=== PATIENT | male | born 1960 | race Caucasian/White ===

== ENCOUNTER 2016-07-04 09:58 | Inpatient (IN) | payer OTHER ==
[2016-07-04] VITALS (7 sets, daily range): BP systolic 97–103; BP diastolic 63–68; PULSE 58–96; TEMP 36.6–36.9; O2SAT 93–97; Ht 162.6 cm; Wt 46.3 kg
[~2016-07-04] VITALS: Ht 162.6 cm; Wt 46.3 kg
[~2016-07-04 09:58] MED LIST: CALC500C70 PO; DFL100 PO; LORA-741 PO; METO5TAB2 PO; MPRUDL PO; NUTR-1276 PEG; OXYC1TAB3 PO; PRED-301 PO; PRED10TA PO; PROC1TAB18 PO; TACR0.5C5 PO; TRAM-10 PO; VALA500T60 PO; WARF3TAB PO; WARF3TAB6 PO
[2016-07-04] MEDS ORDERED: SODIUM CHLORIDE 0.9% 500ML 500 ML IV STA (10:17)
[2016-07-04] MEDS ORDERED: ALBUT/IPRATROP 3MG/0.5MG NEB 3 ML VIAL INH STA (10:17)
[2016-07-04] MEDS ORDERED: METO25TA56 PO (10:21)
[2016-07-04] MEDS ORDERED: ESCI1TAB6 PO (10:21)
[2016-07-04] MEDS ORDERED: ONDA8TAB6 PO (10:21)
[2016-07-04] MEDS ORDERED: PROC1TAB5 PO (10:21)
--- NOTE | 2016-07-04 10:21 | EMERGENCY ROOM VISIT NOTE ---
History First contact with patient: 10:08 Chief Complaint: RESPIRATORY PROBLEMS Stated Complaint: CAN'T BREATHE, CHEST HURTS, FEVER, COUGHING Nursing Triage Summary: pt c/o cold sx stratedtuesday and reports getting harder to breath. had fever yesterday and this am did not take anything. pt has hx of pneumonia History of Present Illness The patient is a 56 year old male who presents to the Emergency Room with complaints of flulike symptoms. The patient states his symptoms started 2 days ago. He reports arthralgias, myalgias, cough and fever. He states his temperature was 100.7F yesterday. The patient states he is having increasing difficulty breathing. The patient has a history of bone marrow transplant in 2013 and does take Prograf. The patient has a history of pulmonary embolus but states that his Coumadin was stopped 2 days ago which was one year after his pulmonary embolus. The patient states his entire family have similar symptoms. He reports pain with deep inspiration. He reports sinus congestion and cough. He denies any abdominal pain, nausea or vomiting. He denies any extremity swelling. Review of Systems A 10 system review of systems was completed with positives and pertinent negatives listed in the HPI. Past Medical/Surgical History Medical Problems: (1) Compression fracture (2) Emphysema (3) H/O cardiac arrest (4) H/O steroid-induced myopathy (5) History of DVT (deep vein thrombosis) (6) History of pulmonary embolus (PE) (7) History of seizure (8) HISTORY OF TOBACCO USE (9) Myelodysplastic syndrome (10) Nonischemic cardiomyopathy (11) Osteoporosis (12) PERNICIOUS ANEMIA (13) Pneumonia (14) Scleroderma Surgical Problems: (1) H/O esophagogastroduodenoscopy (2) H/O tracheostomy (3) History of bone marrow transplant (4) S/p facial reconstruction surgery (5) S/P IVC filter (6) S/P tonsillectomy Family History Diabetes mellitus FATHER FH: cancer MOTHER (lung) FH: heart disease FATHER FH: lung disease Hypertension Social History Smoking Status: Never Smoker Alcohol Use: none Drug Use: none Marital Status: Housing Status: lives with family Occupation Status: employed Current/Historical Medications Scheduled Atovaquone (Mepron), 10 ML PO DAILY Calcium/Vitamin D (Os-Herb 500 Plus D), 1,000 MG PO DAILY Fluconazole (Fluconazole), 400 MG PO DAILY Metoprolol Succinate (Toprol Xl), 6.25 MG PO BID Prednisone (Prednisone), 5 MG PO UD Prednisone Tab (Prednisone), 10 MG PO UD Tacrolimus (Prograf), 0.5 MG PO Q2D Valacyclovir (Valtrex), 1 TAB PO DAILY AT LUNCH Scheduled PRN Lorazepam (Ativan), 0.5 MG PO DAILY PRN for Anxiety Ondansetron Hcl (Zofran), 8 MG PO BID PRN for Nausea Oxycodone Ir (Roxicodone Ir), 5 MG PO Q4H PRN for Pain Tramadol (Ultram), 1 TAB PO TID PRN for Pain Allergies Coded Allergies: Sulfamethoxazole w/Trimethoprim (Verified Allergy, Severe, ANAPHYLAXIS; VERY SICK; HOSPITALIZED, 07/04/16) Celecoxib (Verified Allergy, Unknown, hives/rash, 07/04/16) Physical Exam Vital Signs Date Time Temp Pulse Resp B/P Pulse Ox O2 Delivery O2 Flow Rate FiO2 07/04/16 11:02 106 22 114/73 98 Nasal Cannula 2.0 07/04/16 11:00 Nasal Cannula 2.0 07/04/16 10:29 98 07/04/16 10:16 95 Nasal Cannula 2.0 07/04/16 10:05 Nasal Cannula 2.0 07/04/16 10:00 36.9 101 20 92/63 82 Room Air Physical Exam VITALS: Vitals are noted on the nurse's note and reviewed by myself. Vital signs stable. The patient was initially hypotensive, tachycardic and hypoxic in triage. The patient's pulse oximetry was 94% on room air when the probe was applied to his ear. GENERAL: This is a 56-year-old male, in no acute distress, nondiaphoretic, 4 out in 7. SKIN: The skin was without rashes, erythema, edema, or bruising. There is no tenting of the skin. Capillary reflex less than 2 seconds. HEAD: Normocephalic atraumatic. EARS: External auditory canals clear, tympanic membranes pearly pierce without erythema or effusion bilaterally. EYES: Pupils equal round and reactive to light and accommodation. Conjunctivae without injection, sclerae without icterus. Extraocular movements intact. NOSE: Patent, turbinates without inflammation or discharge. MOUTH: Mucous membranes moist. Tonsils are not enlarged. Pharynx without erythema or exudate. Uvula midline. Airway patent. Tongue does not deviate. NECK: Supple without nuchal rigidity. No lymphadenopathy. No thyromegaly. Cervical spine is nontender. No JVD. HEART: Regular rate and rhythm without murmurs gallops or rubs. LUNGS: Rhonchi throughout. No retractions or accessory muscle use. ABDOMEN: Positive bowel sounds x 4. Soft, nontender, without masses or organomegaly. MUSCULOSKELETAL: No muscle atrophy, erythema, or edema noted. Full range of motion in all extremities Normal gait. Strength 5/5 throughout. NEURO: Patient was alert and oriented to person place and time. No focal neurological deficits. Medical Decision & Procedures ER Provider Diagnostic Interpretation: CHEST ONE VIEW PORTABLE CLINICAL HISTORY: Cough. Fever. COMPARISON STUDY: Chest radiograph July 15, 2014. FINDINGS: An IVC filter and vertebral augmentation are noted. There are multiple compression fractures within visualized portions of the spine. There is no pneumothorax or pleural effusion. There are mild right lower lung opacities. Mild interstitial thickening is noted. Cardiac size is normal. The patient is rotated. There is suspected calcific tendinitis of the right rotator cuff. Apical bulla or blebs are noted. IMPRESSION: Mild bibasilar opacities and interstitial thickening. The findings may reflect an infectious process or less likely pulmonary edema. Laboratory Results 07/04/16 10:24 Red Blood Count 4.25, Mean Corpuscular Volume 105.4, Mean Corpuscular Hemoglobin 36.2, Mean Corpuscular Hemoglobin Concent 34.4, Mean Platelet Volume 10.5, Neutrophils (%) (Auto) 82.4, Lymphocytes (%) (Auto) 7.5, Monocytes (%) ( Auto) 9.6, Eosinophils (%) (Auto) 0.1, Basophils (%) (Auto) 0.1, Neutrophils # ( Auto) 14.85, Lymphocytes # (Auto) 1.36, Monocytes # (Auto) 1.73, Eosinophils # ( Auto) 0.02, Basophils # (Auto) 0.02 07/04/16 10:24 Test 07/04/16 10:24 07/04/16 10:31 07/04/16 10:33 White Blood Count 18.04 K/uL (4.8-10.8) Red Blood Count 4.25 M/uL (4.7-6.1) Hemoglobin 15.4 g/dL (14.0-18.0) Hematocrit 44.8 % (42-52) Mean Corpuscular Volume 105.4 fL (80-100) Mean Corpuscular Hemoglobin 36.2 pg (25-34) Mean Corpuscular Hemoglobin Concent 34.4 g/dl (32-36) Platelet Count 150 K/uL (130-400) Mean Platelet Volume 10.5 fL (7.4-10.4) Neutrophils (%) (Auto) 82.4 % Lymphocytes (%) (Auto) 7.5 % Monocytes (%) (Auto) 9.6 % Eosinophils (%) (Auto) 0.1 % Basophils (%) (Auto) 0.1 % Neutrophils # (Auto) 14.85 K/uL (1.4-6.5) Lymphocytes # (Auto) 1.36 K/uL (1.2-3.4) Monocytes # (Auto) 1.73 K/uL (0.11-0.59) Eosinophils # (Auto) 0.02 K/uL (0-0.5) Basophils # (Auto) 0.02 K/uL (0-0.2) RDW Standard Deviation 57.1 fL (36.4-46.3) RDW Coefficient of Variation 14.8 % (11.5-14.5) Immature Granulocyte % (Auto) 0.3 % Immature Granulocyte # (Auto) 0.06 K/uL (0.00-0.02) Prothrombin Time 13.4 SECONDS (9.0-12.0) Prothromb Time International Ratio 1.2 (0.9-1.1) Activated Partial Thromboplast Time 40.6 SECONDS (21.0-31.0) Partial Thromboplastin Ratio 1.6 Anion Gap 10.0 mmol/L (3-11) Est Creatinine Clear Calc Drug Dose 36.7 ml/min Estimated GFR () 59.0 Estimated GFR (Non- 50.9 BUN/Creatinine Ratio 19.6 (10-20) Calcium Level 8.4 mg/dl (8.5-10.1) Total Bilirubin 0.6 mg/dl (0.2-1) Aspartate Amino Transf (AST/SGOT) 26 U/L (15-37) Alanine Aminotransferase (ALT/SGPT) 25 U/L (12-78) Alkaline Phosphatase 48 U/L (45-117) Troponin I < 0.015 ng/ml (0-0.045) Total Protein 7.6 gm/dl (6.4-8.2) Albumin 3.6 gm/dl (3.4-5.0) Globulin 4.0 gm/dl (2.5-4.0) Albumin/Globulin Ratio 0.9 (0.9-2) Immunoglobulin G 661.0 mg/dL (700-1600) Immunoglobulin A 117.0 mg/dL (70-400) Immunoglobulin M 124.0 mg/dL (40-230) Hepatitis C Antibody Screen NEG (NEG) Bedside Lactic Acid Venous 1.43 mmol/L (0.90-1.70) Influenza Type A Antigen Neg for Influ A (NEG) Influenza Type B Antigen Neg for Influ B (NEG) Medications Administered Medications (Trade) Dose Ordered Sig/Monalisa Route Start Time Stop Time Status Last Admin Dose Admin Albuterol/ Ipratropium 3 ml 3 ml NOW STAT INH 07/04/16 10:17 07/04/16 10:19 DC 07/04/16 10:33 3 ML Sodium Chloride (Nss 500ml) 500 ml @ 999 mls/hr Q31M STAT IV 07/04/16 10:17 07/04/16 10:47 DC 07/04/16 10:33 999 MLS/HR Piperacillin Sod/ Tazobactam Sod (Zosyn Iv) 4.5 gm NOW STAT IV 07/04/16 10:43 07/04/16 10:47 DC 07/04/16 10:58 4.5 GM Levofloxacin (Levaquin / D5W) 750 mg NOW ONCE IV 07/04/16 10:45 07/04/16 10:47 DC 07/04/16 11:36 750 MG Procedure The patient was monitored on a manager monitoring. He maintained a normal sinus rhythm without ectopy. The patient's initial triage pulse oximetry was 82% on room air. There was some difficulty obtaining the pulse ox. When he was applied to his ear it was approximately 94% on room air. He was placed on 2 L of oxygen. ECG Indication: SOB/dyspnea Rate (beats per minute): 90 Rhythm: normal sinus Findings: no acute ischemic change Change: no significant change ED Course The patient was seen and examined. Previous visits were reviewed. The patient was afebrile but does report a fever yesterday. He has a leukocytosis of 18.04 with left shift. His BUN/creatinine creatinine are slightly elevated. Rapid influenza was negative. Lactic acid was not elevated. Blood cultures are pending. Chest x-ray reveals by basilar opacities The patient was given a DuoNeb He was hydrated with 500 mL's normal saline He was given IV Zosyn and IV Levaquin The patient presents with upper respiratory symptoms, likely infectious in etiology. The chest x-ray reveals bibasilar opacities and this likely represents a pneumonia. He has been hypoxic. He is immunocompromised and has had a fever, leukocytosis with left shift. The patient will require further evaluation and management in the hospital. I discussed the case with the [facility] service and they will evaluate the patient. The patient was also seen and examined by who agrees with the assessment and treatment plan. Medical Decision DIFFERENTIAL DIAGNOSIS: Aortic dissection, myocarditis, pericarditis, cervical disc disease, costochondritis, herpes zoster, rib fracture, pleuritis, pneumonia , pulmonary embolus, tension pneumothorax, anxiety disorder, somatoform disorder , choledocholithiasis, status, esophagitis, esophageal spasm, esophageal reflux , esophageal rupture, pancreatitis, peptic ulcer disease, cardiac ischemia, ST elevation ID, acute coronary syndrome, arrhythmia, coronary artery vasospasm. vavular heart disease, coronary artery disease, among others. Impression Primary Impression: Pneumonia Additional Impression: Hypoxia Departure Information Referrals Lew Morelos M.D. (PCP) Patient Instructions [facility] Problem Qualifiers Primary Impression: Pneumonia
--- NOTE | 2016-07-04 10:37 | DIAGNOSTIC IMAGING REPORT ---
CHEST ONE VIEW PORTABLE CLINICAL HISTORY: Cough. Fever. COMPARISON STUDY: Chest radiograph July 15, 2014. FINDINGS: An IVC filter and vertebral augmentation are noted. There are multiple compression fractures within visualized portions of the spine. There is no pneumothorax or pleural effusion. There are mild right lower lung opacities. Mild interstitial thickening is noted. Cardiac size is normal. The patient is rotated. There is suspected calcific tendinitis of the right rotator cuff. Apical bulla or blebs are noted. IMPRESSION: Mild bibasilar opacities and interstitial thickening. The findings may reflect an infectious process or less likely pulmonary edema. Electronically signed by: Aric Hicks M.D. 07/04/2016 10:35 AM Dictated Date/Time: 07/04/2016 10:31 AM
[2016-07-04 10:39] LABS: HEMATOCRIT 44.8 % (42-52); MEAN CELL VOLUME 105.4 fL (80-100); MEAN CORPUSCULAR HEMOGLOBIN 36.2 pg (25-34); MEAN CORPUSCULAR HGB CONC 34.4 g/dl (32-36); MEAN PLATELET VOLUME 10.5 fL (7.4-10.4); PLATELET COUNT 150 K/uL (130-400); RED BLOOD COUNT 4.25 M/uL (4.7-6.1); WHITE BLOOD COUNT 18.04 K/uL (4.8-10.8)
[2016-07-04] MEDS ORDERED: PIPERACILLIN/TAZOBACTAM 4.5 GM/100ML D5W IV STA (10:43)
[2016-07-04] MEDS ORDERED: LEVAQUIN 750MG / 150ML D5W IV ONE (10:45)
[2016-07-04 10:46] LABS: INR 1.2 (0.9-1.1); PARTIAL THROMBOPLASTIN RATIO 1.6; PROTHROMBIN TIME (PATIENT) 13.4 SECONDS (9.0-12.0)
--- NOTE | 2016-07-04 10:49 | EMERGENCY ROOM VISIT NOTE ---
ED Visit Note First contact with patient: 10:08 56-year-old male with respiratory distress was fully evaluated by Charmaine Coyne. Please see her note. I also independently evaluated the patient. The patient appears to have a pneumonia. He does also have a prior history of congestive heart failure. Multiple labs and imaging were obtained. Please see the PAs note. The patient will require admission. The hospitalist was consulted.
[2016-07-04 10:58] LABS: BASO % 0.1 %; BASO ABS # 0.02 K/uL (0-0.2); COMPLETE YES; EOS % 0.1 %; IG% 0.3 %; LYMPH % 7.5 %; LYMPH ABS # 1.36 K/uL (1.2-3.4); MONO % 9.6 %; NEUT % 82.4 %
[2016-07-04 11:04] LABS: ALT/SGPT 25 U/L (12-78); AST/SGOT 26 U/L (15-37); BLOOD UREA NITROGEN 29 mg/dl (7-18); BUN/CREATININE RATIO 19.6 (10-20); CALCIUM 8.4 mg/dl (8.5-10.1); CARBON DIOXIDE 24 mmol/L (21-32); CHLORIDE 101 mmol/L (98-107); GLUCOSE 102 mg/dl (70-99); POTASSIUM 4.1 mmol/L (3.5-5.1); SODIUM 135 mmol/L (136-145)
[2016-07-04 11:09] LABS: ALB/GLOB RATIO 0.9 (0.9-2); ALKALINE PHOSPHATASE 48 U/L (45-117)
[2016-07-04] MEDS ORDERED: METO1TAB31 PO (12:06)
[2016-07-04] MEDS ORDERED: POLYETHYLENE (MIRALAX) 17 GM PACK PO PRN (12:15)
[2016-07-04] MEDS ORDERED: ACETAMINOPHEN 325 MG TAB PO PRN (12:15)
[2016-07-04] MEDS ORDERED: TRAMADOL HCL 50 MG TAB PO PRN (12:45)
[2016-07-04] MEDS ORDERED: LORAZEPAM 0.5 MG TAB PO PRN (12:45)
[2016-07-04] MEDS ORDERED: ONDANSETRON 8 MG TAB PO PRN (12:45)
[2016-07-04] MEDS ORDERED: OXYCODONE HCL IR 5 MG TAB (IMMEDIATE RELEASE) PO PRN (12:45)
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
[2016-07-04] MEDS ORDERED: COUGH DROP (SUGAR FREE) LOZ 24 LOZ/1 BOX ONE (13:29)
[2016-07-04] MEDS ORDERED: LEVOFLOXACIN CONSULT ACTIVE PRN (14:15)
[2016-07-04] MEDS ORDERED: VANCOMYCIN CONSULT ACTIVE PRN (14:30)
[2016-07-04] MEDS ORDERED: PIPERACILL/TAZOBAC CONSULT ACTIVE PRN (14:30)
[2016-07-04] MEDS ORDERED: VANCOMYCIN INJ 1,100 MG in SODIUM CHLORIDE 0.9% 250ML 250 ML IV ONE (14:45)
--- NOTE | 2016-07-04 14:55 | Oncology Consultation ---
Oncology/Heme Consultation Date of Consultation: Jul 04, 2016. Attending Physician: Pooja. Guajardo S Reason for Consultation: History of myelodysplasia History of Present Illness is a long-term patient of Dr. Vigil. He has a history of myelodysplasia the dates back to at least 2013 and is status post bone marrow transplant. This is been complicated by chronic [id number] disease. The patient describes GI problems with this. He also states that post transplant he did have a pulmonary embolism. That particular year was complicated and he did have a feeding tube that has since been removed. Prior to the bone marrow transplant he states that he has a history of scleroderma in addition. He is now minute with what sounds like and what clinically appears to be a pneumonia. He denies significant weight loss nausea or vomiting. He denies really any significant shaking chills. He denies worsening shortness of breath. The chart reflects that he had a few days prior to admission fever and productive cough Past Medical/Surgical History Medical Problems: (1) Rib pain on right side Status: Acute Family History Diabetes mellitus FATHER FH: cancer MOTHER (lung) FH: heart disease FATHER FH: lung disease Hypertension Social History Smoking Status: Current Every Day Smoker Alcohol Use: occasionally Housing Status: lives with family Allergies Coded Allergies: Sulfamethoxazole w/Trimethoprim (Verified Allergy, Severe, ANAPHYLAXIS; VERY SICK; HOSPITALIZED, 07/04/16) Celecoxib (Verified Allergy, Unknown, hives/rash, 07/04/16) Home Medications Scheduled Atovaquone (Mepron), 10 ML PO DAILY Calcium/Vitamin D (Os-Herb 500 Plus D), 1,000 MG PO DAILY Fluconazole (Fluconazole), 400 MG PO DAILY Metoprolol Succinate (Toprol Xl), 6.25 MG PO BID Prednisone (Prednisone), 5 MG PO UD Prednisone Tab (Prednisone), 10 MG PO UD Tacrolimus (Prograf), 0.5 MG PO Q2D Valacyclovir (Valtrex), 1 TAB PO DAILY AT LUNCH Scheduled PRN Lorazepam (Ativan), 0.5 MG PO DAILY PRN for Anxiety Ondansetron Hcl (Zofran), 8 MG PO BID PRN for Nausea Oxycodone Ir (Roxicodone Ir), 5 MG PO Q4H PRN for Pain Tramadol (Ultram), 1 TAB PO TID PRN for Pain Current Inpatient Medications Current Inpatient Medications Medications (Trade) Dose Ordered Sig/Monalisa Route Start Time Stop Time Status Last Admin Dose Admin Heparin Sodium (Porcine) 5000 unit 5,000 unit Q8 SQ 07/04/16 22:00 08/03/16 21:59 Sodium Chloride (Nss 1000ml) 1,000 ml @ 100 mls/hr Q10H IV 07/04/16 13:00 07/05/16 08:59 Acetaminophen (Tylenol Tab) 650 mg Q4H PRN PO 07/04/16 12:15 08/03/16 12:14 Polyethylene 17 gm 17 gm DAILY PRN PO 07/04/16 12:15 08/03/16 12:14 Levofloxacin/Prmx (Levaquin / D5W/ Premixed D5W) 150 ml @ 100 mls/hr Q2D@1100 IV 07/06/16 11:00 07/11/16 10:59 Calcium/Vitamin D (Caltrate Plus Tab) 1 tab BID PO 07/04/16 21:00 08/03/16 20:59 Fluconazole (Diflucan Tab) 400 mg DAILY PO 07/05/16 09:00 08/04/16 08:59 Lorazepam (Ativan Tab) 0.5 mg DAILY PRN PO 07/04/16 12:45 08/03/16 12:44 Ondansetron HCl (Zofran Tab) 8 mg BID PRN PO 07/04/16 12:45 08/03/16 12:44 Oxycodone HCl (Roxicodone Immediate Rel Tab) 5 mg Q4H PRN PO 07/04/16 12:45 07/18/16 12:44 Prednisone (PredniSONE TAB) 5 mg MoWeFr@0900 PO 07/05/16 09:00 08/04/16 08:59 Prednisone (PredniSONE TAB) 10 mg SuTuThSa@0900 PO 07/06/16 09:00 08/05/16 08:59 Tacrolimus (Prograf Cap) 0.5 mg Q2D PO 07/05/16 09:00 08/04/16 08:59 Tramadol HCl (Ultram Tab) 50 mg TID PRN PO 07/04/16 12:45 08/03/16 12:44 Valacyclovir HCl (Valtrex Tab) 500 mg DAILY PO 07/05/16 09:00 08/04/16 08:59 Atovaquone (Mepron Susp) 1,500 mg DAILY PO 07/05/16 09:00 08/04/16 08:59 Levofloxacin (Consult) 1 ea UD PRN N/A 07/04/16 14:15 08/03/16 14:14 Vancomycin HCl (Consult) 1 ea UD PRN N/A 07/04/16 14:30 08/03/16 14:29 Piperacillin Sod/ Tazobactam Sod (Consult) 1 ea UD PRN N/A 07/04/16 14:30 08/03/16 14:29 Metoprolol Succinate 6.25 mg 6.25 mg BID PO 07/04/16 21:00 08/03/16 20:59 Vancomycin HCl 1100 mg/Sodium Chloride 272 ml @ 125 mls/hr TODAY@1445 ONCE IV 07/04/16 14:45 07/04/16 16:55 Piperacillin Sod/ Tazobactam Sod/ Dextrose (Zosyn Iv/D5 100ml) 115 ml @ 28.75 mls/ hr Q8H IV 07/04/16 16:00 07/11/16 15:59 Review of Systems Constitutional: Negative for weight loss, night sweats, or fever Eyes: Negative for event change of vision ENT: Negative for epistaxis, nasal discharge, sore throat, or deafness Cardiovascular: Negative for chest pain, palpitations, dizziness, diaphoresis Respiratory: Negative for new shortness of breath,hemoptysis, or purulent cough Gastrointestinal: Negative for diarrhea, hematemesis, melena, nausea, vomiting , or dyspepsia Integumentary (skin): Negative for rash or jaundice discoloration Genitourinary: Negative for urinary frequency, hematuria, or dysuria Neurological: Negative for weakness, seizure activity, headache, or dizziness Lymphatic/Hematologic: Negative for petechiae, bleeding or new adenopathy Musculoskeletal: Negative for new joint or back pain Allergic/Immunologic: Negative for unusual rash or pruritis. Physical Exam Date Time Temp Pulse Resp B/P Pulse Ox O2 Delivery O2 Flow Rate FiO2 07/04/16 13:35 36.9 96 18 100/64 96 Nasal Cannula 2.0 07/04/16 12:31 92 16 93/64 96 Nasal Cannula 2.0 07/04/16 11:02 106 22 114/73 98 Nasal Cannula 2.0 07/04/16 11:00 Nasal Cannula 2.0 07/04/16 10:29 98 07/04/16 10:16 95 Nasal Cannula 2.0 07/04/16 10:05 Nasal Cannula 2.0 07/04/16 10:00 36.9 101 20 92/63 82 Room Air Constitutional: vitals are stable. Eyes: Eyes are ZAMZAM EOMI without conjuctival erythema or icterus. ENT: External examination was negative for masses. Neck: Negative for masses or palpable thyromegaly Respiratory: Lung sounds were generally clear bilaterally Cardiovascular: Heart was RRR without significant murmur, gallops aoe rubs Gastrointestinal: No palpable hepatic or splenomegaly. The abdomen was soft with normal bowel sounds. Lymphatic system: there was no palpable peripheral lymphadenopathy Musculoskeletal System: The musculoskeletal system seemed concordant with age. Skin: The skin was negative for jaundice. Neurologic exam: The exam was negative for any focal findings. Deep tendon reflexes were equal and symmetrical. Psychiatric exam: Was essentially negative with normal mood and effect. Extremities: Negative for edema erythema Laboratory Results Last 24 Hours Test 07/04/16 10:24 07/04/16 10:31 07/04/16 10:33 07/04/16 14:30 White Blood Count 18.04 K/uL Red Blood Count 4.25 M/uL Hemoglobin 15.4 g/dL Hematocrit 44.8 % Mean Corpuscular Volume 105.4 fL Mean Corpuscular Hemoglobin 36.2 pg Mean Corpuscular Hemoglobin Concent 34.4 g/dl Platelet Count 150 K/uL Mean Platelet Volume 10.5 fL Neutrophils (%) (Auto) 82.4 % Lymphocytes (%) (Auto) 7.5 % Monocytes (%) (Auto) 9.6 % Eosinophils (%) (Auto) 0.1 % Basophils (%) (Auto) 0.1 % Neutrophils # (Auto) 14.85 K/uL Lymphocytes # (Auto) 1.36 K/uL Monocytes # (Auto) 1.73 K/uL Eosinophils # (Auto) 0.02 K/uL Basophils # (Auto) 0.02 K/uL RDW Standard Deviation 57.1 fL RDW Coefficient of Variation 14.8 % Immature Granulocyte % (Auto) 0.3 % Immature Granulocyte # (Auto) 0.06 K/uL Prothrombin Time 13.4 SECONDS Prothromb Time International Ratio 1.2 Activated Partial Thromboplast Time 40.6 SECONDS Partial Thromboplastin Ratio 1.6 Sodium Level 135 mmol/L Potassium Level 4.1 mmol/L Chloride Level 101 mmol/L Carbon Dioxide Level 24 mmol/L Anion Gap 10.0 mmol/L Blood Urea Nitrogen 29 mg/dl Creatinine 1.50 mg/dl Est Creatinine Clear Calc Drug Dose 36.7 ml/min Estimated GFR () 59.0 Estimated GFR (Non- 50.9 BUN/Creatinine Ratio 19.6 Random Glucose 102 mg/dl Calcium Level 8.4 mg/dl Total Bilirubin 0.6 mg/dl Aspartate Amino Transf (AST/SGOT) 26 U/L Alanine Aminotransferase (ALT/SGPT) 25 U/L Alkaline Phosphatase 48 U/L Troponin I < 0.015 ng/ml Total Protein 7.6 gm/dl Albumin 3.6 gm/dl Globulin 4.0 gm/dl Albumin/Globulin Ratio 0.9 Hepatitis C Antibody Screen NEG Bedside Lactic Acid Venous 1.43 mmol/L Influenza Type A Antigen Neg for Influ A Influenza Type B Antigen Neg for Influ B Assessment & Plan History of myelodysplasia status post bone marrow transplant. Currently is being treated for pneumonia. 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 His CBC is quite stable. We will follow along with you.
--- NOTE | 2016-07-04 15:20 | Pharmacy Progress Note ---
Pharmacy Antibiotic Consult Date of Service: Jul 04, 2016. Pharmacy Dosing Scope Pharmacy is consulted to initiate vancomycin, zosyn, and levaquin IV dosing therapy, order appropriate labs and adjust drug dose/frequency. Subjective The patient is a 56 year old male admitted on Jul 04, 2016 at 12:23. Objective Height (Feet): 5 Height (Inches): 4.00 Weight (Kilograms): 47.700 Lab Results (24hrs): Laboratory Tests Test 07/04/16 10:24 BUN/Creatinine Ratio 19.6 Blood Urea Nitrogen 29 mg/dl Creatinine 1.50 mg/dl White Blood Count 18.04 K/uL Red Blood Count 4.25 M/uL Hemoglobin 15.4 g/dL Hematocrit 44.8 % Mean Corpuscular Volume 105.4 fL Mean Corpuscular Hemoglobin 36.2 pg Mean Corpuscular Hemoglobin Concent 34.4 g/dl Platelet Count 150 K/uL Mean Platelet Volume 10.5 fL Neutrophils (%) (Auto) 82.4 % Lymphocytes (%) (Auto) 7.5 % Monocytes (%) (Auto) 9.6 % Eosinophils (%) (Auto) 0.1 % Basophils (%) (Auto) 0.1 % Neutrophils # (Auto) 14.85 K/uL Lymphocytes # (Auto) 1.36 K/uL Monocytes # (Auto) 1.73 K/uL Eosinophils # (Auto) 0.02 K/uL Basophils # (Auto) 0.02 K/uL Assessment & Plan Patient started on vancomycin, levaquin and zosyn for possible pneumonia infection. BC x 2, nasal swab are ordered. Presenting with persistent cough and shortness of breath, fever past few days. Of note, patient immunocompromised due to myelodysplastic syndrome. Vancomycin: * LD: 1100 mg (~24 mg/kg) iv x 1 given * Will order MD of 750 mg (~16 mg/kg) iv q 20 hrs to achieve an estimated trough ~19 mcg/ml (goal 15-20 mcg/ml for PNA) * Estimated kinetics: t1/2~20 hrs, ke~0.035 hr-1, CrCl ~37 ml/min; unsure of baseline Scr * Will reassess renal function in am before ordering a trough, since renal function may improve Zosyn: * 4.5 gm iv x 1 ; will order 3.375 gm iv q 8 hrs - which is appropriate for CrCl >20 ml/min (actual ~37 ml/min) Levaquin: * 750 mg iv x 1 ; will order 750 mg iv q 48 hrs - which is appropriate for CrCl 20-49 ml/min to adjust to q48 interval Pharmacy will continue to follow and will adjust dose/frequency as necessary. Thank you
[2016-07-04] MEDS: SODIUM CHLORIDE 0.9% 1000ML 1,000 ML IV SCH (15:51)
[2016-07-04] MEDS: PIPERACILL/TAZOBAC IV 3.375 GM in DEXTROSE 5% 100ML IV SCH (16:00)
[2016-07-04] MEDS ORDERED: PIPERACILL/TAZOBAC IV 2.25 GM in DEXTROSE 5% 100ML 100 ML IV SCH (16:00)
[2016-07-04 16:22] LABS: INFLUENZA A PCR Neg for Influ A (NEG); INFLUENZA B PCR Neg for Influ B (NEG)
[2016-07-04] MEDS ORDERED: VANCOMYCIN INJ 1,000 MG in SODIUM CHLORIDE 0.9% 250ML 250 ML IV SCH (21:00)
[2016-07-04] MEDS ORDERED: METOPROLOL SUCC 25MG EXT REL TAB PO SCH (21:00)
[2016-07-04] MEDS: METOPROLOL SUCC 25MG EXT REL TAB PO SCH (21:37)
[2016-07-04] MEDS: CALCIUM 600MG + VIT D 400 IU TAB PO SCH (21:37)
[2016-07-04] MEDS: HEPARIN SOD 5000 UNIT/0.5 ML CARP SQ SCH (21:41)
[2016-07-05] VITALS (10 sets, daily range): BP systolic 99–152; BP diastolic 58–84; PULSE 57–78; TEMP 36.4–36.7; O2SAT 91–98
[2016-07-05] MEDS: SODIUM CHLORIDE 0.9% 1000ML 1,000 ML IV SCH (00:31)
[2016-07-05] MEDS: PIPERACILL/TAZOBAC IV 3.375 GM in DEXTROSE 5% 100ML IV SCH ×3 (00:32→16:21)
[2016-07-05 01:00] LABS: URINE APPEARANCE CLEAR (CLEAR); URINE BILIRUBIN NEG (NEG); URINE COLOR YELLOW; URINE EPITHELIAL CELL AUTO 0-5 /lpf (0-5); URINE NITRITE NEG (NEG); URINE SPECIFIC GRAVITY 1.017 (1.000-1.030); UROBILINOGEN NEG (NEG); ZZUR CULT IF INDIC CLEAN CATCH NO
[2016-07-05 01:05] LABS: MANUAL MICROSCOPIC REQUIRED? NO; REVIEW REQ? NO
[2016-07-05 05:46] LABS: BASO % 0.1 %; BASO ABS # 0.01 K/uL (0-0.2); COMPLETE YES; EOS % 0.6 %; HEMATOCRIT 36.7 % (42-52); IG% 0.2 %; LYMPH % 9.9 %; LYMPH ABS # 0.87 K/uL (1.2-3.4); MEAN CELL VOLUME 104.6 fL (80-100); MEAN CORPUSCULAR HEMOGLOBIN 35.3 pg (25-34); MEAN CORPUSCULAR HGB CONC 33.8 g/dl (32-36); MEAN PLATELET VOLUME 10.1 fL (7.4-10.4); MONO % 10.7 %; NEUT % 78.5 %; PLATELET COUNT 119 K/uL (130-400); RED BLOOD COUNT 3.51 M/uL (4.7-6.1); WHITE BLOOD COUNT 8.81 K/uL (4.8-10.8)
[2016-07-05] MEDS: HEPARIN SOD 5000 UNIT/0.5 ML CARP SQ SCH ×3 (06:07→21:25)
[2016-07-05 06:22] LABS: CALCIUM 7.2 mg/dl (8.5-10.1); CREATININE 1.1 mg/dl (0.60-1.40); POTASSIUM 3.7 mmol/L (3.5-5.1)
[2016-07-05] MEDS: CALCIUM 600MG + VIT D 400 IU TAB PO SCH ×2 (08:17→21:22)
[2016-07-05] MEDS: FLUCONAZOLE 100 MG TAB PO SCH (08:17)
[2016-07-05] MEDS: ATOVAQUONE 750 MG/5 ML UDC PO SCH (08:17)
[2016-07-05] MEDS: TACROLIMUS 0.5 MG CAP PO SCH (08:18)
[2016-07-05] MEDS ORDERED: VANCOMYCIN INJ 750 MG in SODIUM CHLORIDE 0.9% 250ML 250 ML IV SCH ×2 (09:00→11:00)
[2016-07-05] MEDS: METOPROLOL SUCC 25MG EXT REL TAB PO SCH ×2 (09:00→21:22)
--- NOTE | 2016-07-05 11:21 | Progress Note ---
Internal Med Progress Note Date of Service: Jul 05, 2016. Provider Documentation: SUBJECTIVE: Patient is feeling much better today. Clinically significant improvement. SOB has resolved, cough with sputum- improved, no chest pain Afebrile since admission, no chills, no leg edema. Off oxygen, on RA Tolerating PO well OBJECTIVE: Vital Signs-as noted below Exam: General-AAOX3, no distress Neck - No JVD, Supple Lungs-AEBE decreased, coarse BS, no wheezing, rhonchi, rales Heart-S1, S2 normal, no murmurs Abdomen-Left side - small incision from prior PEG tube +, no discharge noted. No signs of infection noted. Soft, non tender, non distended, BS present Extremities-No edema Lab data as noted below. ASSESSMENT & PLAN: Assessment and Plan : SEPSIS DUE TO PNEUMONIA, IMMUNOCOMPROMISED : Sepsis resolved. Afebrile, Leucocytosis resolved, Clinically improved. - Immunocompromised due to myelodysplastic syndrome currently on Tacrolimus, Prednisone, and atovaquone -Off oxygen , hypoxia resolved as well -IV Levofloxacin, IV Zosyn, IV Vancomycin (Day 2)- okay to discontinue IV Vancomycin as MRSA is negative -Work up- CXR- Basilar opacities - infectious process vs pulmonary edema, Cultures- pending, Urine, Blood cx, Sputum cx- pending, Lactic acid normal CHEMA - Resolved - pre renal due to poor PO intake and vomiting - IVF- okay to discontinue as tolerating PO well - monitor renal functions, avoid nephrotoxic agents when able HX MYELODYSPLASTIC SYNDROME S/P BONE MARROW TRANSPLANT - currently on tacrolimus, Prednisone, and atovaquone - continue - BP stable, no role for stress dose steroids - follows with Dr. Vigil - oncology consult placed- No further recommendations. Appreciate inputs. HX OF PROVOKED DVT/PE S/P IVC FILTER -On coumadin x 2 years, off it since 07/02/16. -DVT prophylaxis DVT PROPHYLAXIS - SQ Heparin CODE STATUS - Patient is a full code as per my discussion with him. DISPO -Likely discharge home when stable Vital Signs: Date Time Temp Pulse Resp B/P Pulse Ox O2 Delivery O2 Flow Rate FiO2 07/05/16 08:12 36.6 63 20 99/58 92 Room Air 07/05/16 08:00 Room Air 07/05/16 04:00 98 Room Air 07/05/16 03:51 36.6 58 18 113/71 98 Room Air 07/05/16 00:00 93 Room Air 07/04/16 23:48 36.8 58 18 102/67 93 Room Air 07/04/16 21:35 68 103/68 07/04/16 20:00 96 Nasal Cannula 2.0 07/04/16 19:49 36.9 63 16 99/65 96 Room Air 07/04/16 16:00 97 Nasal Cannula 2.0 07/04/16 15:43 36.6 68 16 97/63 97 Nasal Cannula 2.0 07/04/16 13:35 36.9 96 18 100/64 96 Nasal Cannula 2.0 07/04/16 12:31 92 16 93/64 96 Nasal Cannula 2.0 Lab Results: Results Past 24 Hours Test 07/04/16 14:30 07/05/16 00:30 07/05/16 05:28 Range/Units Influenza Type A (RT-PCR) Neg for Influ A NEG Influenza Type B (RT-PCR) Neg for Influ B NEG Urine Color YELLOW Urine Appearance CLEAR CLEAR Urine pH 7.0 4.5-7.5 Urine Specific [employer] 1.017 1.000-1.030 Urine Protein TRACE NEG Urine Glucose (UA) NEG NEG Urine Ketones NEG NEG Urine Occult Blood NEG NEG Urine Nitrite NEG NEG Urine Bilirubin NEG NEG Urine Urobilinogen NEG NEG Urine Leukocyte Esterase NEG NEG Urine WBC (Auto) 0 0-5 /hpf Urine RBC (Auto) 0-4 0-4 /hpf Urine Hyaline Casts (Auto) 0 0-5 /lpf Urine Epithelial Cells (Auto) 0-5 0-5 /lpf Urine Bacteria (Auto) NEG NEG White Blood Count 8.81 4.8-10.8 K/uL Red Blood Count 3.51 4.7-6.1 M/uL Hemoglobin 12.4 14.0-18.0 g/dL Hematocrit 36.7 42-52 % Mean Corpuscular Volume 104.6 80-100 fL Mean Corpuscular Hemoglobin 35.3 25-34 pg Mean Corpuscular Hemoglobin Concent 33.8 32-36 g/dl Platelet Count 119 130-400 K/uL Mean Platelet Volume 10.1 7.4-10.4 fL Neutrophils (%) (Auto) 78.5 % Lymphocytes (%) (Auto) 9.9 % Monocytes (%) (Auto) 10.7 % Eosinophils (%) (Auto) 0.6 % Basophils (%) (Auto) 0.1 % Neutrophils # (Auto) 6.92 1.4-6.5 K/uL Lymphocytes # (Auto) 0.87 1.2-3.4 K/uL Monocytes # (Auto) 0.94 0.11-0.59 K/uL Eosinophils # (Auto) 0.05 0-0.5 K/uL Basophils # (Auto) 0.01 0-0.2 K/uL RDW Standard Deviation 56.4 36.4-46.3 fL RDW Coefficient of Variation 14.6 11.5-14.5 % Immature Granulocyte % (Auto) 0.2 % Immature Granulocyte # (Auto) 0.02 0.00-0.02 K/uL Sodium Level 141 136-145 mmol/L Potassium Level 3.7 3.5-5.1 mmol/L Chloride Level 108 98-107 mmol/L Carbon Dioxide Level 23 21-32 mmol/L Anion Gap 10.0 3-11 mmol/L Blood Urea Nitrogen 18 7-18 mg/dl Creatinine 1.10 0.60-1.40 mg/dl Est Creatinine Clear Calc Drug Dose 50.0 ml/min Estimated GFR () 85.9 Estimated GFR (Non- 74.1 BUN/Creatinine Ratio 16.0 10-20 Random Glucose 68 70-99 mg/dl Calcium Level 7.2 8.5-10.1 mg/dl Microbiology Results 07/04/16 MRSA DNA Surveillance Screen - Final, Complete Specimen Negative for MRSA by DNA Probe 07/04/16 Gram Stain - Final, Resulted 07/04/16 Sputum Culture, Resulted Pending 07/05/16 Urine Culture, Received Pending
[2016-07-05] MEDS ORDERED: CALCIUM GLUCONATE 10% 1,000 MG in SODIUM CHLORIDE 0.9% 50ML 50 ML IV ONE (12:00)
[2016-07-05] MEDS: LEVOFLOXACIN / D5W 750 MG in PREMIXED IN D5W 150 ML IV SCH (13:23)
--- NOTE | 2016-07-05 14:34 | Hematology/Oncology Prog Note ---
Hematology/Onc Progress Note Date of Service Jul 05, 2016. Diagnoses History of myelodysplasia Medications Medications Administered Medications (Trade) Dose Ordered Sig/Monalisa Route Start Time Stop Time Status Last Admin Dose Admin Albuterol/ Ipratropium 3 ml 3 ml NOW STAT INH 07/04/16 10:17 07/04/16 10:19 DC 07/04/16 10:33 3 ML Sodium Chloride (Nss 500ml) 500 ml @ 999 mls/hr Q31M STAT IV 07/04/16 10:17 07/04/16 10:47 DC 07/04/16 10:33 999 MLS/HR Piperacillin Sod/ Tazobactam Sod (Zosyn Iv) 4.5 gm NOW STAT IV 07/04/16 10:43 07/04/16 10:47 DC 07/04/16 10:58 4.5 GM Levofloxacin (Levaquin / D5W) 750 mg NOW ONCE IV 07/04/16 10:45 07/04/16 10:47 DC 07/04/16 11:36 750 MG Heparin Sodium (Porcine) 5000 unit 5,000 unit Q8 SQ 07/04/16 22:00 08/03/16 21:59 07/05/16 13:59 5,000 UNIT Sodium Chloride (Nss 1000ml) 1,000 ml @ 100 mls/hr Q10H IV 07/04/16 13:00 07/05/16 08:59 DC 07/05/16 00:31 100 MLS/HR Calcium/Vitamin D (Caltrate Plus Tab) 1 tab BID PO 07/04/16 21:00 08/03/16 20:59 07/05/16 08:17 1 TAB Fluconazole (Diflucan Tab) 400 mg DAILY PO 07/05/16 09:00 08/04/16 08:59 07/05/16 08:17 400 MG Prednisone (PredniSONE TAB) 5 mg MoWeFr@0900 PO 07/05/16 09:00 08/04/16 08:59 07/05/16 08:18 5 MG Tacrolimus (Prograf Cap) 0.5 mg Q2D PO 07/05/16 09:00 08/04/16 08:59 07/05/16 08:18 0.5 MG Tramadol HCl (Ultram Tab) 50 mg TID PRN PO 07/04/16 12:45 08/03/16 12:44 2/9/17 19:50 50 MG Valacyclovir HCl (Valtrex Tab) 500 mg DAILY PO 07/05/16 09:00 08/04/16 08:59 07/05/16 08:17 500 MG Atovaquone (Mepron Susp) 1,500 mg DAILY PO 07/05/16 09:00 08/04/16 08:59 07/05/16 08:17 1,500 MG Menthol (Nice Dayami) 24 dayami STK-MED ONCE .ROUTE 07/04/16 13:29 07/04/16 13:31 DC 07/04/16 15:52 24 DAYAMI Metoprolol Succinate 6.25 mg 6.25 mg BID PO 07/04/16 21:00 08/03/16 20:59 07/04/16 21:37 6.25 MG Vancomycin HCl 1100 mg/Sodium Chloride 272 ml @ 125 mls/hr TODAY@1445 ONCE IV 07/04/16 14:45 07/04/16 16:55 DC 07/04/16 15:51 125 MLS/HR Piperacillin Sod/ Tazobactam Sod 3.375 gm/Dextrose 115 ml @ 28.75 mls/ hr Q8H IV 07/04/16 16:00 07/11/16 15:59 07/05/16 08:16 28.75 MLS/HR Vancomycin HCl 750 mg/Sodium Chloride 265 ml @ 125 mls/hr Q16H IV 07/05/16 09:00 07/05/16 11:13 DC 07/05/16 09:45 125 MLS/HR Levofloxacin 750 mg/Prmx 150 ml @ 100 mls/hr QD@1100 IV 07/05/16 11:00 07/11/16 10:59 07/05/16 13:23 100 MLS/HR Calcium Gluconate/ Sodium Chloride (Calcium Gluconate 10%/Nss 50ml) 60 ml @ 240 mls/hr TODAY@1200 ONCE IV 07/05/16 12:00 07/05/16 12:14 DC 07/05/16 13:24 240 MLS/HR Subjective Sees be doing well. He really offers no new complaints. Denies any fever or chills or shortness of breath Review of Systems: Constitutional: Negative for night sweats, or fever Eyes: Negative for event change of vision ENT: Negative for epistaxis, nasal discharge, sore throat, or deafness Cardiovascular: Negative for chest pain, palpitations, dizziness, diaphoresis Respiratory: Negative for new shortness of breath,hemoptysis, or purulent cough Gastrointestinal: Negative for diarrhea, hematemesis, melena, nausea, vomiting , or dyspepsia Integumentary (skin): Negative for rash or jaundice discoloration Genitourinary: Negative for urinary frequency, hematuria, or dysuria Neurological: Negative for weakness, seizure activity, headache, or dizziness Lymphatic/Hematologic: Negative for petechiae, bleeding or new adenopathy Musculoskeletal: Negative for new joint or back pain Allergic/Immunologic: Negative for unusual rash or pruritis. Vital Signs Vital Signs Past 12 Hours Date Time Temp Pulse Resp B/P Pulse Ox O2 Delivery O2 Flow Rate FiO2 07/05/16 12:00 Room Air 07/05/16 11:14 36.4 68 20 101/65 93 07/05/16 08:12 36.6 63 20 99/58 92 Room Air 07/05/16 08:00 Room Air 07/05/16 04:00 98 Room Air 07/05/16 03:51 36.6 58 18 113/71 98 Room Air Physical Exam Constitutional: vitals are stable. Eyes: Eyes are ZAMZAM EOMI without conjuctival erythema or icterus. ENT: External examination was negative for masses. Neck: Negative for masses or palpable thyromegaly Respiratory: Lung sounds had general rhonchi throughout both lungs Cardiovascular: Heart was RRR without significant murmur, gallops aoe rubs Gastrointestinal: No palpable hepatic or splenomegaly. The abdomen was soft with normal bowel sounds. Lymphatic system: there was no palpable peripheral lymphadenopathy Musculoskeletal System: The musculoskeletal system seemed concordant with age. Skin: The skin was negative for jaundice. History of scleroderma Neurologic exam: The exam was negative for any focal findings. Deep tendon reflexes were equal and symmetrical. Psychiatric exam: Was essentially negative with normal mood and effect. Extremities: Negative for edema erythema Laboratory Last 24 Hours Test 07/05/16 00:30 07/05/16 05:28 Urine Color YELLOW Urine Appearance CLEAR Urine pH 7.0 Urine Specific [place] 1.017 Urine Protein TRACE Urine Glucose (UA) NEG Urine Ketones NEG Urine Occult Blood NEG Urine Nitrite NEG Urine Bilirubin NEG Urine Urobilinogen NEG Urine Leukocyte Esterase NEG Urine WBC (Auto) 0 /hpf Urine RBC (Auto) 0-4 /hpf Urine Hyaline Casts (Auto) 0 /lpf Urine Epithelial Cells (Auto) 0-5 /lpf Urine Bacteria (Auto) NEG White Blood Count 8.81 K/uL Red Blood Count 3.51 M/uL Hemoglobin 12.4 g/dL Hematocrit 36.7 % Mean Corpuscular Volume 104.6 fL Mean Corpuscular Hemoglobin 35.3 pg Mean Corpuscular Hemoglobin Concent 33.8 g/dl Platelet Count 119 K/uL Mean Platelet Volume 10.1 fL Neutrophils (%) (Auto) 78.5 % Lymphocytes (%) (Auto) 9.9 % Monocytes (%) (Auto) 10.7 % Eosinophils (%) (Auto) 0.6 % Basophils (%) (Auto) 0.1 % Neutrophils # (Auto) 6.92 K/uL Lymphocytes # (Auto) 0.87 K/uL Monocytes # (Auto) 0.94 K/uL Eosinophils # (Auto) 0.05 K/uL Basophils # (Auto) 0.01 K/uL RDW Standard Deviation 56.4 fL RDW Coefficient of Variation 14.6 % Immature Granulocyte % (Auto) 0.2 % Immature Granulocyte # (Auto) 0.02 K/uL Sodium Level 141 mmol/L Potassium Level 3.7 mmol/L Chloride Level 108 mmol/L Carbon Dioxide Level 23 mmol/L Anion Gap 10.0 mmol/L Blood Urea Nitrogen 18 mg/dl Creatinine 1.10 mg/dl Est Creatinine Clear Calc Drug Dose 50.0 ml/min Estimated GFR () 85.9 Estimated GFR (Non- 74.1 BUN/Creatinine Ratio 16.0 Random Glucose 68 mg/dl Calcium Level 7.2 mg/dl Assessment & Plan Sees be doing quite well. Blood counts are acceptable. From a hematology standpoint - little to offer in his care. I suspect discharge is fairly imminent. He will follow-up in our clinic with Dr.. Vigil.
[2016-07-06] VITALS (9 sets, daily range): BP systolic 115–159; BP diastolic 60–110; PULSE 55–90; TEMP 36.6–37.2; O2SAT 92–97
[2016-07-06] MEDS: PIPERACILL/TAZOBAC IV 3.375 GM in DEXTROSE 5% 100ML IV SCH ×2 (00:05→09:16)
[2016-07-06 05:52] LABS: HEMATOCRIT 37.1 % (42-52); MEAN CELL VOLUME 104.2 fL (80-100); MEAN CORPUSCULAR HEMOGLOBIN 35.4 pg (25-34); PLATELET COUNT 126 K/uL (130-400); RED BLOOD COUNT 3.56 M/uL (4.7-6.1)
[2016-07-06] MEDS: HEPARIN SOD 5000 UNIT/0.5 ML CARP SQ SCH ×3 (06:12→22:23)
[2016-07-06 06:42] LABS: BUN/CREATININE RATIO 12.7 (10-20); CALCIUM 8.4 mg/dl (8.5-10.1); CREATININE 1.1 mg/dl (0.60-1.40); POTASSIUM 3.6 mmol/L (3.5-5.1)
[2016-07-06] MEDS: METOPROLOL SUCC 25MG EXT REL TAB PO SCH ×2 (08:00→19:44)
[2016-07-06] MEDS: CALCIUM 600MG + VIT D 400 IU TAB PO SCH ×2 (08:15→19:42)
[2016-07-06] MEDS: ATOVAQUONE 750 MG/5 ML UDC PO SCH (08:16)
[2016-07-06] MEDS: FLUCONAZOLE 100 MG TAB PO SCH (08:17)
[2016-07-06] MEDS ORDERED: LEVOFLOXACIN / D5W 750 MG in PREMIXED IN D5W 150 ML IV SCH (11:00)
[2016-07-06] MEDS: LEVOFLOXACIN / D5W 750 MG in PREMIXED IN D5W 150 ML IV SCH (11:45)
--- NOTE | 2016-07-06 12:43 | Progress Note ---
Internal Med Progress Note Date of Service: Jul 06, 2016. Provider Documentation: SUBJECTIVE: Patient is feeling better but c/o cough which interfered with his sleep yesterday night. Clinically significant improvement. SOB has resolved, no chest pain Afebrile since admission, no chills, no leg edema. Off oxygen, on RA Tolerating PO well OBJECTIVE: Vital Signs-as noted below Exam: General-AAOX3, no distress Neck - No JVD, Supple Lungs-AEBE decreased, coarse BS, no wheezing, rhonchi, rales Heart-S1, S2 normal, no murmurs Abdomen-Left side - small incision from prior PEG tube +, no discharge noted. No signs of infection noted. Soft, non tender, non distended, BS present Extremities-No edema Lab data as noted below. ASSESSMENT & PLAN: Assessment and Plan : SEPSIS DUE TO PNEUMONIA, IMMUNOCOMPROMISED : Sepsis resolved. Afebrile, Leucocytosis resolved, Clinically improved. - Immunocompromised due to myelodysplastic syndrome currently on Tacrolimus, Prednisone, and atovaquone -Off oxygen. Hypoxia resolved. -IV Levofloxacin, IV Zosyn, IV Vancomycin (Day 2). S/P IV Vancomycin x 2 days as MRSA negative ----> Discontinue IV Zosyn today as has diarrhea and clinically improving. -Add Mucinex BID, Tessalon TID prn for cough -Work up- CXR- Basilar opacities - infectious process vs pulmonary edema, Cultures- negative, Urine / Blood cx- negative, Sputum cx- scant normal senthil, Lactic acid normal CHEMA - Resolved - pre renal due to poor PO intake and vomiting - S/P IVF - Monitor renal functions, avoid nephrotoxic agents when able HX MYELODYSPLASTIC SYNDROME S/P BONE MARROW TRANSPLANT - Currently on tacrolimus, Prednisone, and atovaquone - continue - BP stable, no role for stress dose steroids - Follows with Dr. Vigil - oncology consult placed- No further recommendations. Appreciate inputs. HX OF PROVOKED DVT/PE S/P IVC FILTER -On Coumadin x 2 years, off it since 07/02/16. -DVT prophylaxis DVT PROPHYLAXIS - SQ Heparin CODE STATUS - Patient is a full code as per my discussion with him. DISPO -Likely discharge home when stable- probable dc in AM Vital Signs: Date Time Temp Pulse Resp B/P Pulse Ox O2 Delivery O2 Flow Rate FiO2 07/06/16 12:23 36.7 63 18 118/74 96 Room Air 07/06/16 08:30 92 Room Air 07/06/16 07:56 36.7 68 18 118/75 92 07/06/16 04:56 36.6 90 22 115/86 96 Room Air 07/05/16 23:59 Room Air 07/05/16 22:57 36.7 61 18 152/84 92 Room Air 07/05/16 20:00 Room Air 07/05/16 19:49 36.7 69 18 112/70 91 Room Air 07/05/16 16:32 36.6 57 16 124/77 96 Room Air 07/05/16 16:00 Room Air 07/05/16 15:29 36.6 78 18 94 2.0 07/05/16 14:35 36.6 78 18 113/76 94 Room Air Lab Results: Results Past 24 Hours Test 07/06/16 05:40 Range/Units White Blood Count 9.30 4.8-10.8 K/uL Red Blood Count 3.56 4.7-6.1 M/uL Hemoglobin 12.6 14.0-18.0 g/dL Hematocrit 37.1 42-52 % Mean Corpuscular Volume 104.2 80-100 fL Mean Corpuscular Hemoglobin 35.4 25-34 pg Mean Corpuscular Hemoglobin Concent 34.0 32-36 g/dl RDW Standard Deviation 55.1 36.4-46.3 fL RDW Coefficient of Variation 14.3 11.5-14.5 % Platelet Count 126 130-400 K/uL Mean Platelet Volume 10.0 7.4-10.4 fL Sodium Level 143 136-145 mmol/L Potassium Level 3.6 3.5-5.1 mmol/L Chloride Level 110 98-107 mmol/L Carbon Dioxide Level 21 21-32 mmol/L Anion Gap 12.0 3-11 mmol/L Blood Urea Nitrogen 14 7-18 mg/dl Creatinine 1.10 0.60-1.40 mg/dl Est Creatinine Clear Calc Drug Dose 51.4 ml/min Estimated GFR () 85.9 Estimated GFR (Non- 74.1 BUN/Creatinine Ratio 12.7 10-20 Random Glucose 69 70-99 mg/dl Calcium Level 8.4 8.5-10.1 mg/dl
[2016-07-06] MEDS: BENZONATATE 100MG CAP PO PRN (19:42)
[2016-07-06] MEDS: GUAIFENESIN 600 MG TABCR PO SCH (19:42)
[2016-07-07 04:48] VITALS: BP 105/70; PULSE 69; TEMP 36.8; O2SAT 98
[2016-07-07] MEDS: HEPARIN SOD 5000 UNIT/0.5 ML CARP SQ SCH (05:53)
[2016-07-07 07:19] VITALS: BP 107/71; PULSE 62; TEMP 36.7; O2SAT 96
[2016-07-07] MEDS: METOPROLOL SUCC 25MG EXT REL TAB PO SCH (08:00)
[2016-07-07] MEDS: TACROLIMUS 0.5 MG CAP PO SCH (08:20)
[2016-07-07] MEDS: GUAIFENESIN 600 MG TABCR PO SCH (08:20)
[2016-07-07] MEDS: ATOVAQUONE 750 MG/5 ML UDC PO SCH (08:20)
[2016-07-07] MEDS: FLUCONAZOLE 100 MG TAB PO SCH (08:21)
[2016-07-07] MEDS: CALCIUM 600MG + VIT D 400 IU TAB PO SCH (08:22)
[2016-07-07 08:30] VITALS: O2SAT 96
[2016-07-07] MEDS: BENZONATATE 100MG CAP PO PRN (09:19)
[2016-07-07 11:11] VITALS: BP 114/81; PULSE 74; TEMP 36.6; O2SAT 94
[2016-07-07] MEDS: LEVOFLOXACIN / D5W 750 MG in PREMIXED IN D5W 150 ML IV SCH (11:38)
--- NOTE | 2016-07-07 14:17 | Progress Note ---
Internal Med Progress Note Date of Service: Jul 07, 2016. Provider Documentation: SUBJECTIVE: Patient is feeling better but c/o cough which has improved as well. Clinically significant improvement. SOB has resolved, no chest pain Afebrile since admission, no chills, no leg edema. Off oxygen, on RA Tolerating PO well OBJECTIVE: Vital Signs-as noted below Exam: General-AAOX3, no distress Neck - No JVD, Supple Lungs-AEBE decreased, coarse BS, no wheezing, rhonchi, rales Heart-S1, S2 normal, no murmurs Abdomen-Left side - small incision from prior PEG tube +, no discharge noted. No signs of infection noted. Soft, non tender, non distended, BS present Extremities-No edema Lab data as noted below. ASSESSMENT & PLAN: Assessment and Plan : SEPSIS DUE TO PNEUMONIA, IMMUNOCOMPROMISED : Sepsis resolved. Afebrile, Leucocytosis resolved, Clinically improved. - Immunocompromised due to myelodysplastic syndrome currently on Tacrolimus, Prednisone, and atovaquone -Off oxygen. Hypoxia resolved. -IV Levofloxacin, IV Zosyn, IV Vancomycin (Day 2). S/P IV Vancomycin x 2 days as MRSA negative ----> Discontinued IV Zosyn on day 3 as had diarrhea and clinically improving. Levofloxacin (Day 10) -On Mucinex BID, Tessalon TID prn for cough -Work up- CXR- Basilar opacities - infectious process vs pulmonary edema, Cultures- negative, Urine / Blood cx- negative, Sputum cx- scant normal senthil, Lactic acid normal CHEMA - Resolved - pre renal due to poor PO intake and vomiting - S/P IVF - Monitor renal functions, avoid nephrotoxic agents when able HX MYELODYSPLASTIC SYNDROME S/P BONE MARROW TRANSPLANT - Currently on tacrolimus, Prednisone, and atovaquone - continue - BP stable, no role for stress dose steroids - Follows with Dr. Vigil - oncology consult placed- No further recommendations. Appreciate inputs. HX OF PROVOKED DVT/PE S/P IVC FILTER -On Coumadin x 2 years, off it since 07/02/16. -DVT prophylaxis DVT PROPHYLAXIS - SQ Heparin CODE STATUS - Patient is a full code as per my discussion with him. DISPO -OK to discharge home today Vital Signs: Date Time Temp Pulse Resp B/P Pulse Ox O2 Delivery O2 Flow Rate FiO2 07/07/16 11:11 36.6 74 18 114/81 94 Room Air 07/07/16 08:30 96 Room Air 07/07/16 08:30 96 Room Air 07/07/16 07:19 36.7 62 18 107/71 96 Room Air 07/07/16 04:48 36.8 69 18 105/70 98 Room Air 07/07/16 00:35 Room Air 07/06/16 23:30 36.8 56 20 153/88 93 Room Air 07/06/16 19:43 61 16 145/90 96 Room Air 07/06/16 19:30 37.2 56 18 159/110 97 Room Air 07/06/16 16:00 95 Room Air 07/06/16 15:58 36.9 55 18 154/88 95 Room Air
[2016-07-07] MEDS ORDERED: GFNSR600 PO (14:19)
[2016-07-07] MEDS ORDERED: BENZ100C7 PO (14:19)
[2016-07-07] MEDS ORDERED: LEVO-18 PO (14:19)
--- NOTE | 2016-07-07 14:21 | Discharge Instructions ---
Discharge Instructions Admission Reason for Admission: Pneumonia Discharge Discharge Diagnosis / Problem: 1. Pneumonia 2. Sepsis secondary to pneumonia Discharge Goals Goal(s): Diagnostic testing, Therapeutic intervention Activity Recommendations Activity Limitations: resume your previous activity . Instructions / Follow-Up Instructions / Follow-Up MEDICATION CHANGES: 1, New medication: Levofloxacin 750 mg daily x 6 more days to complete course of 10 days 2. New medication: Mucinex 600 mg q 12 hours x 5 days FOLLOW UP With PCP in 7 days. We will call you for appt date/time Follow up with Hem/Onc as scheduled Current Hospital Diet Patient's current hospital diet: Regular Diet Discharge Diet Recommended Diet: Regular Diet Pending Studies Studies pending at discharge: no Medical Emergencies . Who to Call and When: Medical Emergencies: If at any time you feel your situation is an emergency, please call 911 immediately. . Non-Emergent Contact Non-Emergency issues call your: Primary Care Provider . . "Provider Documentation" section prepared by Anna Guajardo. VTE Core Measure Inpt VTE Proph given/why not?: Unfractionated heparin SQ
--- NOTE | 2016-07-07 14:24 | Discharge Summary ---
Discharge Summary Admission Date: Jul 04, 2016 at 12:23 Discharge Date: Jul 07, 2016 Discharge Disposition: Home Principal Diagnosis: 1. Pneumonia 2. Sepsis secondary to pneumonia 3. 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 Hx of DVT/PE Procedures: Tele monitoring IV antibiotics IV fluids Cultures CXR Consultations: Hem/Onc, Dr Ricardo Pending Studies/Follow-Up: . Instructions / Follow-Up MEDICATION CHANGES: 1, New medication: Levofloxacin 750 mg daily x 6 more days to complete course of 10 days 2. New medication: Mucinex 600 mg q 12 hours x 5 days FOLLOW UP With PCP in 7 days. We will call you for appt date/time Follow up with Hem/Onc as scheduled Medication Reconciliation New Medications: Levofloxacin (Levaquin) 750 Mg Tab 750 MG PO DAILY for 6 Days, #6 TAB Benzonatate (Benzonatate) 100 Mg Cap 100 MG PO TID PRN for Cough for 10 Days, #20 CAP 0 Refills Guaifenesin Ext Rel (Mucinex Ext Rel) 600 Mg Tabcr 600 MG PO Q12 for 5 Days, #10 TAB 0 Refills Continued Medications: Atovaquone (Mepron) 750 Mg/5 Ml Susp 10 ML PO DAILY Calcium/Vitamin D (Os-Herb 500 Plus D) Tab 1000 MG PO DAILY, TAB Fluconazole (Fluconazole) 100 Mg Tab 400 MG PO DAILY at noon Lorazepam (Ativan) 0.5 Mg Tab 0.5 MG PO DAILY PRN for Anxiety Metoprolol Succinate (Toprol Xl) 25 Mg Tab 6.25 MG PO BID, 5 Refills Ondansetron Hcl (Zofran) 8 Mg Tab 8 MG PO BID PRN for Nausea, TAB Oxycodone Ir (Roxicodone Ir) 5 Mg Tab 5 MG PO Q4H PRN for Pain, TAB Prednisone (Prednisone) 5 Mg Tab 5 MG PO UD TAKE 5MG FRIDAY,FRIDAY,FRIDAY Prednisone Tab (Prednisone) 10 Mg Tab 10 MG PO UD TAKE 10MG FRIDAY,FRIDAY,FRIDAY,FRIDAY Tacrolimus (Prograf) 0.5 Mg Cap 0.5 MG PO Q2D Tramadol (Ultram) 50 Mg Tab 1 TAB PO TID PRN for Pain Valacyclovir (Valtrex) 500 Mg Tab 1 TAB PO DAILY AT LUNCH for 30 Days, TAB 11 Refills Admission Information HPI (per Admitting provider): Patient seen with Dr. Oliver. 56 year old male who presents to the ER with shortness of breath, fever, and cough. Patient reports he started getting sick 3 days ago. He reports a harsh productive cough and fevers. He also has developed shortness of breath. He reports aching around his eyes. He has had a poor appetite and has had a couple episodes of vomiting. He denies hematemesis or coffee ground emesis. He denies diarrhea. Patient had a prior PEG tube and there is a small wound on his abdomen that continues to drain a small amount. He reports drainage is unchanged. He denies abdominal pain. No chest pain. He denies lightheadedness and dizziness. No syncopal events. He denies any urinary symptoms. In the ER, patient was found to be mildly tachycardic. He was placed on 2L NC and is saturating well. WBC 18K. CXR is showing bibasilar opacities. Patient was given IVF, Levaquin, and Zosyn. Physical Exam (per Admitting): please refer to Dr. Oliver's addendum for physical exam Hospital Course Assessment and Plan : SEPSIS DUE TO PNEUMONIA, IMMUNOCOMPROMISED : Sepsis resolved. Afebrile, Leucocytosis resolved, Clinically improved. - Immunocompromised due to myelodysplastic syndrome currently on Tacrolimus, Prednisone, and atovaquone -Off oxygen. Hypoxia resolved. -IV Levofloxacin, IV Zosyn, IV Vancomycin (Day 2). S/P IV Vancomycin x 2 days as MRSA negative ----> Discontinued IV Zosyn on day 3 as had diarrhea and clinically improving. Levofloxacin (Day 09/02) -On Mucinex BID, Tessalon TID prn for cough -Work up- CXR- Basilar opacities - infectious process vs pulmonary edema, Cultures- negative, Urine / Blood cx- negative, Sputum cx- scant normal senthil, Lactic acid normal CHEMA - Resolved - pre renal due to poor PO intake and vomiting - S/P IVF - Monitor renal functions, avoid nephrotoxic agents when able HX MYELODYSPLASTIC SYNDROME S/P BONE MARROW TRANSPLANT - Currently on tacrolimus, Prednisone, and atovaquone - continue - BP stable, no role for stress dose steroids - Follows with Dr. Vigil - oncology consult placed- No further recommendations. Appreciate inputs. HX OF PROVOKED DVT/PE S/P IVC FILTER -On Coumadin x 2 years, off it since 07/02/16. -DVT prophylaxis DVT PROPHYLAXIS - SQ Heparin CODE STATUS - Patient is a full code as per my discussion with him. DISPO -OK to discharge home today Total time spent on discharge = 35 minutes This includes examination of the patient, discharge planning, medication reconciliation, and communication with other providers. Discharge Instructions Discharge Goals Goal(s): Diagnostic testing, Therapeutic intervention Activity Recommendations Activity Limitations: resume your previous activity . Instructions / Follow-Up Instructions / Follow-Up MEDICATION CHANGES: 1, New medication: Levofloxacin 750 mg daily x 6 more days to complete course of 10 days 2. New medication: Mucinex 600 mg q 12 hours x 5 days FOLLOW UP With PCP in 7 days. We will call you for appt date/time Follow up with Hem/Onc as scheduled Current Hospital Diet Patient's current hospital diet: Regular Diet Discharge Diet Recommended Diet: Regular Diet Pending Studies Studies pending at discharge: no Medical Emergencies . Who to Call and When: Medical Emergencies: If at any time you feel your situation is an emergency, please call 911 immediately. . Non-Emergent Contact Non-Emergency issues call your: Primary Care Provider . . "Provider Documentation" section prepared by Anna Guajardo. VTE Core Measure Inpt VTE Proph given/why not?: Unfractionated heparin SQ
[2016-07-07 14:36] VITALS: BP 114/81; PULSE 74; TEMP 36.6; O2SAT 94
[2016-07-08 11:35] LABS: LEGIONELLA ANTIGEN NOT DETECTED
== END 2016-07-07 16:43 | disposition home or self-care (01) | DRG 871 ==
LOC: ENRESERVTM → ENRESERVDT → C.EDB 09:59 → C.2T 12:23 → C.4E 07-05 14:28
PROVIDERS: ADMIT Hospitalist; ATTEND Internal Medicine
DX: A41.9 Sepsis, unspecified organism (principal); J18.9 Pneumonia, unspecified organism; I42.9 Cardiomyopathy, unspecified; J81.1 Chronic pulmonary edema; N17.9 Acute kidney failure, unspecified; D46.9 Myelodysplastic syndrome, unspecified; F17.210 Nicotine dependence, cigarettes, uncomplicated; M81.0 Age-related osteoporosis without current pathological fracture; R09.02 Hypoxemia; R13.10 Dysphagia, unspecified; R19.7 Diarrhea, unspecified; Z79.01 Long term (current) use of anticoagulants; Z86.711 Personal history of pulmonary embolism; Z86.718 Personal history of other venous thrombosis and embolism; Z93.1 Gastrostomy status

== ENCOUNTER → 2016-10-29 | Outpatient (CLI) | payer OTHER ==
[~2016-10-29] MED LIST changes: +BENZ100C7 PO; +GFNSR600 PO; +METO-478 PO; -METO5TAB2 PO; -NUTR-1276 PEG; +ONDA8TAB6 PO; -PROC1TAB18 PO; -WARF3TAB PO; -WARF3TAB6 PO
--- NOTE | 2016-10-29 10:55 | DIAGNOSTIC IMAGING REPORT ---
GI SERIES W/O KUB CLINICAL HISTORY: LEAKAGE FROM STOMACH COMPARISON STUDY: None FLUOROSCOPY TIME: 3.3 minutes. FINDINGS: Patient initiated the swallow function well. There is considerable esophageal spasm. The gastro-esophageal junction shows irritability. Size configuration stomach are normal. There is no evidence for contrast extravasation. There is mild intermittent spasm of the duodenal sweep. There is no evidence for obstructive change. IMPRESSION: 1. No evidence for leak or extravasation. 2. Moderate esophageal irritability as well as irritability of the duodenal sweep. 3. No evidence for obstructive change Electronically signed by: Martín Whitney M.D. 10/29/2016 10:54 AM Dictated Date/Time: 10/29/2016 10:51 AM
== END | disposition home or self-care (01) ==
LOC: C.RAD 10:08
PROVIDERS: ATTEND Nurse Practitioner
DX: K94.23 Gastrostomy malfunction (principal)

== ENCOUNTER → 2016-12-24 | Outpatient (CLI) | payer OTHER ==
[~2016-12-24] MED LIST changes: -METO-478 PO; +METO1TAB31 PO
--- NOTE | 2016-12-24 17:47 | DIAGNOSTIC IMAGING REPORT ---
MRI OF THE LUMBAR SPINE WITHOUT IV CONTRAST CLINICAL HISTORY: Acute on chronic low back pain. COMPARISON STUDY: Abdominal CT dated 03/17/2013. TECHNIQUE: MRI of the lumbar spine is performed utilizing various T1 and T2-weighted sequences in the axial and sagittal planes. IV contrast was not administered for this examination. FINDINGS: Lumbar spine: Marrow signal intensity is heterogeneous. There are chronic compression deformities seen at T11, T12, L1, L2, L3, and L4. There is evidence of previous vertebroplasty at L2 and L3. No marrow signal edema is identified to suggest acuity. L5 is normal in height. There is minimal retrolisthesis at L5-S1. Alignment is otherwise maintained. No large retropulsed fragments are identified. There is straightening of the lumbar lordosis with reversal centered at L2. Small anterior osteophytes are seen throughout. The transverse and spinous processes appear intact. There is no evidence of spondylolysis. No lytic or blastic bony lesions are suggested. A Schmorl's node is seen in the superior endplate of L1. Intervertebral discs: Degenerative disc desiccation is seen throughout the lumbar spine. Advanced loss of height is seen at L5-S1. Mild loss of height is seen at the remaining lumbar levels. Spinal cord: The visualized spinal cord is normal in morphology and signal intensity. The conus medullaris terminates at the level of L1. The nerve roots of the cauda equina are normal in morphology. L1-L2: A tiny posterior disc osteophyte complex is of no consequence. The central canal and neural foramina are patent. Facet arthropathy is incidentally noted. L2-L3: There is a posterior disc osteophyte complex. This causes [id number] central canal stenosis with a minimum AP diameter of 9.5 mm. There is bilateral subarticular stenosis, right greater than left. There is probable impingement on the exiting right L2 nerve root. Facet arthropathy is of no consequence. The neural foramina are patent. L3-L4: There is a small posterior disc bulge. This causes minimal bilateral subarticular stenosis. The central canal is patent. Facet arthropathy is of no consequence. The neural foramina are clear. L4-L5: There is a small posterior disc bulge. The central canal is patent. This causes mild bilateral subarticular stenosis. Facet arthropathy is of no consequence. The neural foramina are clear. L5-S1: Facet arthropathy causes mild left greater than right neural foraminal stenosis. Minimal disc bulge is noted. The central canal is clear. Sacrum: The visualized sacrum is normal in morphology and signal intensity. Soft tissues: The paraspinous soft tissues are within normal limits. The partially-imaged retroperitoneal structures are grossly unremarkable. IMPRESSION: 1. Compression deformities are identified at all levels between T11 and L4. There is no marrow edema to suggest acuity, and there is evidence of previous vertebroplasty at L2 and L3. 2. A posterior disc osteophyte complex at L2-L3 causes [id number] acquired compromise of the central canal. Milder spondylotic change is at the remaining lumbar levels. See discussion for detailed [id number] analysis. 3. No destructive bony lesion is suggested. Dictated: 12/24/2016 5:01 PM Transcribed: 12/24/2016 5:46 PM Christi Electronically signed by: Chaparro Cuenca M.D. 12/24/2016 5:59 PM Dictated Date/Time: 12/24/2016 5:01 PM
== END | disposition home or self-care (01) ==
PROVIDERS: ATTEND Orthopaedic Surgery Orthopaedic Surgery of the Spine
DX: S32.000G Wedge compression fracture of unspecified lumbar vertebra, subsequent encounter for fracture with delayed healing (principal); X58.XXXA Exposure to other specified factors, initial encounter

== ENCOUNTER 2017-07-06 12:33 | Emergency (ER) | payer OTHER ==
[~2017-07-06] VITALS: Ht 160 cm; Wt 51.3 kg
[~2017-07-06 12:33] MED LIST changes: +METO-478 PO; -METO1TAB31 PO
[2017-07-06 12:41] VITALS: TEMP 36.8; Ht 160 cm; Wt 51.3 kg
[2017-07-06] MEDS ORDERED: SODIUM CHLORIDE 0.9% 1000ML 1,000 ML IV STA (12:56)
[2017-07-06] MEDS ORDERED: ALBUTEROL 0.083% NEBU SOLN 3 ML VIAL INH STA (12:56)
[2017-07-06 13:50] LABS: BASO % 0.2 %; BASO ABS # 0.02 K/uL (0-0.2); EOS % 0.7 %; EOS ABS # 0.08 K/uL (0-0.5); HEMATOCRIT 38.6 % (42-52); HEMOGLOBIN 12.9 g/dL (14.0-18.0); IG# 0.23 K/uL (0.00-0.02); LYMPH % 11.6 %; LYMPH ABS # 1.34 K/uL (1.2-3.4); MEAN CELL VOLUME 102.4 fL (80-100); MEAN CORPUSCULAR HEMOGLOBIN 34.2 pg (25-34); MEAN CORPUSCULAR HGB CONC 33.4 g/dl (32-36); MEAN PLATELET VOLUME 9.9 fL (7.4-10.4); MONO % 12.7 %; MONO ABS # 1.46 K/uL (0.11-0.59); NEUT % 72.8 %; NEUT ABS # 8.38 K/uL (1.4-6.5); PLATELET COUNT 210 K/uL (130-400); RED CELL DISTRIBUTION WIDTH CV 13.9 % (11.5-14.5); RED CELL DISTRIBUTION WIDTH SD 51.9 fL (36.4-46.3); WHITE BLOOD COUNT 11.51 K/uL (4.8-10.8)
--- NOTE | 2017-07-06 13:55 | DIAGNOSTIC IMAGING REPORT ---
CHEST 2 VIEWS ROUTINE CLINICAL HISTORY: EVALUATE RESPIRATORY DISTRESS.DYSPNEA dyspnea COMPARISON STUDY: 07/04/2016 FINDINGS: Patchy parenchymal infiltrative change right base. Generalized prominence of the interstitium bilaterally. No evidence for cardiac enlargement. Diaphragms smooth. IMPRESSION: Parenchymal infiltrate right midlung. The above report was generated using voice recognition software. It may contain grammatical, syntax or spelling errors. Electronically signed by: Martín Whitney M.D. 07/06/2017 1:54 PM Dictated Date/Time: 07/06/2017 1:54 PM
[2017-07-06 14:01] LABS: PTT PATIENT 27.3 SECONDS (21.0-31.0)
[2017-07-06 14:15] LABS: ALBUMIN 2.9 gm/dl (3.4-5.0); ALT/SGPT 26 U/L (12-78); AST/SGOT 24 U/L (15-37); BLOOD UREA NITROGEN 18 mg/dl (7-18); CALCIUM 7.9 mg/dl (8.5-10.1); CARBON DIOXIDE 24 mmol/L (21-32); CREATININE 1.17 mg/dl (0.60-1.40); GLUCOSE 74 mg/dl (70-99); POTASSIUM 3.7 mmol/L (3.5-5.1); SODIUM 140 mmol/L (136-145)
[2017-07-06] MEDS ORDERED: OPTIRAY 320 IV PRN (14:15)
[2017-07-06 14:17] LABS: ALKALINE PHOSPHATASE 44 U/L (45-117)
[2017-07-06] MEDS ORDERED: MELA1TAB5 PO (14:29)
[2017-07-06] MEDS ORDERED: SILD1TAB25 PO (14:29)
[2017-07-06] MEDS ORDERED: VNTHFA/IN INH (14:29)
[2017-07-06] MEDS ORDERED: BUPR-79 PO (14:29)
--- NOTE | 2017-07-06 14:50 | DIAGNOSTIC IMAGING REPORT ---
(CHEST FOR PE) ANGIO WITH CT DOSE: 205.53 mGy.cm HISTORY: Chest pain dyspnea TECHNIQUE: Multiaxial CT images of the chest were performed following the intravenous administration of contrast to evaluate the pulmonary arteries. Maximal intensity projection images were also obtained. A dose lowering technique was utilized adhering to the principles of ALARA. COMPARISON STUDY: 06/25/2014 FINDINGS: Moderate atherosclerotic change thoracic aorta with no evidence for aneurysm or dissection. The pulmonary vasculature enhances appropriately. No major filling defect is identified. lung parenchyma shows presence of a right middle lobe infiltrate. Mild peribronchial thickening is noted throughout both hemithoraces. There are minimal peripheral infiltrative changes of the lingula. Mild dependent bibasilar atelectasis. IMPRESSION: 1. Study is negative for pulmonary embolus. 2. Parenchymal infiltrates of the right middle lobe and to lesser extent lingula. 3. Mild dependent bibasilar atelectasis. The above report was generated using voice recognition software. It may contain grammatical, syntax or spelling errors. Electronically signed by: Martín Whitney M.D. 07/06/2017 2:48 PM Dictated Date/Time: 07/06/2017 2:46 PM
[2017-07-06] MEDS ORDERED: LEVO1TAB35 PO (15:11)
[2017-07-06] MEDS ORDERED: ALBINS/ INH (15:12)
[2017-07-06] MEDS ORDERED: LEVOFLOXACIN 250 MG TAB PO ONE (15:15)
[2017-07-06 15:33] VITALS: BP 115/75; PULSE 78; O2SAT 95
--- NOTE | 2017-07-06 18:34 | EMERGENCY ROOM VISIT NOTE ---
History Report prepared by Mary: José Miguel Garcia Under the Supervision of: Dr. Vadim Bradshaw D.O. First contact with patient: 12:45 Chief Complaint: COUGH Stated Complaint: CHEST CONGESTION W/DISCOMFORT, PAIN WHEN COUGHING History of Present Illness The patient is a 57 year old male who presents to the Emergency Room with complaints of a persistent cough that began about 1 week ago. He has a past medical history of COPD, PE, DVT, seizures, and myelodysplastic disorder. His blood clots occurred when he was sedentary secondary to a back fracture. He denies any history of previous IN's. He is not currently on any blood thinners. Last week, the patient began to experience flu-like symptoms including a fever, cough, and body aches and was diagnosed with influenza at [facility]. He received a course of Tamiflu which he finished. However, his symptoms persisted over this time so his PCP referred him to the ER for further work up and evaluation. He has been recently experiencing a dry cough, body aches, and chest pressure when he lies flat resulting in more coughing. He receives some relief with his inhaler. He denies any rhinorrhea, sore throat, fevers, ear pain , abdominal pain, nausea, vomiting, diarrhea, or abnormal urinary symptoms. 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 Source of History: patient Onset: 1 week ago Position: other (Respiratory System) Symptom Intensity: moderate Quality: other (Cough) Timing: other (Persistent) Associated Symptoms: + chest pain (pressure with lying flat), No fevers, No sorethroat, No nausea, No vomiting, No abdominal pain, No diarrhea, No urinary symptoms Note: He is also experiencing body aches. Review of Systems See HPI for pertinent positives & negatives. A total of 10 systems reviewed and were otherwise negative. Past Medical & Surgical Medical Problems: (1) Compression fracture (2) Emphysema (3) H/O cardiac arrest (4) H/O steroid-induced myopathy (5) History of DVT (deep vein thrombosis) (6) History of pulmonary embolus (PE) (7) History of seizure (8) HISTORY OF TOBACCO USE (9) Myelodysplastic syndrome (10) Nonischemic cardiomyopathy (11) Osteoporosis (12) PERNICIOUS ANEMIA (13) Pneumonia (14) Scleroderma Surgical Problems: (1) H/O esophagogastroduodenoscopy (2) H/O tracheostomy (3) History of bone marrow transplant (4) S/p facial reconstruction surgery (5) S/P IVC filter (6) S/P tonsillectomy Family History Diabetes mellitus FATHER FH: cancer MOTHER (lung) FH: heart disease FATHER FH: lung disease Hypertension Social History Smoking Status: Former Smoker Alcohol Use: none Housing Status: lives with family Current/Historical Medications Scheduled Albuterol Sulf (Proventil 0.083% 2.5MG/3ML), 2.5 MG INH QID Bupropion (Wellbutrin Sr), 150 MG PO DAILY Calcium/Vitamin D (Os-Herb 500 Plus D), 1,000 MG PO DAILY Levofloxacin (Levaquin), 750 MG PO QD@08 Metoprolol Succinate (Toprol Xl), 6.25 MG PO DAILY Prednisone (Prednisone), 5 MG PO UD Prednisone Tab (Prednisone), 10 MG PO UD Scheduled PRN Albuterol Hfa (Ventolin Hfa), 2-4 PUFFS INH Q6H PRN for Shortness of Breath Lorazepam (Ativan), 0.5 MG PO DAILY PRN for Anxiety Melatonin (Kp Melatonin), 3 MG PO HS PRN for Sleep Ondansetron Hcl (Zofran), 8 MG PO BID PRN for Nausea Oxycodone Ir (Roxicodone Ir), 5 MG PO Q4H PRN for Pain Sildenafil Citrate (Revatio), 20 MG PO HS PRN for . Tramadol (Ultram), 1 TAB PO TID PRN for Pain Allergies Coded Allergies: Sulfamethoxazole w/Trimethoprim (Verified Allergy, Severe, ANAPHYLAXIS; VERY SICK; HOSPITALIZED, 07/06/17) Celecoxib (Verified Allergy, Unknown, hives/rash, 07/06/17) Physical Exam Vital Signs Date Time Temp Pulse Resp B/P (MAP) Pulse Ox O2 Delivery O2 Flow Rate FiO2 07/06/17 15:33 78 18 115/75 95 Room Air 07/06/17 14:36 61 20 123/81 95 Room Air 07/06/17 13:19 59 07/06/17 12:41 36.8 68 20 137/89 97 Room Air Physical Exam GENERAL: Sitting up in bed with a dry non-productive cough, alert, cachectic appearing, no distress, non-toxic EYE EXAM: normal conjunctiva. OROPHARYNX: no exudate, no erythema, lips, buccal mucosa, and tongue normal and mucous membranes are moist NECK: supple, no nuchal rigidity, no adenopathy, non-tender, no JVD LUNGS: Faint wheezing to the bilateral bases HEART: no murmurs, S1 normal and S2 normal ABDOMEN: abdomen soft, non-tender, normo-active bowel sounds, no masses, no rebound or guarding. BACK: Back is symmetrical on inspection and there is no deformity, no midline tenderness, no CVA tenderness. SKIN: no rashes and no bruising UPPER EXTREMITIES: upper extremities are grossly normal. LOWER EXTREMITIES: No pitting edema. Calves are equal bilaterally. NEURO EXAM: Normal sensorium, cranial nerves II-XII grossly intact, normal speech, no gross weakness of arms, no gross weakness of legs. Medical Decision & Procedures ER Provider Diagnostic Interpretation: Radiology results as stated below per my review and the radiologist's interpretation: CHEST 2 VIEWS ROUTINE CLINICAL HISTORY: EVALUATE RESPIRATORY DISTRESS.DYSPNEA dyspnea COMPARISON STUDY: 07/04/2016 FINDINGS: Patchy parenchymal infiltrative change right base. Generalized prominence of the interstitium bilaterally. No evidence for cardiac enlargement. Diaphragms smooth. IMPRESSION: Parenchymal infiltrate right midlung. The above report was generated using voice recognition software. It may contain grammatical, syntax or spelling errors. Electronically signed by: Martín Whitney M.D. 07/06/2017 1:54 PM Dictated Date/Time: 07/06/2017 1:54 PM (CHEST FOR PE) ANGIO WITH CT DOSE: 205.53 mGy.cm HISTORY: Chest pain dyspnea TECHNIQUE: Multiaxial CT images of the chest were performed following the intravenous administration of contrast to evaluate the pulmonary arteries. Maximal intensity projection images were also obtained. A dose lowering technique was utilized adhering to the principles of ALARA. COMPARISON STUDY: 06/25/2014 FINDINGS: Moderate atherosclerotic change thoracic aorta with no evidence for aneurysm or dissection. The pulmonary vasculature enhances appropriately. No major filling defect is identified. lung parenchyma shows presence of a right middle lobe infiltrate. Mild peribronchial thickening is noted throughout both hemithoraces. There are minimal peripheral infiltrative changes of the lingula. Mild dependent bibasilar atelectasis. IMPRESSION: 1. Study is negative for pulmonary embolus. 2. Parenchymal infiltrates of the right middle lobe and to lesser extent lingula. 3. Mild dependent bibasilar atelectasis. The above report was generated using voice recognition software. It may contain grammatical, syntax or spelling errors. Electronically signed by: Martín Whitney M.D. 07/06/2017 2:48 PM Dictated Date/Time: 07/06/2017 2:46 PM Laboratory Results 07/06/17 13:30 Red Blood Count 3.77, Mean Corpuscular Volume 102.4, Mean Corpuscular Hemoglobin 34.2, Mean Corpuscular Hemoglobin Concent 33.4, Mean Platelet Volume 9.9, Neutrophils (%) (Auto) 72.8, Lymphocytes (%) (Auto) 11.6, Monocytes (%) ( Auto) 12.7, Eosinophils (%) (Auto) 0.7, Basophils (%) (Auto) 0.2, Neutrophils # (Auto) 8.38, Lymphocytes # (Auto) 1.34, Monocytes # (Auto) 1.46, Eosinophils # ( Auto) 0.08, Basophils # (Auto) 0.02 07/06/17 13:30 Test 07/06/17 00:00 07/06/17 13:30 Urine Color YELLOW Urine Appearance CLEAR (CLEAR) Urine pH 5.5 (4.5-7.5) Urine Specific [place] 1.020 (1.000-1.030) Urine Protein NEG (NEG) Urine Glucose (UA) NEG (NEG) Urine Ketones NEG (NEG) Urine Occult Blood NEG (NEG) Urine Nitrite NEG (NEG) Urine Bilirubin NEG (NEG) Urine Urobilinogen NEG (NEG) Urine Leukocyte Esterase NEG (NEG) White Blood Count 11.51 K/uL (4.8-10.8) Red Blood Count 3.77 M/uL (4.7-6.1) Hemoglobin 12.9 g/dL (14.0-18.0) Hematocrit 38.6 % (42-52) Mean Corpuscular Volume 102.4 fL (80-100) Mean Corpuscular Hemoglobin 34.2 pg (25-34) Mean Corpuscular Hemoglobin Concent 33.4 g/dl (32-36) Platelet Count 210 K/uL (130-400) Mean Platelet Volume 9.9 fL (7.4-10.4) Neutrophils (%) (Auto) 72.8 % Lymphocytes (%) (Auto) 11.6 % Monocytes (%) (Auto) 12.7 % Eosinophils (%) (Auto) 0.7 % Basophils (%) (Auto) 0.2 % Neutrophils # (Auto) 8.38 K/uL (1.4-6.5) Lymphocytes # (Auto) 1.34 K/uL (1.2-3.4) Monocytes # (Auto) 1.46 K/uL (0.11-0.59) Eosinophils # (Auto) 0.08 K/uL (0-0.5) Basophils # (Auto) 0.02 K/uL (0-0.2) RDW Standard Deviation 51.9 fL (36.4-46.3) RDW Coefficient of Variation 13.9 % (11.5-14.5) Immature Granulocyte % (Auto) 2.0 % Immature Granulocyte # (Auto) 0.23 K/uL (0.00-0.02) Prothrombin Time 10.6 SECONDS (9.0-12.0) Prothromb Time International Ratio 1.0 (0.9-1.1) Activated Partial Thromboplast Time 27.3 SECONDS (21.0-31.0) Partial Thromboplastin Ratio 1.1 D-Dimer 1010 ug/L FEU (0-500) Anion Gap 9.0 mmol/L (3-11) Est Creatinine Clear Calc Drug Dose 49.9 ml/min Estimated GFR () 79.2 Estimated GFR (Non- 68.3 BUN/Creatinine Ratio 15.2 (10-20) Calcium Level 7.9 mg/dl (8.5-10.1) Total Bilirubin 0.4 mg/dl (0.2-1) Aspartate Amino Transf (AST/SGOT) 24 U/L (15-37) Alanine Aminotransferase (ALT/SGPT) 26 U/L (12-78) Alkaline Phosphatase 44 U/L (45-117) Troponin I < 0.015 ng/ml (0-0.045) Total Protein 7.0 gm/dl (6.4-8.2) Albumin 2.9 gm/dl (3.4-5.0) Globulin 4.1 gm/dl (2.5-4.0) Albumin/Globulin Ratio 0.7 (0.9-2) Chemistry Specimen Hemolysis Laboratory results per my review. Medications Administered Medications (Trade) Dose Ordered Sig/Monalisa Route Start Time Stop Time Status Last Admin Dose Admin Sodium Chloride 1,000 ml @ 999 mls/hr Q1H1M STAT IV 07/06/17 12:56 07/06/17 13:56 DC 07/06/17 12:56 999 MLS/HR Albuterol Sulfate (Ventolin 0.083% 2.5MG/3ML Neb) 2.5 mg NOW STAT INH 07/06/17 12:56 07/06/17 12:58 DC 07/06/17 12:56 2.5 MG Levofloxacin (Levaquin Tab) 750 mg NOW ONCE PO 07/06/17 15:15 07/06/17 15:16 DC 07/06/17 15:32 750 MG ECG Indication: chest pain Rate (beats per minute): 55 Rhythm: sinus bradycardia Findings: T-wave inversion (III), other (No PVC) ED Course ED COURSE: Vital signs were reviewed and showed normal vitals The patients medical record was reviewed The above diagnostic studies were performed and reviewed. ED treatments and interventions as stated above. 1245: The patient was evaluated in room A4. A complete history and physical examination was performed. 1256: Ordered Albuterol Sulfate 2.5 mg INH, Sodium Chloride 1000 ml @ 999 mls/ hr IV 1515: Ordered Levofloxacin 750 mg PO 1520: Upon reevaluation, the patient is resting.I discussed my findings with the patient and he understands and agrees with the treatment plan. Based on the patients age, coexisting illnesses, exam and lab findings the decision to treat as an outpatient was made. The patient remained stable while under my care. The patient appeared well at the time of discharge. Medical Decision Differential diagnoses includes but is not limited to pneumonia, bronchitis, COPD/Asthma exacerbation, pneumothorax, pulmonary embolism, congestive heart failure, acute coronary syndrome. Patient is a 57-year-old male who presents to ER for productive cough, feeling achy and having mild shortness of breath for the past couple days. CBC was unremarkable with a faint leukocytosis. BMP all LFTs, bilirubin, troponin were all negative. UA was unremarkable. D-dimer was elevated. Chest x-ray confirms an pneumonia. CT PE was negative for any blood clots. He has had a history of extensive clots that this is secondary to surgery. This is why a d- dimer was obtained. Patient was given a dose of Levaquin and since he was feeling better and he was discharged follow-up as an outpatient with normal vitals without hypoxia or fever. There is no signs of sepsis. Discussed with Pt concerning signs and symptoms to watch out for. Pt was instructed to follow up with their PCP and discussed with the patient their option to return to the ED at anytime for persistent or worsening symptoms. The appropriate anticipatory guidance and out-patient management, including indications for return to the emergency department, were explained at length to the patient and understood. Medication Reconcilliation Current Medication List: was personally reviewed by me Blood Pressure Screening Patient's blood pressure: Normal blood pressure Blood pressure disposition: Did not require urgent referral Impression Primary Impression: Pneumonia Additional Impression: Anemia Scribe Attestation The scribe's documentation has been prepared under my direction and personally reviewed by me in its entirety. I confirm that the note above accurately reflects all work, treatment, procedures, and medical decision making performed by me. Departure Information Dispostion Home / Self-Care Prescriptions Albuterol Sulf (PROVENTIL 0.083% 2.5MG/3ML) 2.5 Mg/3 Ml Nebu 2.5 MG INH QID, #30 EA 0 Refills Prov: Vadim Bradshaw, DO 07/06/17 Levofloxacin (Levaquin) 750 Mg Tab 750 MG PO QD@08, #9 TAB Prov: Vadim Bradshaw, DO 07/06/17 Referrals Lew Morelos M.D. (PCP) Forms HOME CARE DOCUMENTATION FORM, IMPORTANT VISIT INFORMATION Patient Instructions My [facility], Pneumonia (Bacterial) - [facility] Additional Instructions Please follow up with your primary care doctor with in the next 24 hours. Any worsening of your symptoms, please return to the ED immediately. This includes any fevers greater than 100.4, worsening pain, chest pain, shortness breath, persistent nausea, vomiting, unable to eat or drink, or any other concerning signs or symptoms from your standpoint. Please take antibiotics as prescribed. Problem Qualifiers Primary Impression: Pneumonia Pneumonia type: due to unspecified organism Laterality: right Lung location : middle lobe of lung Qualified Codes: J18.1 - Lobar pneumonia, unspecified organism Additional Impression: Anemia Anemia type: unspecified type Qualified Codes: D64.9 - Anemia, unspecified
== END 2017-07-06 15:36 | disposition home or self-care (01) ==
LOC: C.EDB 12:35 → C.EDA 15:36
DX: J18.9 Pneumonia, unspecified organism (principal); D64.9 Anemia, unspecified; R79.1 Abnormal coagulation profile; J44.9 Chronic obstructive pulmonary disease, unspecified; Z86.711 Personal history of pulmonary embolism; Z86.718 Personal history of other venous thrombosis and embolism; Z87.09 Personal history of other diseases of the respiratory system; Z87.891 Personal history of nicotine dependence; Z88.2 Allergy status to sulfonamides; Z88.6 Allergy status to analgesic agent; Z79.52 Long term (current) use of systemic steroids; Z83.3 Family history of diabetes mellitus; Z80.1 Family history of malignant neoplasm of trachea, bronchus and lung; Z82.49 Family history of ischemic heart disease and other diseases of the circulatory system; Z83.6 Family history of other diseases of the respiratory system

== ENCOUNTER 2017-07-30 18:01 | Emergency (ER) | payer OTHER ==
[~2017-07-30] VITALS: Ht 160 cm; Wt 51.9 kg
[~2017-07-30 18:01] MED LIST changes: +ALBINS/ INH; -BENZ100C7 PO; +BUPR-79 PO; -DFL100 PO; -GFNSR600 PO; +LEVO1TAB35 PO; +MELA1TAB5 PO; -MPRUDL PO; +SILD1TAB25 PO; -TACR0.5C5 PO; -VALA500T60 PO; +VNTHFA/IN INH
[2017-07-30 18:08] VITALS: Ht 160 cm; Wt 51.9 kg
[2017-07-30] MEDS ORDERED: CEFAZOLIN SOD 1000MG/7.5 ML IV PUSH IV STA (18:14)
[2017-07-30] MEDS ORDERED: LIDO/EPINEPHRINE/SOD BICARB 20 ML VIAL INFIL ONE (18:15)
[2017-07-30] MEDS ORDERED: LIDOCAINE/EPINEPHRINE 1% 20 ML VIAL INFIL ONE (18:30)
[2017-07-30] MEDS ORDERED: ALBINS/ INH (18:31)
[2017-07-30 18:37] VITALS: TEMP 36.6
--- NOTE | 2017-07-30 18:38 | DIAGNOSTIC IMAGING REPORT ---
LEFT THUMB 3 VIEWS CLINICAL HISTORY: Thumb injury. FINDINGS: 3 views of the left thumb are obtained. No prior studies are available for comparison at the time of dictation. The skeletal structures are well mineralized. 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 No additional fracture is seen. Small foci of subcutaneous gas are present around the amputation site. No radiodense foreign body is seen. Mild osteoarthritic change is noted at the first carpometacarpal and metacarpophalangeal joints. 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 Electronically signed by: Chaparro Cuenca M.D. 07/30/2017 6:37 PM Dictated Date/Time: 07/30/2017 6:35 PM
[2017-07-30] MEDS ORDERED: GELATIN SPONGE 12-7MM ONE (19:11)
[2017-07-30] MEDS ORDERED: CEPH500C PO (19:34)
[2017-07-30] MEDS ORDERED: OXYCODONE IR HOME PACK PO ONE (19:45)
[2017-07-30 19:46] VITALS: BP 149/92; PULSE 61; O2SAT 95
[2017-07-30] MEDS ORDERED: ONDANSETRON INJ 2 MG/ML 2 ML VIAL IV STA (19:46)
[2017-07-30] MEDS ORDERED: MoRPHine SULFATE 4 MG/ML 1 ML CARP\\VIAL IV STA (19:46)
--- NOTE | 2017-07-31 00:12 | EMERGENCY ROOM VISIT NOTE ---
History Report prepared by Mary: Gopi Sanchez Under the Supervision of: Dr. Vadim Bradshaw D.O. First contact with patient: 18:06 Chief Complaint: LACERATION/CUT (SUT/DERMABOND) Stated Complaint: CUT LEFT THUMB OFF History of Present Illness The patient is a 57 year old male who presents to the Emergency Room after cutting the top part of his left thumb off with a circular saw. The patient states that he was using a circular saw to build shelves for his when he cut the left thumb, just prior to arrival. The top digit of the left thumb is completely gone. He has no other complaints at this time. He is not on any blood thinners. He has no tingling or numbness. He is able to completely flex his right thumb. He denies any pain at this time. 0 out of 10 as he has been applying ice. Pt denies headache, change in vision, fevers, chest pain, shortness of breath, nausea, vomiting, diarrhea, and pain with urination. Tetanus is up-to-date. Source of History: patient Onset: Just MANAGER MARKETING Position: finger(s) (Left Thumb) Quality: other (Laceration (thumb cut off)) Associated Symptoms: No chest pain, No SOB Review of Systems Pt denies headache, change in vision, fevers, chest pain, shortness of breath, nausea, vomiting, diarrhea, pain with urination, and melena. Past Medical & Surgical Medical Problems: (1) Compression fracture (2) Emphysema (3) H/O cardiac arrest (4) H/O steroid-induced myopathy (5) History of DVT (deep vein thrombosis) (6) History of pulmonary embolus (PE) (7) History of seizure (8) HISTORY OF TOBACCO USE (9) Myelodysplastic syndrome (10) Nonischemic cardiomyopathy (11) Osteoporosis (12) PERNICIOUS ANEMIA (13) Pneumonia (14) Scleroderma Surgical Problems: (1) H/O esophagogastroduodenoscopy (2) H/O tracheostomy (3) History of bone marrow transplant (4) S/p facial reconstruction surgery (5) S/P IVC filter (6) S/P tonsillectomy Family History Diabetes mellitus FATHER FH: cancer MOTHER (lung) FH: heart disease FATHER FH: lung disease Hypertension Social History Smoking Status: Former Smoker Alcohol Use: none Housing Status: lives with family Current/Historical Medications Scheduled Albuterol Sulf (Proventil 0.083% 2.5MG/3ML), 2.5 MG INH QID Bupropion (Wellbutrin Sr), 150 MG PO DAILY Calcium/Vitamin D (Os-Herb 500 Plus D), 1,000 MG PO DAILY Cephalexin Monohydrate (Keflex), 500 MG PO QID Metoprolol Succinate (Toprol Xl), 6.25 MG PO DAILY Prednisone (Prednisone), 5 MG PO UD Prednisone Tab (Prednisone), 10 MG PO UD Scheduled PRN Albuterol Hfa (Ventolin Hfa), 2-4 PUFFS INH Q6H PRN for Shortness of Breath Lorazepam (Ativan), 0.5 MG PO DAILY PRN for Anxiety Melatonin (Kp Melatonin), 3 MG PO HS PRN for Sleep Ondansetron Hcl (Zofran), 8 MG PO BID PRN for Nausea Oxycodone Ir (Roxicodone Ir), 5 MG PO Q4H PRN for Pain Sildenafil Citrate (Revatio), 20 MG PO HS PRN for . Allergies Coded Allergies: Celecoxib (Verified Allergy, Severe, hives/rash, 07/30/17) Levofloxacin (Verified Allergy, Severe, "CAUSES FLARE-UP OF SCLERODERMA", 07/30/17) Sulfamethoxazole w/Trimethoprim (Verified Allergy, Severe, ANAPHYLAXIS; VERY SICK; HOSPITALIZED, 07/30/17) Physical Exam Vital Signs Date Time Temp Pulse Resp B/P (MAP) Pulse Ox O2 Delivery O2 Flow Rate FiO2 07/30/17 19:46 61 18 149/92 95 Room Air 07/30/17 18:37 36.6 07/30/17 18:28 65 20 173/101 96 Room Air 07/30/17 18:08 18 Room Air Physical Exam GENERAL: Sitting up in bed, alert, well appearing, holding left hand in a bag of ice, well nourished, no distress, non-toxic EYE EXAM: normal conjunctiva. OROPHARYNX: no exudate, no erythema, lips, buccal mucosa, and tongue normal and mucous membranes are moist NECK: supple, no nuchal rigidity, no adenopathy, non-tender LUNGS: Clear to auscultation. Normal chest wall mechanics HEART: no murmurs, S1 normal and S2 normal ABDOMEN: abdomen soft, non-tender, normo-active bowel sounds, no masses, no rebound or guarding. BACK: Back is symmetrical on inspection and there is no deformity, no midline tenderness, no CVA tenderness. SKIN: no rashes and no bruising UPPER EXTREMITIES: There is an oblique amputation of the left distal thumb half a centimeter distal to the DIP. On the left distal thumb there is 2 mm of nail bed remaining in place. There is mild venous oozing from the medial aspect of the thumb. Gross sensation is intact. Radial pulses are 2/4 LOWER EXTREMITIES: No pitting edema. NEURO EXAM: Normal sensorium, cranial nerves II-XII grossly intact, normal speech, no gross weakness of arms, no gross weakness of legs. Medical Decision & Procedures ER Provider Diagnostic Interpretation: Radiology results as stated below per my review and the radiologist's interpretation: LEFT THUMB 3 VIEWS CLINICAL HISTORY: Thumb injury. FINDINGS: 3 views of the left thumb are obtained. No prior studies are available for comparison at the time of dictation. The skeletal structures are well mineralized. 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 No additional fracture is seen. Small foci of subcutaneous gas are present around the amputation site. No radiodense foreign body is seen. Mild osteoarthritic change is noted at the first carpometacarpal and metacarpophalangeal joints. 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 Electronically signed by: Chaparro Cuenca M.D. 07/30/2017 6:37 PM Dictated Date/Time: 07/30/2017 6:35 PM Medications Administered Medications (Trade) Dose Ordered Sig/Monalisa Route Start Time Stop Time Status Last Admin Dose Admin Cefazolin Sodium (Cefazolin 1000mg Iv Push) 2,000 mg NOW STAT IV 07/30/17 18:14 07/30/17 18:17 DC 07/30/17 18:28 2,000 MG Lidocaine/ Epinephrine (Xylocaine/Epine 1% Inj) 20 ml NOW ONCE INFIL 07/30/17 18:30 07/30/17 18:31 DC 07/30/17 19:33 20 ML Gelatin (Surgifoam Sponge 12-7MM (SMALL)) 2 ea STK-MED ONCE .ROUTE 07/30/17 19:11 07/30/17 19:12 DC 07/30/17 19:33 1 EA Oxycodone HCl (Roxicodone Immediate Rel 5MG Home Pack) 1 homepack UD ONCE PO 07/30/17 19:45 07/30/17 19:46 DC 07/30/17 19:43 1 HOMEPACK Morphine Sulfate (MoRPHine SULFATE INJ) 4 mg NOW STAT IV 07/30/17 19:46 07/30/17 19:47 DC 07/30/17 19:53 4 MG Ondansetron HCl (Zofran Inj) 4 mg NOW STAT IV 07/30/17 19:46 07/30/17 19:47 DC 07/30/17 19:52 4 MG Procedure Location: Distal Aspect Left Thumb Verbal consent was obtained after the risks and benefits were explained, including but not limited to bleeding, scarring, infection, pain, and bone/joint /nerve damage. At this time, the risks of the procedure are less than the risks of NOT performing the procedure. A time out was taken and the correct patient and site identified. The skin was prepped with betadine. The target area was anesthetized with 3 mL ml of 1% lidocaine with epinephrine at the pase of the left thumb. Copious irrigation was performed using normal saline. The skin was re-prepped with betadine and a sterile field set. Surgifoam was placed over top of the evulsion. No active bleeding was present. The wound was irrigated, dressed, and cleaned. ED Course ED COURSE: Vital signs were reviewed and showed hypertensive vitals. The patients medical record was reviewed The above diagnostic studies were performed and reviewed. ED treatments and interventions as stated above. 1807: The patient was evaluated in room A1. A complete history and physical examination was performed. 1813: Ordered Cefazolin Sodium 2000 mg Iv. 1814: Ordered Lidocain/Epinephrine 20 mL. 1902: I discussed the case with Dr. Ortega - Orthopedics. He suggests putting a dressing over the thumb. He will follow-up with the patient in the office tomorrow. 1910: Gelatin 2. 1944: Ordered Oxycodone HCl 1 homepack PO. 1945: Upon reevaluation, the patient is resting in bed.I discussed my findings with the patient and he understands and agrees with the treatment plan. Based on the patients age, coexisting illnesses, exam and lab findings the decision to treat as an outpatient was made. The patient remained stable while under my care. The patient appeared well at the time of discharge. Medical Decision Differential diagnosis: Etiologies such as fracture, dislocation, neurovascular compromise, compartment syndrome, soft tissue injury, as well as others were entertained. Patient is a 57-year-old male that presents to ER for a complete amputation of his left distal thumb. Exposed bone is in place. Mild venous oozing. X-ray show avulsion of the distal tuft. Tetanus was up-to-date. Patient was given IV antibiotics. He was also given IV morphine. He did feel significant better. Discussed with orthopedics who knows him well. We will see him in the office tomorrow. Surgifoam placed following a bulky dressing after copious irrigation. Patient was discharged with OxyIR and Keflex. Discussed with Pt concerning signs and symptoms to watch out for. Pt was instructed to follow up with their PCP and discussed with the patient their option to return to the ED at anytime for persistent or worsening symptoms. The appropriate anticipatory guidance and out-patient management, including indications for return to the emergency department, were explained at length to the patient and understood. Consults Time Called: 1857 Consulting Physician: Dr. Ortega - Orthopedic Surgery Returned Call: 1902 I discussed the case with Dr. Ortega - Orthopedics. He suggests putting a dressing over the thumb. He will follow-up with the patient in the office tomorrow. Impression Primary Impression: Avulsion fracture of thumb Scribe Attestation The scribe's documentation has been prepared under my direction and personally reviewed by me in its entirety. I confirm that the note above accurately reflects all work, treatment, procedures, and medical decision making performed by me. Departure Information Dispostion Home / Self-Care Prescriptions Cephalexin Monohydrate (Keflex) 500 Mg Cap 500 MG PO QID, #40 CAP Prov: Vadim Bradshaw, DO 07/30/17 Referrals No Doctor, Assigned (PCP) Forms HOME CARE DOCUMENTATION FORM, IMPORTANT VISIT INFORMATION Patient Instructions My [facility] Additional Instructions You had a complete avulsion of the left distal thumb. You have exposed bone. You need to see orthopedics tomorrow morning. Please call them at 8 AM. Any recurrence of bleeding please return to the ER after applying pressure for 5-10 minutes. Please take Keflex as prescribed. You were given medications during this visit that will inhibit your ability to drive, operate machinery and work. Please do NOT drive, operate machinery or work for the next 12hrs. You were also given a prescription for a narcotic. While taking this medication you should also not drive, operate machinery and or work. Problem Qualifiers Primary Impression: Avulsion fracture of thumb Encounter type: initial encounter Fracture type: open Laterality: left Qualified Codes: S62.502B - Fracture of unspecified phalanx of left thumb, initial encounter for open fracture
== END 2017-07-30 20:06 | disposition home or self-care (01) ==
LOC: C.EDB 18:02 → C.EDA 20:06
DX: S68.012A Complete traumatic metacarpophalangeal amputation of left thumb, initial encounter (principal); W31.2XXA Contact with powered woodworking and forming machines, initial encounter; Y93.H3 Activity, building and construction; J43.9 Emphysema, unspecified; M81.0 Age-related osteoporosis without current pathological fracture; M34.9 Systemic sclerosis, unspecified; Z79.52 Long term (current) use of systemic steroids; Z94.81 Bone marrow transplant status; Z86.718 Personal history of other venous thrombosis and embolism; Z86.711 Personal history of pulmonary embolism; Z86.69 Personal history of other diseases of the nervous system and sense organs; Z87.891 Personal history of nicotine dependence; Z88.6 Allergy status to analgesic agent; Z88.1 Allergy status to other antibiotic agents; Z88.2 Allergy status to sulfonamides; Z83.3 Family history of diabetes mellitus; Z80.1 Family history of malignant neoplasm of trachea, bronchus and lung; Z82.49 Family history of ischemic heart disease and other diseases of the circulatory system

== ENCOUNTER → 2017-08-06 | Day surgery (SDC) | payer OTHER ==
[2017-08-05 13:03] VITALS: Ht 160 cm; Wt 50.0 kg
[~2017-08-06] VITALS: Ht 160 cm; Wt 50.0 kg
[~2017-08-06] MED LIST changes: +ATROPINE SULFATE 0.1 MG/ML 5ML SYR IV PRN; +CEPH500C PO; +CLINDAMYCIN PHOS 150 MG/ML 2 ML VIAL ONE; +EpHEDrine SULFATE INJ 50 MG/ML AMP IV PRN; +FENTANYL CITRATE INJ 50 MCG/1 ML 2 ML VIAL IV PRN; +FENTANYL CITRATE INJ 50 MCG/1 ML 2 ML VIAL ONE; +LACTATED RINGER'S 1000ML 1,000 ML IV SCH; -LEVO1TAB35 PO; +LIDOCAINE HCL 1% 20 ML VIAL ONE; +LIDOCAINE HCL 2% 2 ML VIAL (20MG/ML) ONE; +METO5TAB2 PO; +MIDAZOLAM HCL 1 MG/ML 2ML VIAL ONE; +ONDA-170 PO; -ONDA8TAB6 PO; +PROPOFOL IV EMULSION 10 MG/ML 20 ML VIAL IV ONE; +SODIUM CHLORIDE 0.9% 1000ML 1,000 ML IV SCH; -TRAM-10 PO
--- NOTE | 2017-08-06 06:56 | History & Physical Bridge - SC ---
H&P Re-Evaluation Bridge Note: I have examined the patient, reviewed the History & Physical and in the interval since the performance of the History & Physical I have noted the following changes of clinical significance: No changes noted
--- NOTE | 2017-08-06 07:46 | [facility] Post Operative Brief Note ---
Immediate Operative Summary Operative Date Aug 06, 2017. Pre-Operative Diagnosis Left thumb parial amputation Post-Operative Diagnosis Same as pre-op Procedure(s) Performed Left Thumb Shortening Distal Phalanx, Skin Advancement Plasty (VY Plasty) Surgeon Fish Smoker Surgeon(s) None Estimated Blood Loss 1ML Findings Consistent with Post-Op Diagnosis Specimens None Drains None Anesthesia Type MAC Complication(s) none Disposition Accompanied Pt To Recover: no Disposition: Recovery Room / PACU
[2017-08-06 07:47] VITALS: TEMP 36.3
--- NOTE | 2017-08-06 07:49 | Discharge Instructions-SurgCtr ---
Discharge Instructions Date of Service Aug 06, 2017. Visit Reason for Visit: Left Thumb Partial Amputation Discharge Discharge Diagnosis / Problem: same Discharge Goals Goal(s): Improve function Activity Recommendations Activity Limitations: as noted below Exercise/Sports Limitations: until after follow-up appointment May Resume Sexual Activity: after follow-up appointment Shower/Bathe: keep incision dry no use of left hand Anesthesia . Post Anesthesia Instructions: If you have had General Anesthesia or IV Sedation: * Do not drive today. * Resume driving when surgeon permits. * Do not make important decisions or sign legal documents today. * Call surgeon for: 1. Temperature elevations greater than 101 degrees F. 2. Uncontrollable pain. 3. Excessive bleeding. 4. Persistent nausea and vomiting. 5. Medication intolerance (nausea, vomiting or rash). * For nausea and vomiting use only clear liquids such as: tea, soda, bouillon until nausea subsides, then gradually increase diet as tolerated. * If you have any concerns or questions, call your surgeon's office. If physician is unavailable and it is an emergency, call 911 or go to the nearest emergency room. . Instructions / Follow-Up Instructions / Follow-Up call [phone], see this Friday the Diet Recommendations Home Diet: no limitations Procedures Procedures Performed: Left Thumb Shortening Distal Phalanx, Skin Advancement Plasty (VY Plasty) Pending Studies Studies pending at discharge: no Medical Emergencies . Who to Call and When: Medical Emergencies: If at any time you feel your situation is an emergency, please call 911 immediately. . Non-Emergent Contact Non-Emergency issues call your: Primary Care Provider . . "Provider Documentation" section prepared by Ricky Ortega. .
--- NOTE | 2017-08-06 07:56 | Anesthesia Progress Nt - [facility] ---
Anesthesia Post Op Note Date & Time Aug 06, 2017 at 07:56 Vital Signs Pain Intensity: 0 Vital Signs Past 12 Hours Date Time Temp Pulse Resp B/P (MAP) Pulse Ox O2 Delivery O2 Flow Rate FiO2 08/06/17 07:47 36.3 69 16 132/81 (98) 100 Room Air 08/06/17 06:35 36.3 74 18 145/96 (112) 100 Room Air Notes Mental Status: alert / awake / arousable, participated in evaluation Pt Amnestic to Procedure: Yes Nausea / Vomiting: adequately controlled Pain: adequately controlled Airway Patency, RR, SpO2: stable & adequate BP & HR: stable & adequate Hydration State: stable & adequate Anesthetic Complications: no major complications apparent
--- NOTE | 2017-08-06 08:17 | OPERATIVE REPORT ---
DATE OF OPERATION: 08/06/2017 PREOPERATIVE DIAGNOSIS: Distal amputation of the left thumb. POSTOPERATIVE DIAGNOSIS: Same. PROCEDURE: Shortening of the distal phalanx, left thumb and a full volar skin advancement for coverage, left thumb. SURGEON: Ricky Ortega DO. COMPLICATIONS: Zero. BLOOD LOSS: 1 mL. DESCRIPTION OF PROCEDURE: The patient was taken to the surgical suite, IV sedation obtained, a digital block provided with Xylocaine. We exsanguinated the thumb. We cleaned up the soft tissue. I made a V into the palmar aspect of the thumb soft tissue area. I was able to incise skin only leaving the other structures intact. I was able to debride back the distal phalanx and nail as well. I was very pleased with the debridement after cleaning up the soft tissues and the advancement of skin. The skin was sutured down with 4-0 nylon suture under minimal pressure. Sterile pressure dressing provided. A tourniquet deflated. The patient returned to PACU stable. No complications. I attest to the content of the Intraoperative Record and any orders documented therein. Any exception s are noted below.
[2017-08-06 08:22] VITALS: BP 149/93; PULSE 65; O2SAT 100
--- NOTE | 2017-08-22 10:37 | EDITING REQUIRED CODING QUERY ---
CODING QUERY To promote full compliance with coding requirements relating to patient care, provider participation is requested in all cases of electrical appliance repairer uncertainty. Please assist us with the question(s) below: Coding Question(s): Diagnosis states `Distal amputation of left thumb.' Please clarify if this amputation was: ( ) Traumatic ( ) Acquired ( ) Other (Please clarify) Physician's Response(s): Thank you Pennie Vu Principal Diagnosis: "_that condition established after study, to be chiefly responsible for occasioning the admission of the patient to the hospital for care." Co-Existing Principal Diagnosis: "_when two or more diagnoses equally meet the criteria for principal diagnosis as determined by the circumstances of admission, diagnostic work up, and/or therapy provided, and the Alphabetic Index, Tabular List, or another coding guideline does not provide sequencing direction, any one of the diagnoses may be sequenced first." "When the physician has documented what appears to be a current diagnosis in the body of the record, but has not included the diagnosis in the final diagnostic statement, the physician should be asked whether the diagnosis should be added." (Source Coding [facility] 2 QTR90. p3-4)
--- NOTE | 2017-09-16 09:51 | OPERATIVE REPORT ---
DATE OF OPERATION: 09/16/2017 DATE CREATED: 08/22/2017. Coding question and clarification: The amputation was a traumatic distal amputation of the thumb. I attest to the content of the Intraoperative Record and any orders documented therein. Any exception s are noted below.
== END | disposition home or self-care (01) ==
LOC: X.SURG 06:26
PROVIDERS: ATTEND Orthopaedic Surgery Orthopaedic Surgery of the Spine
DX: S68.012A Complete traumatic metacarpophalangeal amputation of left thumb, initial encounter (principal); X58.XXXA Exposure to other specified factors, initial encounter; J44.9 Chronic obstructive pulmonary disease, unspecified; F17.200 Nicotine dependence, unspecified, uncomplicated; I10 Essential (primary) hypertension; Z86.73 Personal history of transient ischemic attack (TIA), and cerebral infarction without residual deficits; Z94.81 Bone marrow transplant status; Z98.890 Other specified postprocedural states; Z88.1 Allergy status to other antibiotic agents; Z88.2 Allergy status to sulfonamides; Z88.8 Allergy status to other drugs, medicaments and biological substances; Z82.49 Family history of ischemic heart disease and other diseases of the circulatory system; Z83.3 Family history of diabetes mellitus; Z80.1 Family history of malignant neoplasm of trachea, bronchus and lung

== ENCOUNTER → 2017-08-20 | Outpatient (CLI) | payer OTHER ==
[~2017-08-20] MED LIST changes: -ATROPINE SULFATE 0.1 MG/ML 5ML SYR IV PRN; -CLINDAMYCIN PHOS 150 MG/ML 2 ML VIAL ONE; -EpHEDrine SULFATE INJ 50 MG/ML AMP IV PRN; -FENTANYL CITRATE INJ 50 MCG/1 ML 2 ML VIAL IV PRN; -FENTANYL CITRATE INJ 50 MCG/1 ML 2 ML VIAL ONE; -LACTATED RINGER'S 1000ML 1,000 ML IV SCH; -LIDOCAINE HCL 1% 20 ML VIAL ONE; -LIDOCAINE HCL 2% 2 ML VIAL (20MG/ML) ONE; -MIDAZOLAM HCL 1 MG/ML 2ML VIAL ONE; -PROPOFOL IV EMULSION 10 MG/ML 20 ML VIAL IV ONE; -SODIUM CHLORIDE 0.9% 1000ML 1,000 ML IV SCH
--- NOTE | 2017-08-20 11:45 | DIAGNOSTIC IMAGING REPORT ---
FLUOROSCOPIC FISTULOGRAM CLINICAL HISTORY: Abdominal wall drainage status post PEG tube removal (1 year ago) COMPARISON STUDY: No previous studies for comparison. FINDINGS: 16 seconds of fluoroscopic time was utilized. 4 fluoroscopic spot images were provided for interpretation. The patient was prepped in sterile fashion. A 6 Indonesian feeding tube was introduced into the patient's left abdominal wall defect. The tube enters the stomach. 20 cc Optiray 320 was injected, which opacified the stomach. No extravasation was visualized. IMPRESSION: 1. 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 A 6 Indonesian feeding tube introduced through the abdominal wall defect entered the stomach. Electronically signed by: Ramesh Hong M.D. 08/20/2017 11:44 AM Dictated Date/Time: 08/20/2017 11:41 AM
--- NOTE | 2017-09-04 08:28 | CODING QUERY NO DIAGNOSIS ---
TREATMENT RENDERED WITHOUT A DIAGNOSIS To promote full compliance with coding requirements relating to patient care, physician participation is requested in all cases of career services coordinator uncertainty. Please assist us with providing a diagnosis/symptom for the test(s) below: A diagnosis/symptom was not documented on your Order. A valid diagnosis/symptom is required to bill all insurances. Please remember that we are unable to code a diagnosis of rule out, probable, possible, questionable, or suspected. Tests that require a diagnosis: DOS: 08/20/17 * ABSCESS/FISTULA/SINUS TRACT DIAGNOSIS: Provider Signature: Date: Thank you Anabel Herzog [employer] Once completed, please kindly fax back to [phone] For questions please call [phone]
== END | disposition home or self-care (01) ==
LOC: C.RAD 11:12
PROVIDERS: ATTEND Physician Assistant
DX: T81.89XA Other complications of procedures, not elsewhere classified, initial encounter (principal); Y84.9 Medical procedure, unspecified as the cause of abnormal reaction of the patient, or of later complication, without mention of misadventure at the time of the procedure

== ENCOUNTER 2018-01-05 05:24 | Day surgery (SDC) | payer OTHER ==
[~2018-01-05] VITALS: Ht 160 cm; Wt 51.8 kg
[~2018-01-05 05:24] MED LIST changes: -CEPH500C PO; +HYDR200T5 PO; +OXYC-90 PO; -OXYC1TAB3 PO; +PRD/1 PO; -PRED-301 PO; -PRED10TA PO
[2018-01-05 05:52] VITALS: PULSE 60; TEMP 36.6; Ht 160 cm; Wt 51.8 kg
[2018-01-05] MEDS ORDERED: CLINDAMYCIN 600 MG/54 ML D5W IV SCH (06:00)
[2018-01-05] MEDS ORDERED: LACTATED RINGER'S 1000ML 1,000 ML IV SCH (06:00)
[2018-01-05 06:21] VITALS: PULSE 100
[2018-01-05] MEDS ORDERED: BUPIVACAINE 0.5 % 5 MG/1 ML PF 10ML VIAL ONE (06:58)
[2018-01-05] MEDS ORDERED: LARYING-O-JET KIT (LTA) ONE (06:59)
[2018-01-05] MEDS ORDERED: FENTANYL CITRATE INJ 50 MCG/1 ML 2 ML VIAL ONE ×3 (06:59→09:19)
[2018-01-05] MEDS ORDERED: PROPOFOL IV EMULSION 10 MG/ML 20 ML VIAL ONE (06:59)
[2018-01-05] MEDS ORDERED: MIDAZOLAM HCL 1 MG/ML 2ML VIAL ONE (06:59)
[2018-01-05] MEDS ORDERED: LIDOCAINE HCL 2% 2 ML VIAL (20MG/ML) ONE (06:59)
[2018-01-05] MEDS ORDERED: ROCURONIUM BROMIDE 10 MG/ML 5 ML VIAL ONE (06:59)
[2018-01-05] MEDS ORDERED: DEXAMETHASONE SOD INJ 4 MG/ML VIAL ONE (07:36)
[2018-01-05] MEDS ORDERED: PHENYLEPHRINE 100MCG/ML 5ML SYR ONE (07:36)
[2018-01-05] MEDS ORDERED: ONDANSETRON INJ 2 MG/ML 2 ML VIAL ONE (07:36)
[2018-01-05] MEDS ORDERED: EpHEDrine SULFATE 50MG/5ML SYR ONE (07:36)
[2018-01-05] MEDS ORDERED: GLYCOPYRROLATE INJ 0.2 MG/ML VIAL ONE (07:36)
--- NOTE | 2018-01-05 08:33 | [facility] Post Operative Brief Note ---
Immediate Operative Summary Operative Date Jan 05, 2018. Pre-Operative Diagnosis Gastro cutaneous fistula Post-Operative Diagnosis Same Procedure(s) Performed Laparoscopic Assisted Removal Gastro Cutaneous Fistula Surgeon Dr Rubio Naphthalene Operator Surgeon(s) Anabel Jay PA-C Estimated Blood Loss 5ml Findings Consistent with Post-Op Diagnosis Specimens A. Anterior gastric wall with fistula Drains None Anesthesia Type General Complication(s) none
[2018-01-05] MEDS ORDERED: SODIUM CHLORIDE 0.9% 1000ML 1,000 ML IV SCH ×2 (08:34)
--- NOTE | 2018-01-05 08:40 | Discharge Instructions ---
Discharge Instructions Date of Service Jan 05, 2018. Admission Reason for Admission: Gastrocutaneous Fistula Discharge Discharge Diagnosis / Problem: Same Discharge Goals Goal(s): Specific goals (end fistula drainage) Activity Recommendations Activity Limitations: per Instructions/Follow-up section . Instructions / Follow-Up Instructions / Follow-Up Post-Surgical ~ Discharge Instructions Activity Recommendations: - lifting limitation: (10 pounds for 6 weeks), - exercise/sex/sports limit: (nonstrenuous for 6 weeks), - driving or machine use limit: (none for 1 week), - Shower/bathe limit: (may shower beginning tomorrow) Diet: - Clear liquids for 3 days, soft foods for another 3 days SPECIAL CARE INSTRUCTIONS: - May shower in 24 hours. Let water run over area and pat dry. - Leave steri strips on for one week. - Call the surgeon's office with any questions or concerns - - (ex. temperature higher than 101 degrees F, excessive bleeding or pain). MEDICATIONS: - Resume previous medications unless instructed otherwise by your surgeon. - Ibuprofen 600 mg every 6 hours with food (limited) - Percocet 1 every 4 hours, as needed for pain FOLLOW UP VISIT: - If not already scheduled, please call the office to schedule a two week follow-up appointment. Office number Current Hospital Diet Patient's current hospital diet: Discharge Diet Recommended Diet: N/A (See above) Procedures Procedures Performed: Laparoscopic Assisted Removal Gastro Cutaneous Fistula Pending Studies Studies pending at discharge: no Medical Emergencies . Who to Call and When: Medical Emergencies: If at any time you feel your situation is an emergency, please call 911 immediately. . Non-Emergent Contact Non-Emergency issues call your: Primary Care Provider, Surgeon Call Non-Emergent contact if: your pain is worsening, wound has increased redness, wound has increased pain . "Provider Documentation" section prepared by Martín Rubio. .
[2018-01-05] MEDS ORDERED: ONDANSETRON INJ 2 MG/ML 2 ML VIAL IV PRN ×3 (08:45→09:00)
[2018-01-05] MEDS ORDERED: OXYCODONE/ACETAMINOPHEN 5-325 TAB PO PRN ×2 (08:45)
[2018-01-05] MEDS ORDERED: MoRPHine SULFATE 4 MG/ML 1 ML CARP\\VIAL IV PRN ×2 (08:45)
[2018-01-05] MEDS ORDERED: FENTANYL CITRATE INJ 50 MCG/1 ML 2 ML VIAL IV PRN (09:00)
[2018-01-05] MEDS ORDERED: EpHEDrine SULFATE INJ 50 MG/ML AMP IV PRN (09:00)
[2018-01-05] MEDS ORDERED: ATROPINE SULFATE 0.1 MG/ML 5ML SYR IV PRN (09:00)
--- NOTE | 2018-01-05 09:31 | OPERATIVE REPORT ---
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 PROCEDURE: Laparoscopic takedown and removal of gastrocutaneous fistula. SURGEON: Martín Rubio MD BRANDS EDITOR: Anabel Jay PA-C. FINDINGS: The patient had, had a previous gastrostomy performed percutaneously. The gastrostomy tube was removed and the tract has never completely closed. There is no infection of the skin or subcutaneous tissue around the fistulous opening. The laparoscope was inserted. The anterior wall of the stomach was tented up against the anterior abdominal wall. There was no evidence of any bowel within the surgical field. TECHNIQUE: The patient was given a general anesthetic and the area was prepped and draped in the usual sterile fashion. Transverse incision was made below the umbilicus. An umbilical hernia was encountered. The sac and omentum that were protruding were reduced. The omentum was removed and the sac was removed as well. The introducer was then placed through the hernia defect. The abdomen was insufflated to a pressure of 15 mmHg with carbon dioxide. The fistulous opening was identified as with the stomach tented to the anterior abdominal wall. Some of gas was allowed to escape. An elliptical incision was then made around the fistulous opening in the skin. This was carried down through the skin and through the subcutaneous tissue where the fistula was then followed posteriorly. It was away from the fascia superiorly, which allowed me then to establish a plane between the fascia and the rectus muscle around the entire circumference leaving only peritoneal attachments. The abdomen was reinsufflated and a 5 mm introducer was placed under direct vision through a small skin incision. Peritoneal attachments of the stomach away from where it was approximating the peritoneum were divided. That allowed me to minimize the amount of stomach that was stapled. I then used an Endo-FREDY stapler and placed it across the gastric wall just below its attachment to the peritoneum. It required 2 firings of the stapler, but that divided the gastric wall. There was no evidence of leak from the staple line. There was no bleeding from the staple line. I then again turned my attention to the outside. I was able to then divide the flimsy peritoneal attachment. I then eviscerated the staple line against the abdominal wall and that allowed me to identify the remaining peritoneal attachments, which were divided. The fistula was then sent for pathology. The area on the inside on the anterior abdominal wall was inspected. There was a small amount of oozing, which was easily controlled with cautery. The anterior wall of the stomach was inspected. There was no bleeding. The gas was allowed to escape and the introducers were removed. The fistulous opening was closed with 0 PDS interrupted sutures for the fascia. The deep subcutaneous tissue was closed with running 2-0 Vicryl. The superficial subcutaneous tissue was closed with running 3-0 Vicryl and the skin was closed with 4-0 Monocryl in running subcuticular fashion. The fascia of the umbilical introducer site was closed with interrupted 0 PDS and the skin was closed with 4-0 Monocryl in a running subcuticular fashion. The skin was anesthetized with 0.5% Marcaine. The skin at the 5 mm introducer site was closed with interrupted 4-0 Monocryl. The skin was cleansed, dried, benzoin placed, Steri-Strips applied. Estimated blood loss was 5 mL. Sponge, needle, and instrument counts were correct prior to closure. The patient tolerated the surgical procedure without complication and was transferred to recovery. I attest to the content of the Intraoperative Record and any orders documented therein. Any exception s are noted below.
[2018-01-05 09:55] VITALS: BP 124/75; PULSE 67; TEMP 36; O2SAT 97
--- NOTE | 2018-01-05 10:01 | Anesthesiology Progress Note ---
Anesthesia Post Op Note Date & Time Jan 05, 2018 at 10:00 Vital Signs Pain Intensity: 4 Vital Signs Past 12 Hours Date Time Temp Pulse Resp B/P (MAP) Pulse Ox O2 Delivery O2 Flow Rate FiO2 01/05/18 09:50 36.3 69 20 119/85 94 Nasal Cannula 2 01/05/18 09:40 69 16 141/80 95 Nasal Cannula 2 01/05/18 09:30 71 18 144/83 98 Nasal Cannula 2 01/05/18 09:20 72 18 142/82 100 Nasal Cannula 2 01/05/18 09:10 74 14 146/93 100 Oxymask 10 01/05/18 09:00 73 14 145/82 100 Oxymask 10 01/05/18 08:51 36.4 88 14 154/97 98 Oxymask 10 01/05/18 06:21 100 01/05/18 05:52 36.6 60 18 Notes Mental Status: alert / awake / arousable, participated in evaluation Pt Amnestic to Procedure: Yes Nausea / Vomiting: adequately controlled Pain: adequately controlled Airway Patency, RR, SpO2: stable & adequate BP & HR: stable & adequate Hydration State: stable & adequate Anesthetic Complications: no major complications apparent
[2018-01-05 10:26] VITALS: BP 131/82; PULSE 73; O2SAT 98
[2018-01-05 10:55] VITALS: BP 141/83; PULSE 66; TEMP 36.3; O2SAT 98
== END 2018-01-05 11:05 | disposition home or self-care (01) ==
LOC: C.ACU 05:24
PROVIDERS: ATTEND Surgery
DX: K31.6 Fistula of stomach and duodenum (principal); I25.10 Atherosclerotic heart disease of native coronary artery without angina pectoris; I10 Essential (primary) hypertension; J44.9 Chronic obstructive pulmonary disease, unspecified; M34.1 CR(E)ST syndrome; D46.9 Myelodysplastic syndrome, unspecified; F17.210 Nicotine dependence, cigarettes, uncomplicated; Z86.711 Personal history of pulmonary embolism; Z88.2 Allergy status to sulfonamides; Z94.81 Bone marrow transplant status

== ENCOUNTER 2019-11-22 22:42 | Observation (INO) ==
--- OUTSIDE RECORDS SUMMARY | 2019-11-22 22:44 | External Medical Summary | Continuity of Care Document ---
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) Deep venous thrombosis of lower extremity (453.40) (I82.409) Respiratory failure (518.81) (J96.90) Neoplasm of uncertain behavior of skin (238.2) (D48.5) 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) Telangiectasia (448.9) (I78.1) History of squamous cell carcinoma in situ of skin (V13.89) (Z86.007) Allergies and Adverse Reactions Bactrim (Allergy) CeleBREX CAPS (Allergy) Sulfa Drugs (Allergy) Sulfamethoxazole-Trimethoprim TABS (Allergy) Trimethoprim TABS (Allergy) Medications predniSONE 10 MG Oral Tablet; Take 1 tablet daily Start: 02-Nov-2012 Quantity: 30 Refills: 2 Metoprolol Tartrate TABS; 6.25 mg twice daily Refills: 0 Prograf 0.5 MG Oral Capsule; TAKE 1 CAPSULE Daily at 9 AM Refills: 0 OxyIR 5 MG CAPS; 5 mg via peg every 4 hours as needed for br eakthrough pain Refills: 0 valACYclovir HCl - 500 MG Oral Tablet; 500 mg via PEG daily Refills: 0 Fluconazole TABS; 400 mg via PEG daily Refills: 0 Coumadin TABS; TAKE DIRECTED. Refills: 0 Procedures History of Tracheostomy Status: Complete d History of Bone Marrow Transplant Status : Completed Immunizations Immunizations not documented Social History - Smoking Status Ex-smoker Interventions Follow-ups/ReferralsFollow-up visit in 6 months; Done: 24 Jun 2016 Plan of Treatment Planned Observations Planned Goals not documented Results No Known Results Results not documented Encounters Appointment; Martín Lundberg M.D. 24-Jun-2016 16:20 Encounter Diagnosis: Problem not documented
--- OUTSIDE RECORDS SUMMARY | 2019-11-22 22:44 | External Medical Summary | Continuity of Care Document ---
:1960 Author Name Jesus Krause, Provider Address Unavailable Unavailable , Care Team Providers Name Role Phone Tamika Krause, Martín Unavailable [email or web address] MARAVILLA Unavailable Unavailable Unavailable Unavailable Unavailable [...] Sulfamethoxazole-Trimethoprim TABS (Allergy) Trimethoprim TABS (Allergy) Medications Metoprolol Tartrate TABS; 6.25 mg twice daily [...] 0 Coumadin TABS; TAKE DIRECTED. Refills: 0 predniSONE 10 MG Oral Tablet; Take 1 tablet daily Start: 02-Nov-2012 Quantity: 30 Refills: 2 Procedures History of Tracheostomy Status: Complete d [...]
[2019-11-23] MEDS ORDERED: ASPIRIN CHEW 324 MG PO STA (00:38)
[2019-11-23 00:50] LABS: Basophils # (auto) 0.04 K/uL (0-0.2); Basophils % (auto) 0.4 %; Eosinophils # (auto) 0.24 K/uL (0-0.5); Eosinophils % (auto) 2.3 %; Hematocrit (blood only) 41.7 % (42-52); Hemoglobin 13.5 g/dL (14.0-18.0); Immature Granulocytes # (auto) 0.02 K/uL (0.00-0.02); Immature Granulocytes % (auto) 0.2 %; Lymphocytes # (auto) 2.08 K/uL (1.2-3.4); Lymphocytes % (auto) 19.9 %; Mean Corpuscular Hemoglobin 33.7 pg (25-34); Mean Corpuscular Hgb Conc 32.4 g/dL (32-36); Mean Platelet Volume 9.9 fL (7.4-10.4); Monocytes # (auto) 1.04 K/uL (0.11-0.59); Monocytes % (auto) 9.9 %; Neutrophils # (auto) 7.04 K/uL (1.4-6.5); Neutrophils % (auto) 67.3 %; Platelet Count 235 K/uL (130-400); RDW Standard Deviation 49.3 fL (36.4-46.3); Red Blood Count 4.01 M/uL (4.7-6.1); White Blood Count 10.46 K/uL (4.8-10.8)
[2019-11-23 00:58] LABS: Albumin Level 3.5 gm/dl (3.4-5.0); BUN Creatinine Ratio 11.1 (10-20); Calcium 8.4 mg/dl (8.5-10.1); Creatinine Clr Calc Pharmacy 27.2 ml/min; Est GFR (African American) 47.3; Est GFR (Non-African American) 40.8; Potassium 3.6 mmol/L (3.5-5.1)
[2019-11-23 01:04] LABS: Partial Thromboplastin Ratio 1.1; Partial Thromboplastin Time 30.3 Seconds (21.0-31.0); Prothrombin Time 10.3 Seconds (9.0-12.0)
[2019-11-23 01:10] LABS: Albumin Globulin Ratio 0.9 (0.9-2); Bilirubin,Total 0.2 mg/dl (0.2-1); Globulin 3.8 gm/dl (2.5-4.0); Total Protein 7.3 gm/dl (6.4-8.2); Troponin I 1.76 ng/ml (0-0.045)
[2019-11-23] MEDS ORDERED: fentaNYL citrate 100 MCG/2 ML VIAL IV STA (01:19)
[2019-11-23] MEDS ORDERED: HEPARIN SODIUM/DEXTROSE 25,000 UNITS/500 ML BAG IV SCH ×2 (01:30→09:45)
[2019-11-23] MEDS ORDERED: HEPARIN SQ 5000 UNIT HEART ALERT CARP ONE (01:40)
--- NOTE | 2019-11-23 03:23 | Emergency Department Note ---
Impression & Plan Acute non-ST elevation myocardial infarction (NSTEMI) ED Provider Note NAME: SERGE ALEXANDRE AGE: 59 SEX: M ARRIVES VIA: Walk-In INFORMANT: Patient ED PROVIDER(S): Maren Singleton DO CHIEF COMPLAINT: Upper chest pain that radiates into the jaw and both arms PLAN: Disposition: Admitted to the [facility] service Condition: Stable MEDICAL DECISION MAKING: This is a 59-year-old male patient who presents to the emergency department with midsternal chest pain and EKG changes. Patient was found to have an elevated troponin with deep T wave inversions in the inferior leads consistent with an end STEMI. The patient was medicated with aspirin and heparin. The patient was given a dose of IV fentanyl for the pain. The patient has a history of heart failure with a previous cardiac arrest. He is followed routinely by Dr. Herrera. [facility] for [facility]. Triage Nursing notes reviewed and agree them. Prior medical records reviewed Vital Signs: reviewed and unremarkable Differential diagnosis: STEMI, NSTEMI, GERD, CHF ER treatment provided: IV heparin bolus, IV heparin drip, oral aspirin, IV fentanyl Diagnostics interpreted by me: ECG: Normal sinus rhythm at a rate of 71 with T wave inversions that are much more pronounced in the inferior leads in comparison to an EKG from June 2017. This is concerning for acute ischemia. There is an incomplete right bundle rima block that is also new. Repeat EKG as the patient was having chest pain at 1:10 AM: T wave inversions in the inferior leads are just slightly deeper than the previous twelve-lead done upon arrival here in the emergency department. There are no significant reciprocal changes noted.. Its normal sinus rhythm at a rate of 73. There is no ST segment elevation. Cardiac Monitoring: Normal sinus rhythm at a rate of 71. Laboratory studies: See below Imaging studies: As per my interpretation Chest x-ray: No cardiomegaly or obvious congestive heart failure HPI: 59/M arrives for evaluation of upper sternal chest discomfort. This is a 59-year-old male patient who presents to the emergency department with an episode of chest discomfort in the upper sternum that lasted for approximately 15-20 minutes around 10:30 PM this evening. The patient was at rest when it started. He had a similar episode yesterday which lasted somewhat longer. He states that the discomfort radiates from the upper sternum into his jaw and down both arms. There is no associated shortness of breath, nausea or diaphoresis. The patient does describe a past medical history of congestive heart failure with a previous cardiac arrest but no other heart attacks or stent placement. ROS: See above HPI for pertinent positives & negatives. A total of 10 systems reviewed and were otherwise negative. PAST MEDICAL HISTORY:See Below PAST SURGICAL HISTORY:See Below FAMILY HISTORY:See Below SOCIAL HISTORY:See Below HOME MEDICATIONS:See list ALLERGIES:See list VITALS:See Below PHYSICAL EXAMINATION: HEENT: Head - normocephalic and atraumatic Pupils are equal, round, and reactive to light. Extraocular eye muscles are intact, and sclera are anicteric. Nose - moist nasal mucosa without discharge. Mouth - moist buccal mucosa. Oropharynx is nonerythematous and there is no tonsillar exudate or edema noted. Neck: Supple; no JVD, nuchal rigidity, cervical lymphadenopathy. Heart: Regular rate and rhythm. There is a normal S1 and S2 with no murmurs, clicks, or gallops appreciated. Lungs: Clear to auscultation bilaterally with no wheezes, rales, or rhonchi. Abdomen: Soft, completely nontender, nondistended, with good bowel sounds. There are no palpable pulsatile masses or hepatosplenomegaly. There is no guarding, rigidity, or rebound noted. Extremities: No evidence of cyanosis, clubbing, or edema. There are easily palpable peripheral pulses. Skin: warm and dry with good turgor and no rashes. Rectal exam: Stool was black in color but was Hemoccult negative ED COURSE: Times/Reassessments: 0030: The patient was evaluated in room B3. A complete history and physical was performed. An order was placed for continuous cardiac monitoring. The patient remained in a normal sinus rhythm at a rate of 64. Previous electronic medical records were reviewed. An IV lock was initiated and labs were drawn as above. A twelve-lead EKG was obtained as described above. A portable chest x-ray was obtained and was unremarkable 0110: The patient began to complain of chest discomfort in the upper sternum again with radiation up into the jaw. A repeat EKG was obtained. The T wave inversions were only slightly deeper in the inferior leads. Patient was given a dose of IV fentanyl which did relieve his discomfort. 0125: I reviewed the results of the labs and x-ray findings with the patient and discussed the case with the [facility] hospitalist who will evaluate the patient for further care. The patient was given a bolus of IV heparin and will be started on a heparin drip. I have personally spent greater than 40 minutes of critical care time in the direct management of this patient. This includes bedside care, interpretation of diagnostic studies, and testing, discussion with consultants, patient, and family members, and other required patient management activities. This 40 minutes is in excess of all separately billable procedures. Maren Singleton, Past Med/Surg History Social History Feels Safe at Home: Yes Smoking Status: Current every day smoker Allergies Allergies Allergy/AdvReac Type Severity Reaction Status Date / Time Bactrim Allergy Severe ANAPHYLAXIS; Verified 01/05/18 05:45 VERY SICK; HOSPITALIZED celecoxib Allergy Severe hives/rash Verified 11/23/19 00:06 levofloxacin Allergy Severe "CAUSES Verified 11/23/19 00:06 FLARE-UP OF SCLERODERMA" sulfamethoxazole Allergy Severe ANAPHYLAXIS; Verified 11/23/19 00:06 VERY SICK; HOSPITALIZED trimethoprim Allergy Severe ANAPHYLAXIS; Verified 11/23/19 00:06 VERY SICK; HOSPITALIZED Home Meds Home Medications Medication Instructions Recorded Confirmed bupropion HCl 150 mg PO BID 06/26/18 11/23/19 hydroxychloroquine 200 mg PO BID 06/26/18 11/23/19 lorazepam 0.5 mg PO DAILY 06/26/18 11/23/19 metoprolol tartrate 12.5 mg FEEDING TUBE QAM 06/26/18 11/23/19 oxycodone 5 mg PO Q4 PRN 06/26/18 11/23/19 prednisone 2 mg PO QAM 06/26/18 11/23/19 amlodipine 2.5 mg PO DAILY 11/23/19 11/23/19 montelukast 10 mg PO DAILY 11/23/19 11/23/19 Results & Data (ED) Vital Signs Vital Signs - 24 hr 11/22/19 22:52 11/23/19 00:16 11/23/19 00:24 Temperature 36.7 C Temperature Source Oral Pulse Rate 77 73 73 Pulse Rate from SpO2 Sensor Respiratory Rate 20 20 18 Blood Pressure 130/72 118/69 Blood Pressure Mean 91 75 Blood Pressure Position Sitting Pulse Oximetry 96 Oxygen Delivery Method Room Air Sepsis Recent Fever Within 48 Hours No Sepsis New/Unexplained Change in Mental Status No Sepsis Action Taken by Nursing No Action Required 11/23/19 00:30 11/23/19 00:31 11/23/19 01:00 Temperature Temperature Source Pulse Rate 71 77 78 Pulse Rate from SpO2 Sensor 72 77 79 Respiratory Rate 18 19 18 Blood Pressure 109/64 118/72 Blood Pressure Mean 74 81 Blood Pressure Position Pulse Oximetry 95 98 95 Oxygen Delivery Method Sepsis Recent Fever Within 48 Hours Sepsis New/Unexplained Change in Mental Status Sepsis Action Taken by Nursing 11/23/19 01:01 11/23/19 01:30 11/23/19 01:31 Temperature Temperature Source Pulse Rate 78 76 79 Pulse Rate from SpO2 Sensor 78 78 80 Respiratory Rate 17 21 19 Blood Pressure 127/71 Blood Pressure Mean 82 Blood Pressure Position Pulse Oximetry 95 93 95 Oxygen Delivery Method Sepsis Recent Fever Within 48 Hours Sepsis New/Unexplained Change in Mental Status Sepsis Action Taken by Nursing 11/23/19 01:47 11/23/19 01:48 11/23/19 02:00 Temperature Temperature Source Pulse Rate 75 Pulse Rate from SpO2 Sensor 75 Respiratory Rate 16 Blood Pressure 121/68 Blood Pressure Mean 69 Blood Pressure Position Pulse Oximetry 95 95 Oxygen Delivery Method Room Air Room Air Sepsis Recent Fever Within 48 Hours Sepsis New/Unexplained Change in Mental Status Sepsis Action Taken by Nursing 11/23/19 02:01 11/23/19 02:30 11/23/19 02:31 Temperature Temperature Source Pulse Rate 75 75 71 Pulse Rate from SpO2 Sensor 75 75 71 Respiratory Rate 14 17 16 Blood Pressure 117/75 Blood Pressure Mean 80 Blood Pressure Position Pulse Oximetry 95 95 95 Oxygen Delivery Method Sepsis Recent Fever Within 48 Hours Sepsis New/Unexplained Change in Mental Status Sepsis Action Taken by Nursing 11/23/19 03:00 11/23/19 03:30 11/23/19 04:00 Temperature Temperature Source Pulse Rate 73 71 68 Pulse Rate from SpO2 Sensor 71 70 68 Respiratory Rate 18 17 19 Blood Pressure 114/69 129/67 110/65 Blood Pressure Mean 78 79 69 Blood Pressure Position Pulse Oximetry 92 93 93 Oxygen Delivery Method Sepsis Recent Fever Within 48 Hours Sepsis New/Unexplained Change in Mental Status Sepsis Action Taken by Nursing 11/23/19 04:30 11/23/19 05:00 Temperature Temperature Source Pulse Rate 68 64 Pulse Rate from SpO2 Sensor 70 64 Respiratory Rate 18 22 Blood Pressure 127/73 125/69 Blood Pressure Mean 79 95 Blood Pressure Position Pulse Oximetry 92 93 Oxygen Delivery Method Sepsis Recent Fever Within 48 Hours Sepsis New/Unexplained Change in Mental Status Sepsis Action Taken by Nursing Laboratory Data Result diagrams: 11/23/19 00:22 11/23/19 00:22 Lab Results 11/23/19 11/23/19 11/23/19 Range/Units 00:22 00:22 00:22 WBC 10.46 (4.8-10.8) K/uL RBC 4.01 L (4.7-6.1) M/uL Hgb 13.5 L (14.0-18.0) g/dL Hct 41.7 L (42-52) % MCV 104.0 H (80-100) fL MCH 33.7 (25-34) pg MCHC 32.4 (32-36) g/dL RDW Std Deviation 49.3 H (36.4-46.3) fL RDW Coeff of Summer 13.0 (11.5-14.5) % Plt Count 235 (130-400) K/uL MPV 9.9 (7.4-10.4) fL Immature Gran % (Auto) 0.2 % Neut % (Auto) 67.3 % Lymph % (Auto) 19.9 % [place] % (Auto) 9.9 % Eos % (Auto) 2.3 % Baso % (Auto) 0.4 % Neut # (Auto) 7.04 H (1.4-6.5) K/uL Lymph # (Auto) 2.08 (1.2-3.4) K/uL [place] # (Auto) 1.04 H (0.11-0.59) K/uL Eos # (Auto) 0.24 (0-0.5) K/uL Baso # (Auto) 0.04 (0-0.2) K/uL Immature Gran # (Auto) 0.02 (0.00-0.02) K/uL PT 10.3 (9.0-12.0) Seconds INR 1.0 (0.9-1.1) APTT 30.3 (21.0-31.0) Seconds PTT Ratio 1.1 Sodium 141 (136-145) mmol/L Potassium 3.6 (3.5-5.1) mmol/L Chloride 111 H (98-107) mmol/L Carbon Dioxide 21 (21-32) mmol/L Anion Gap 10.0 (3-11) BUN 20 H (7-18) mg/dl Creatinine 1.77 H (0.6-1.4) mg/dl Est Cr Clr Drug Dosing 27.2 ml/min Est GFR ( Amer) 47.3 Est GFR (Non-Af Amer) 40.8 BUN/Creatinine Ratio 11.1 (10-20) Glucose 95 (70-99) mg/dl Calcium 8.4 L (8.5-10.1) mg/dl Total Bilirubin 0.2 (0.2-1) mg/dl AST 35 (15-37) U/L ALT 26 (12-78) U/L Alkaline Phosphatase 48 (45-117) U/L Troponin I 1.760 H* (0-0.045) ng/ml Total Protein 7.3 (6.4-8.2) gm/dl Albumin 3.5 (3.4-5.0) gm/dl Globulin 3.8 (2.5-4.0) gm/dl Albumin/Globulin Ratio 0.9 (0.9-2) Lipase 133 (73-393) U/L Administered Medications Heparin Sodium/Dextrose (Heparin Sodium/Dextrose) 25,000 units in 500 mls @ 0.02 mls/hr IV .Q24H [facility]; Protocol Stop: 12/23/19 01:29 Last Admin: 11/23/19 01:44 Dose: 800 units/hr, 16 mls/hr Documented by: [id number] Cosigned by: [id number] Discontinued Medications Aspirin (Aspirin) 324 mg PO NOW STA Stop: 11/23/19 00:39 Last Admin: 11/23/19 00:46 Dose: 324 mg Documented by: [id number] Fentanyl Citrate (Fentanyl Citrate) 50 mcg IV NOW STA Stop: 11/23/19 01:20 Last Admin: 11/23/19 01:43 Dose: 50 mcg Documented by: [id number] Heparin Sodium (Beef Lung) (Heparin Sod 5000u Heart Alert) Confirm Administered Dose 5,000 units .ROUTE .[facility] Stop: 11/23/19 01:41 Last Admin: 11/23/19 01:44 Dose: 3,000 units Documented by: [id number] Cosigned by: [id number] Heparin Sodium/Dextrose () 1 ea IV NOW STA; Protocol Stop: 11/23/19 01:22 Last Admin: 11/23/19 01:44 Dose: 1 ea Documented by: [id number] Discharge Plan Visit Data Chief Complaint: Chest Pain Stated Complaint: CHEST PAIN, CARDIAC HISTORY ED Provider: Maren Singleton Discharge Problem: Acute non-ST elevation myocardial infarction (NSTEMI) Forms Stand Alone Forms: [facility] Prescriptions Prescriptions: No Action bupropion HCl 150 mg tablet sustained-release 12 hr 150 mg PO BID RF: 0 lorazepam 0.5 mg tablet 0.5 mg PO DAILY RF: 0 prednisone 1 mg tablet 2 mg PO QAM RF: 0 hydroxychloroquine 200 mg tablet 200 mg PO BID RF: 0 oxycodone 5 mg tablet 5 mg PO Q4 PRN (Reason: Pain) RF: 0 metoprolol tartrate 25 mg tablet 25 mg PO BID RF: 0 amlodipine 2.5 mg tablet 2.5 mg PO DAILY RF: 0 montelukast 10 mg tablet 10 mg PO DAILY RF: 0
[2019-11-23] MEDS ORDERED: SODIUM CHLORIDE 0.9% 1000ML 1,000 ML IV SCH ×2 (06:45→14:30)
[2019-11-23] MEDS ORDERED: ACETAMINOPHEN 325 MG TAB PO PRN (06:45)
[2019-11-23] MEDS ORDERED: OXYCODONE HCL IR 5 MG TAB (IMMEDIATE RELEASE) PO PRN (06:45)
[2019-11-23] MEDS ORDERED: ONDANSETRON INJ 2 MG/ML 2 ML VIAL IV PRN (06:45)
[2019-11-23 07:13] LABS: Basophils # (auto) 0.02 K/uL (0-0.2); Basophils % (auto) 0.2 %; Eosinophils # (auto) 0.28 K/uL (0-0.5); Eosinophils % (auto) 3.5 %; Hematocrit (blood only) 38.2 % (42-52); Hemoglobin 12.9 g/dL (14.0-18.0); Immature Granulocytes # (auto) 0.02 K/uL (0.00-0.02); Immature Granulocytes % (auto) 0.2 %; Lymphocytes # (auto) 2.29 K/uL (1.2-3.4); Lymphocytes % (auto) 28.3 %; Mean Corpuscular Hemoglobin 34.4 pg (25-34); Mean Corpuscular Hgb Conc 33.8 g/dL (32-36); Mean Corpuscular Volume 101.9 fL (80-100); Monocytes # (auto) 0.91 K/uL (0.11-0.59); Monocytes % (auto) 11.3 %; Neutrophils # (auto) 4.56 K/uL (1.4-6.5); Neutrophils % (auto) 56.5 %; Platelet Count 173 K/uL (130-400); RDW Coefficient of Variation 12.8 % (11.5-14.5); Red Blood Count 3.75 M/uL (4.7-6.1); White Blood Count 8.08 K/uL (4.8-10.8)
[2019-11-23] MEDS: NITROGLYCERIN SL 0.4 MG/TAB TAB SL PRN ×4 (07:25→15:00)
--- NOTE | 2019-11-23 07:32 | XRay Report ---
XR chest 1V portable CLINICAL HISTORY: Chest Pain dyspnea COMPARISON STUDY: 08/01/2016 FINDINGS: Interstitial changes both lung bases. Upper lungs are considered clear. No focal infiltrati ve change. IMPRESSION: Interstitial phase of early congestive failure. ACT 112: Negative or not required by law. The above report was generated using voice recognition software. It may contain grammatical, syntax or spelling errors. Electronically signed by: Martín Whitney M.D. 11/23/2019 7:30 AM
[2019-11-23 07:44] LABS: BUN Creatinine Ratio 14.2 (10-20); Calcium 8.1 mg/dl (8.5-10.1); Creatinine Clr Calc Pharmacy 40.2 ml/min; Est GFR (African American) 61.3; Est GFR (Non-African American) 52.9; Potassium 3.9 mmol/L (3.5-5.1)
[2019-11-23] MEDS: LORazepam 0.5 MG TAB PO SCH (07:49)
[2019-11-23] MEDS: MONTELUKAST SODIUM 10 MG TABLET PO SCH (07:50)
[2019-11-23] MEDS: predniSONE 1 MG TAB PO SCH (07:54)
[2019-11-23] MEDS: ASPIRIN 81 MG ECTAB PO SCH (07:54)
[2019-11-23] MEDS: BuPROPion SR 150 MG TABCR PO SCH ×2 (07:54→20:41)
[2019-11-23] MEDS: AMLODIPINE BESYLATE 5 MG TAB PO SCH (07:55)
[2019-11-23 07:56] LABS: Phosphorus 2.7 mg/dl (2.5-4.9); Thyroid Stimulating Hormone 2.7 uIu/ml (0.300-4.500)
[2019-11-23] MEDS: METOPROLOL TARTRATE 25 MG TAB PO SCH ×2 (07:57→20:41)
--- NOTE | 2019-11-23 08:28 | Electrocardiogram Report ---
Test Reason : Blood Pressure : / mmHG Vent. Rate : 073 BPM Atrial Rate : 073 BPM P-R Int : 152 ms QRS Dur : 114 ms QT Int : 436 ms P-R-T Axes : 069 048 -51 degrees QTc Int : 480 ms Normal sinus rhythm Incomplete right bundle branch block T wave abnormality, consider inferior ischemia Prolonged QT Abnormal ECG When compared with ECG of 22-NOV-2019 22:52, T-wave inversion in Inferior leads now present Confirmed by Ajith Jeffrey ([id number]) on 11/23/2019 8:27:49 AM Referred By: REFERRED SELF Confirmed By:Ajith Jeffrey
[2019-11-23 08:47] LABS: Partial Thromboplastin Ratio 3.8
[2019-11-23 08:50] LABS: Partial Thromboplastin Time 104.8 Seconds (21.0-31.0)
--- NOTE | 2019-11-23 09:39 | Hospitalist Progress Note ---
Date of Service November 23, 2019 Assessment & Plan (1) Acute non-ST elevation myocardial infarction (NSTEMI): -This is a 59-year-old male who presents with chest pain and found to have elevated troponin. Patient reported prior to coming hospital he had 1 hour chest pain that lasted to 10:30 PM. -as of 11/23/2019 AN: Patient has been on IV heparin drip for NSTEMI. Patient is awaiting cardiac catheterization by cardiology service. Acute kidney injury -Baseline creatinine around 1.1-1.25 and admission creatinine 1.7 -IV fluids were given, monitor renal function after cardiac cath Hypertension -on Toprol-XL and amlodipine History of myelodysplastic syndrome and pernicious anemia. 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 - History of cardiac arrest with prolonged hospital secondary to PE as per the patient. scleroderma and CREST syndrome -on Plaquenil and prednisone. -Follows with a Dermatology clinic as outpatient DVT prophylaxis, on IV heparin. Admission and Anticipated Discharge Date Admission Date: November 23, 2019 Subjective Patient reported prior to coming hospital he had 1 hour chest pain that lasted t o 10:30 PM. Patient has been on IV heparin drip for NSTEMI. Patient is awaiting cardiac catheterization by cardiology service. currently at the bedside. he is comfortable. breathing on room air, no shortness of breath. denies chest pain. no palpitations no nausea. no dizziness. no headache. Review of Systems Review of Systems: All systems reviewed & are unremarkable except as noted in Subjective Physical Exam Constitutional: comfortable Eyes: PERRL, conjunctivae normal, anicteric sclerae EOM intact bilaterally Neck: trachea midline, no thyromegaly normal visual inspection Respiratory: normal respiratory effort, lungs clear to auscultation Cardiovascular: Rate/Rhythm: regular rate Gastrointestinal (Abdomen): normal bowel sounds, soft, nontender, no hepatosplenomegaly Musculoskeletal: Head/Neck/Chest: normocephalic and head atraumatic Neurologic: PERRL, EOMI, accommodation nl, no face palsy, no dysarthria CN's II-XI intact bilaterally Psychiatric: A+Ox3, euthymic affect Results & Data Results & Data ([facility]) Vital Signs (Past 12 Hours) Vital Signs Temp Pulse Pulse Resp BP BP BP 11/23/19 07:52 36.8 C 68 19 142/83 H 11/23/19 06:45 36.5 C 66 16 135/81 11/23/19 06:00 66 18 120/61 11/23/19 05:30 61 13 109/80 11/23/19 05:00 64 22 125/69 11/23/19 04:30 68 18 127/73 11/23/19 04:00 68 19 110/65 11/23/19 03:30 71 17 129/67 11/23/19 03:00 73 18 114/69 11/23/19 02:31 71 16 11/23/19 02:30 75 17 117/75 11/23/19 02:01 75 14 11/23/19 02:00 75 16 121/68 11/23/19 01:47 11/23/19 01:31 79 19 11/23/19 01:30 76 21 127/71 11/23/19 01:01 78 17 11/23/19 01:00 78 18 118/72 11/23/19 00:31 77 19 11/23/19 00:30 71 18 109/64 11/23/19 00:24 73 18 11/23/19 00:16 73 20 118/69 11/22/19 22:52 36.7 C 77 20 130/72 Pulse Ox 11/23/19 07:52 95 11/23/19 06:45 97 11/23/19 06:00 97 11/23/19 05:30 98 11/23/19 05:00 93 11/23/19 04:30 92 11/23/19 04:00 93 11/23/19 03:30 93 11/23/19 03:00 92 11/23/19 02:31 95 11/23/19 02:30 95 11/23/19 02:01 95 11/23/19 02:00 95 11/23/19 01:47 95 11/23/19 01:31 95 11/23/19 01:30 93 11/23/19 01:01 95 11/23/19 01:00 95 11/23/19 00:31 98 11/23/19 00:30 95 11/23/19 00:24 11/23/19 00:16 11/22/19 22:52 96
--- NOTE | 2019-11-23 09:39 | History and Physical Report ---
DATE OF ADMISSION: 11/23/2019 CHIEF COMPLAINT: Chest pain. HISTORY OF PRESENT ILLNESS: This is a 59-year-old male with past medical history significant for DVT/PE, cardiac arrest secondary to PE and prolonged stay in the ICU with PEG tube placement at that time, history of myelodysplastic disease, anemia with myelodysplastic syndrome, CREST syndrome, scleroderma, anxiety state, hx of nonischemic cardiomyopathy, ARDS, history of hypernatremia and hyperkalemia, EF was 20% in 2013 but improved to 54% as in November 2016, presents with chest pain. The patient says last night around 9:00, he noticed a burning kind of sensation going to his throat and is radiating to his both the hands, moderate in severity, which prompted him to come to the ER. In the ER, he received fentanyl, and aspirin and the pain improved to mild discomfort. ECG shows some T-wave inversions in inferior leads and troponin was 1.7. He was started on heparin drip. Currently resting comfortably and hemodynamically stable. The patient denies any headache. No blurred vision, no earache, no runny nose, no sore throat, no dysphagia, no loss of sense of smell or taste. Denies any shortness of breath. No sweating, no shortness of breath, no cough, no fevers, no abdominal pain. Normal bowel and bladder movements. No blood in the stools, no hematuria. No swelling in the legs, no rash. LABORATORY DATA: WBC 10.4, hemoglobin 13.5, hematocrit 41.7, platelets 235. PT 10.3, INR 1, APTT 30.3. Sodium 141, potassium 3.6, chloride 111, bicarb 21, BUN 20, creatinine 1.7, serum glucose 95, calcium 8.4. Total bilirubin 0.2, AST 35, ALT 26, alkaline phosphatase 48. Troponin I 1.7. Lipase 133. Chest x-ray: No acute findings. EKG: Normal sinus rhythm with rate of 73, incomplete right bundle branch block, T-wave inversions in inferior leads, no significant change from previous EKG. ASSESSMENT AND PLAN: This is a 59-year-old male who presents with chest pain and found to have elevated troponin. 1. Non-ST elevated MD with troponin of 1.7. EKG, T-wave inversions in inferior leads, but seems to be old. Currently resting comfortably. Received full dose aspirin and fentanyl in the ER. We will follow serial cardiac enzymes, echocardiogram. Keep him n.p.o. Continue IV heparin. Continue his home metoprolol. Follow the fasting lipid profile. Consult Cardiology for further recommendations. 2. CHEMA. Baseline creatinine around 1.1-1.25, present creatinine 1.7, getting gentle fluids. Avoiding nephrotoxin agents. Follow the repeat labs. 3. History of HTN. Continue Toprol-XL and amlodipine. Monitor his blood pressure. 4. History of DVT/PE, status post IVC filter. 5. History of cardiac arrest with prolonged hospital secondary to PE as per the patient. 6. History of scleroderma and CREST syndrome, on Plaquenil and prednisone. Followup with Rheumatology. 7. History of myelodysplastic syndrome and anemia. Hemoglobin is 13.5. 8. DVT prophylaxis, on IV heparin. DISPOSITION: Closely monitor in tele floor. Level 1 full code. Expect to discharge home and follow with family doctor. MONALISA
[2019-11-23] MEDS ORDERED: Heparin IV Standard *NO* Bolus IV SCH (09:50)
[2019-11-23] MEDS: HYDROXYCHLOROQUINE SULFATE 200 MG TAB PO SCH ×2 (10:29→20:41)
--- NOTE | 2019-11-23 10:45 | Cardiology Consultation ---
Date of Consultation November 23, 2019 Assessment & Plan (1) Acute non-ST elevation myocardial infarction (NSTEMI): Patient has a history of severe left ventricular systolic dysfunction, nonischemic cardiomyopathy, diagnosed in 2013 shortly after his bone marrow transplant. Cardiac catheterization performed 04/2014 revealed angiographically normal coronary arteries. He then suffered from severe low back pain, and while hospitalized in June, for planned kyphoplasty, before the procedure could be performed, he suffered a CODE BLUE event with sustained VT, and pulseless electrical activity. Successful return of circulation was achieved with ACLS and he was intubated and placed on the ventilator. Severe biventricular systolic dysfunction noted at that time, and he was diagnosed with significant DVT and pulmonary emboli. It was felt that his CODE BLUE event was due to the venous thromboembolic disease in the setting of severe left ventricular systolic dysfunction, and stasis from his back pain. [place] [facility] [place], tracheostomy and PEG tube were both subsequently removed, and he subsequently improved, and over the years, his left ventricular systolic dysfunction improved despite being on relatively little cardiac therapy as his medications have been limited due to low blood pressure. He presents today with around 3 days of waxing and waning indigestion that his transition into upper chest discomfort jaw discomfort radiating to his arms, suggestive of angina. He does have a chronic wall motion abnormality with akinesis of the basal inferior basal inferolateral segments that has been noted on serial ech ocardiogram studies and since his prolonged ICU stay in 2014, these are unchanged on the present echocardiogram performed this morning with LVEF of 55% current echocardiogram, stable compared to July. Continue aspirin, low-dose metoprolol, and unfractionated heparin. Plans will be made for cardiac catheterization today.Start atorvastatin 20 mg . History of Present Illness Attending Physician: Partha Tavarez MD History of Present Illness Mr Garcia is a 59 year old male seen in cardiology consultation per the request of Dr Ames for the evaluation of chest pain / NSTEMI. The patient is well-known to the undersigned's have followed him as an outpatient since 2013. He had most recently been seen by the undersigned in routine cardiology follow-up in June, at which time stable cardiac signs and symptoms were noted. He states that 3 days ago on Friday, at 3 AM, he woke up with indigestion that lasted 1.5 to 2 hours, it was partially improved with Pepto-Bismol and then went away on its own. On Friday he had a brief episode of indigestion, and this time he felt symptoms in his jaw as well, once again the symptoms went away on their own. Last evening, 11/22/19, the patient experienced onset of discomfort in his upper chest that radiated to his neck, jaw, teeth, and down both of his arms, this occurred at 10 PM. His symptoms persisted, prompting him to seek care in the emergency room, where his initial set of vital signs were taken on 11/22/2019 at 2252. Patient had relative relief of his chest discomfort overnight. He was admitted to the PCU, and at 8 AM he had recurrence of his discomfort, which is since been relieved with a single dose of sublingual nitroglycerin, and at the time of my assessment at just after 9 AM, the patient was completely asymptomatic. Telemetry reveals sinus bradycardia in the range of 50 to 60 bpm. Past Medial / Cardiac History: 1. Myelodysplastic disorder with bone marrow transplant, performed, circa, 2013, [facility] 2. Nonischemic cardiomyopathy with severe left ventricular systolic dysfunction, LVEF 20% at the time of diagnosis, late 2013, early 2014. Left ventricular systolic dysfunction improved with medical therapy, LVEF 50 to 54%, outpatient echo 08/04/2019 3. Normal coronary arteries by cardiac catheterization April, 4. Status post sustained ventricular tachycardia, then symptomatic bradycardia, pulseless electrical activity arrest in the setting of severe left ventricular systolic dysfunction, hyperkalemia, DVT, pulmonary embolism 5. Status post bilateral DVT for which patient underwent inferior vena cava filter and subsequently completed a course of anticoagulation 6. Scleroderma, normal RV systolic dysfunction and pulmonary pressures on serial echocardiograms 7. Chronic esophageal dysmotility attributed to his scleroderma 8. Acute kidney injury after his CODE BLUE event in 2014, required intermittent dialysis for renal insufficiency and hyperkalemia Allergies Allergy/AdvReac Type Severity Reaction Status Date / Time Bactrim Allergy Severe ANAPHYLAXIS; Verified 01/05/18 05:45 VERY SICK; HOSPITALIZED celecoxib Allergy Severe hives/rash Verified 11/23/19 00:06 levofloxacin Allergy Severe "CAUSES Verified 11/23/19 00:06 FLARE-UP OF SCLERODERMA" sulfamethoxazole Allergy Severe ANAPHYLAXIS; Verified 11/23/19 00:06 VERY SICK; HOSPITALIZED trimethoprim Allergy Severe ANAPHYLAXIS; Verified 11/23/19 00:06 VERY SICK; HOSPITALIZED Home Medications Home Medications Medication Instructions Recorded Confirmed Type bupropion HCl 150 mg PO BID 06/26/18 11/23/19 History hydroxychloroquine 200 mg PO BID 06/26/18 11/23/19 History lorazepam 0.5 mg PO DAILY 06/26/18 11/23/19 History metoprolol tartrate 25 mg PO BID 06/26/18 11/23/19 History oxycodone 5 mg PO Q4 PRN 06/26/18 11/23/19 History prednisone 2 mg PO QAM 06/26/18 11/23/19 History amlodipine 2.5 mg PO DAILY 11/23/19 11/23/19 History montelukast 10 mg PO DAILY 11/23/19 11/23/19 History Patient History Medical History Emphysema (Chronic) H/O cardiac arrest (Resolved) "S/p sustained VT, then symptomatic bradycardia, PEA arrest , in setting of severe LV systolic dysfunction, Hyperkalemia, DVT / PE" H/O steroid-induced myopathy (Chronic) History of DVT (deep vein thrombosis) (Chronic) History of pulmonary embolus (PE) (Chronic) History of seizure (Chronic) Myelodysplastic syndrome (Chronic 07/30/12) "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" Nonischemic cardiomyopathy (Chronic) "hx of EF < 20%, improved on echo 12/2015 to 61%" Osteoporosis (Chronic) Pneumonia Surgical History H/O esophagogastroduodenoscopy (Chronic) H/O tracheostomy (Chronic) "s/p removal" History of bone marrow transplant (Resolved) S/P IVC filter (Chronic) S/P tonsillectomy (Resolved 07/30/12) Social History Preferred Language: [place] Communication Ability: Effective Intellectual Property Legal Assistant Required: No Beliefs That Will Affect Care: None Current Living Situation: Spouse Other Information That Helps Us Care for You: No Feels Safe at Home: Yes Safety Concerns: Feels Safe At This Time Smoking Status: Current every day smoker Tobacco Type: cigarettes ; Cigarettes Per Day: 10 ; Do You Dip or Chew Tobacco: No ; Second Hand Exposure: Yes ; Tobacco Cessation Education Requested by Patient: No Hx Alcohol Use: Yes Alcohol type: beer Hx Substance Use: No Physical Exam Physical Exam: Temp Pulse Resp BP Pulse Ox 36.8 C 68 19 142/83 H 95 11/23/19 07:52 11/23/19 07:52 11/23/19 07:52 11/23/19 07:52 11/23/19 07:52 Constitutional: WD/WN, vitals as above Respiratory: normal respiratory effort, lungs clear to auscultation Cardiovascular: RRR, no murmur, no edema Gastrointestinal (Abdomen): normal bowel sounds, soft, nontender, no hepatosplenomegaly Skin: no rashes, warm and dry Neurologic: PERRL, EOMI, accommodation nl, no face palsy, no dysarthria Results & Data ([facility]) Vital Signs (Past 12 Hours) Vital Signs Temp Pulse Pulse Resp BP BP BP 11/23/19 07:52 36.8 C 68 19 142/83 H 11/23/19 06:45 36.5 C 66 16 135/81 11/23/19 06:00 66 18 120/61 11/23/19 05:30 61 13 109/80 11/23/19 05:00 64 22 125/69 11/23/19 04:30 68 18 127/73 11/23/19 04:00 68 19 110/65 11/23/19 03:30 71 17 129/67 11/23/19 03:00 73 18 114/69 11/23/19 02:31 71 16 11/23/19 02:30 75 17 117/75 11/23/19 02:01 75 14 11/23/19 02:00 75 16 121/68 11/23/19 01:47 11/23/19 01:31 79 19 11/23/19 01:30 76 21 127/71 11/23/19 01:01 78 17 11/23/19 01:00 78 18 118/72 11/23/19 00:31 77 19 11/23/19 00:30 71 18 109/64 11/23/19 00:24 73 18 11/23/19 00:16 73 20 118/69 11/22/19 22:52 36.7 C 77 20 130/72 Pulse Ox 11/23/19 07:52 95 11/23/19 06:45 97 11/23/19 06:00 97 11/23/19 05:30 98 11/23/19 05:00 93 11/23/19 04:30 92 11/23/19 04:00 93 11/23/19 03:30 93 11/23/19 03:00 92 11/23/19 02:31 95 11/23/19 02:30 95 11/23/19 02:01 95 11/23/19 02:00 95 11/23/19 01:47 95 11/23/19 01:31 95 11/23/19 01:30 93 11/23/19 01:01 95 11/23/19 01:00 95 11/23/19 00:31 98 11/23/19 00:30 95 11/23/19 00:24 11/23/19 00:16 11/22/19 22:52 96 Laboratory Results Cardiac Enzymes 11/23/19 11/23/19 Range/Units 00:22 07:03 AST 35 (15-37) U/L Troponin I 1.760 H* 1.800 H* (0-0.045) ng/ml Coagulation 11/23/19 11/23/19 Range/Units 00:22 08:05 PT 10.3 (9.0-12.0) Seconds APTT 30.3 104.8 H* (21.0-31.0) Seconds CBC 11/23/19 11/23/19 Range/Units 00:22 07:03 WBC 10.46 8.08 (4.8-10.8) K/uL RBC 4.01 L 3.75 L (4.7-6.1) M/uL Hgb 13.5 L 12.9 L (14.0-18.0) g/dL Hct 41.7 L 38.2 L (42-52) % Plt Count 235 173 (130-400) K/uL Neut # (Auto) 7.04 H 4.56 (1.4-6.5) K/uL Lymph # (Auto) 2.08 2.29 (1.2-3.4) K/uL [place] # (Auto) 1.04 H 0.91 H (0.11-0.59) K/uL Eos # (Auto) 0.24 0.28 (0-0.5) K/uL Baso # (Auto) 0.04 0.02 (0-0.2) K/uL Comprehensive Metabolic Panel 11/23/19 11/23/19 Range/Units 00:22 07:03 Sodium 141 140 (136-145) mmol/L Potassium 3.6 3.9 (3.5-5.1) mmol/L Chloride 111 H 111 H (98-107) mmol/L Carbon Dioxide 21 24 (21-32) mmol/L BUN 20 H 20 H (7-18) mg/dl Creatinine 1.77 H 1.43 H D (0.6-1.4) mg/dl Glucose 95 72 (70-99) mg/dl Calcium 8.4 L 8.1 L (8.5-10.1) mg/dl AST 35 (15-37) U/L ALT 26 (12-78) U/L Alkaline Phosphatase 48 (45-117) U/L Total Protein 7.3 (6.4-8.2) gm/dl Albumin 3.5 (3.4-5.0) gm/dl Intake and Output 11/22/19 11/23/19 11/23/19 22:59 06:59 14:59 Intake Total 109.6 / 109.6 Balance 109.6 / 109.6 Intake: IV 109.6 / 109.6 HEPARIN SODIUM/DEXTROSE 25,000 109.6 / 109.6 units In 500 ml @ 800 UNITS/HR 16 mls/hr IV .Q24H [facility] Rx#: [id number] Other: Weight 43.3 kg 51.8 kg Diagnostic Findings EKG performed 8:48 AM revealed normal sinus rhythm at 60 bpm with incomplete right bundle branch block, inferior T wave abnormality, unchanged compared to the previous performed at 1:08 AM, compared to previous baseline EKGs, the inferior T wave changes are more prominent. Medications Administered Current Inpatient Medications Acetaminophen (Tylenol) 650 mg PO Q4H PRN PRN Reason: Pain or Fever Stop: 12/23/19 06:44 Amlodipine Besylate (Norvasc) 2.5 mg PO DAILY [facility] Stop: 12/23/19 08:59 Last Admin: 11/23/19 07:55 Dose: 2.5 mg Documented by: Aspirin (Ecotrin Ectab) 81 mg PO QAM [facility] Stop: 12/23/19 08:59 Last Admin: 11/23/19 07:54 Dose: 81 mg Documented by: Bupropion HCl (Wellbutrin-Sr) 150 mg PO BID [facility] Stop: 12/23/19 08:59 Last Admin: 11/23/19 07:54 Dose: 150 mg Documented by: Heparin Sodium/Dextrose () 1 ea IV Q15M [facility]; Protocol Stop: 12/23/19 09:49 Hydroxychloroquine Sulfate (Plaquenil) 200 mg PO BID [facility] Stop: 12/23/19 08:59 Last Admin: 11/23/19 10:29 Dose: 200 mg Documented by: Heparin Sodium/Dextrose (Heparin Sodium/Dextrose) 25,000 units in 500 mls @ 16 mls/hr IV .Q24H [facility]; Protocol Stop: 12/23/19 01:29 Last Titration: 11/23/19 09:35 Dose: 700 units/hr, 14 mls/hr Documented by: Sodium Chloride (Nss 1000ml) 1,000 mls @ 80 mls/hr IV .[id number] [facility] Stop: 12/23/19 06:44 Last Admin: 11/23/19 07:27 Dose: 80 mls/hr Documented by: Lorazepam (Ativan) 0.5 mg PO DAILY [facility] Stop: 12/23/19 08:59 Last Admin: 11/23/19 07:49 Dose: Not Given Documented by: Metoprolol Tartrate (Lopressor) 25 mg PO BID [facility] Stop: 12/23/19 08:59 Last Admin: 11/23/19 07:57 Dose: 12.5 mg Documented by: Montelukast Sodium (Singulair) 10 mg PO DAILY [facility] Stop: 12/23/19 08:59 Last Admin: 11/23/19 07:50 Dose: Not Given Documented by: Nitroglycerin (Nitrostat) 0.4 mg SL UD PRN PRN Reason: Chest Pain Stop: 12/23/19 06:44 Last Admin: 11/23/19 07:25 Dose: 0.4 mg Documented by: Ondansetron HCl (Zofran) 4 mg IV Q6H PRN PRN Reason: Nausea Stop: 12/23/19 06:44 Oxycodone HCl (Roxicodone Immediate Rel) 5 mg PO Q4 PRN PRN Reason: Pain Stop: 12/07/19 06:44 Last Admin: 11/23/19 07:24 Dose: 5 mg Documented by: Prednisone (Prednisone) [address] [facility] Stop: 12/23/19 08:59 Last Admin: 11/23/19 07:54 Dose: 2 mg Documented by:
--- NOTE | 2019-11-23 11:43 | Electrocardiogram Report ---
Test Reason : Blood Pressure : / mmHG Vent. Rate : 060 BPM Atrial Rate : 060 BPM P-R Int : 154 ms QRS Dur : 112 ms QT Int : 476 ms P-R-T Axes : 073 049 -58 degrees QTc Int : 476 ms Normal sinus rhythm Incomplete right bundle branch block T wave abnormality, consider inferior ischemia Prolonged QT Abnormal ECG When compared with ECG of 23-NOV-2019 01:08, No significant change was found Confirmed by Ajith Jeffrey ([id number]) on 11/23/2019 11:42:32 AM Referred By: REFERRED SELF Confirmed By:Ajith Jeffrey
[2019-11-23] MEDS ORDERED: MIDAZOLAM HCL 1 MG/ML 2ML VIAL ONE (13:07)
[2019-11-23] MEDS ORDERED: NiCARDipine HCL INJ 2.5 MG/ML 10 ML AMP ONE (13:07)
[2019-11-23] MEDS ORDERED: HEPARIN (PORCINE) 1000 UNIT/ML 10 ML (CATH LAB USE ONLY) ONE (13:07)
[2019-11-23] MEDS ORDERED: fentaNYL citrate 100 MCG/2 ML VIAL ONE ×2 (13:07→14:44)
[2019-11-23] MEDS ORDERED: NITROGLYCERIN/D5W 100MCG/ML 20ML SYR ONE (13:10)
[2019-11-23] MEDS ORDERED: ATROPINE SULFATE 0.1 MG/ML 10ML SYR IV ONE (13:49)
[2019-11-23] MEDS ORDERED: CLOPIDOGREL BISULFATE 300 MG TAB ONE (14:11)
--- NOTE | 2019-11-23 14:16 | Post Anesthesia Assessment ---
Date of Service November 23, 2019 Post Sedation Assessment Vital Signs Temp Pulse Pulse Resp BP BP BP 11/23/19 11:44 98.1 F 58 L 18 109/69 11/23/19 07:52 98.2 F 68 19 142/83 H 11/23/19 06:45 97.7 F 66 16 135/81 11/23/19 06:00 66 18 120/61 11/23/19 05:30 61 13 109/80 11/23/19 05:00 64 22 125/69 11/23/19 04:30 68 18 127/73 11/23/19 04:00 68 19 110/65 11/23/19 03:30 71 17 129/67 11/23/19 03:00 73 18 114/69 11/23/19 02:31 71 16 11/23/19 02:30 75 17 117/75 11/23/19 02:01 75 14 11/23/19 02:00 75 16 121/68 11/23/19 01:47 11/23/19 01:31 79 19 11/23/19 01:30 76 21 127/71 11/23/19 01:01 78 17 11/23/19 01:00 78 18 118/72 11/23/19 00:31 77 19 11/23/19 00:30 71 18 109/64 11/23/19 00:24 73 18 11/23/19 00:16 73 20 118/69 11/22/19 22:52 98.1 F 77 20 130/72 Pulse Ox 11/23/19 11:44 100 11/23/19 07:52 95 11/23/19 06:45 97 11/23/19 06:00 97 11/23/19 05:30 98 11/23/19 05:00 93 11/23/19 04:30 92 11/23/19 04:00 93 11/23/19 03:30 93 11/23/19 03:00 92 11/23/19 02:31 95 11/23/19 02:30 95 11/23/19 02:01 95 11/23/19 02:00 95 11/23/19 01:47 95 11/23/19 01:31 95 11/23/19 01:30 93 11/23/19 01:01 95 11/23/19 01:00 95 11/23/19 00:31 98 06/30/20 00:30 95 11/23/19 00:24 11/23/19 00:16 11/22/19 22:52 96 Recovery Score Activity: Moves 4 extremities Respiration: Deep Breath/Cough Circulation: +/-20% PreAnes Value Consciousness: Fully Awake Oxygen Saturation: O2 needed for >90% Discharge Sedation Level of Care: Fast Track Phase II Post Sedation Plan On clinical assessment, the patient appears to have tolerated the sedation without complications. Patient is recovering as anticipated. Patient will continue to be monitored by nursing and may be discharged when sedation discharge criteria are met per below protocol. Upon Completions of procedure up to 15 minutes continue every 5 minute vital signs and the P.A.R. score; then discharge to a Phase I or Fast Track to Phase II per the following guidelines: * Discharge Patient to appropriate Phase II area if PAR is 8 or greater or return to pre- procedure baseline. The post - procedure orders will be as directed. * If PAR score is less than 8 or not return to pre-procedure baseline then patient will follow Phase I monitoring till PAR is reached for Phase II. The Phase I may be done in procedure room or may call to secure a Phase I area. * If naloxone or flumazenil are used for reversal, hold in Phase I for continued monitoring from when last reversal dose was given for a minimum of 60 minutes or longer pending the nurse and/or physician discretion of patient condition before discharge to Phase II. Please call the Sedation Physician to re-evaluate and complete post-note for discharge to Phase II area. Do NOT discharge from procedure sedation or Phase 1 until post- sedation evaluation note is complete by procedure /sedation MD Sedation Discharge Instructions to be given to the patient at discharge to home.
--- NOTE | 2019-11-23 14:16 | Pre Anesthesia Assessment ---
Date of Service November 23, 2019 Pre Sedation Assessment Vital Signs Temp Pulse Pulse Resp BP BP BP 11/23/19 11:44 98.1 F 58 L 18 109/69 11/23/19 07:52 98.2 F 68 19 142/83 H 11/23/19 06:45 97.7 F 66 16 135/81 11/23/19 06:00 66 18 120/61 11/23/19 05:30 61 13 109/80 11/23/19 05:00 64 22 125/69 11/23/19 04:30 68 18 127/73 11/23/19 04:00 68 19 110/65 11/23/19 03:30 71 17 129/67 11/23/19 03:00 73 18 114/69 11/23/19 02:31 71 16 11/23/19 02:30 75 17 117/75 11/23/19 02:01 75 14 11/23/19 02:00 75 16 121/68 11/23/19 01:47 11/23/19 01:31 79 19 11/23/19 01:30 76 21 127/71 11/23/19 01:01 78 17 11/23/19 01:00 78 18 118/72 11/23/19 00:31 77 19 11/23/19 00:30 71 18 109/64 11/23/19 00:24 73 18 11/23/19 00:16 73 20 118/69 11/22/19 22:52 98.1 F 77 20 130/72 Pulse Ox 11/23/19 11:44 100 11/23/19 07:52 95 11/23/19 06:45 97 11/23/19 06:00 97 11/23/19 05:30 98 11/23/19 05:00 93 11/23/19 04:30 92 11/23/19 04:00 93 11/23/19 03:30 93 11/23/19 03:00 92 11/23/19 02:31 95 11/23/19 02:30 95 11/23/19 02:01 95 11/23/19 02:00 95 11/23/19 01:47 95 11/23/19 01:31 95 11/23/19 01:30 93 11/23/19 01:01 95 11/23/19 01:00 95 11/23/19 00:31 98 06/30/20 00:30 95 11/23/19 00:24 11/23/19 00:16 11/22/19 22:52 96 Cardiovascular RRR, no murmur, no edema Respiratory normal respiratory effort, lungs clear to auscultation Pre-Sedation Airway Assessment Smoking Status: Current every day smoker Hx Sleep Apnea: No Hx Difficult Intubation: No Short, Thick Neck: No Thyromental Distance: > or= 3.5 Finger Breadths Oral Cavity: + WNL Mallampati Class: I ASA: ASA2 NPO Status Date of Last Intake of Fluids: 11/22/19 Time of Last Intake of Fluids: 18:00 Date of Last Intake of Solid Food: 11/22/19 Time of Last Intake of Solid Foods: 18:00 Procedure Planning Contraindications for Sedation: none Current Medications Reviewed: Yes Notes The planned sedation has been discussed with the patient. Informed Consent was obtained. I have identified the patient, determined the appropriateness of sedation and have assessed the patient immediately prior to the procedure. All medicine(s) and interventions are by my order.
--- NOTE | 2019-11-23 14:26 | Cardiac Catheterization ---
[facility] Data: Theoretical Physicist Cardiac Status Clinical evaluation leading to the procedure CAD Presenation: Non STEMI Anginal Classification: CCS IV Heart Failure: No Cardiogenic Shock within 24 Hours: No Cardiac Arrest within 24 Hours: No Imaging Studies Past 6 Months: Yes Stress Studies Past 6 Months: No Diagnostic Physicians Name: Colton Looney MD Status: Elective Closure Device Percutaneous Entry Location: Radial Closure Device: Radial Band Recommendations: PCI without planned CABG PCI Indication: PCI for high risk Non-BALJIT Lesion Segment Name: Mid RCA Culprit Artery: Yes Stenosis Prior to Rx (%): 95 Chronic Total Occlusion: No IVUS: No FFR: No Pre-Procedure JENNIFER Flow: 1 Previously Treated Lesion: No Lesion Complexity: Non-High/Non-C Lesion Length (mm): 18 Thrombus Present: Yes Bifurcation Lesion: No Guidewire Across Lesion: Stenosis Post-Procedure (%): 0 Post-Procedure JENNIFER Flow: 3 Devices(s) Deployed: Yes Yes Intraprocedure Events Significant Disection: No Perforation: No Cardiac Cath Procedure Full Procedure Date November 23, 2019 Pre-Procedure Diagnosis Pre-Procedure Diagnosis: Non STEMI AUC Score AUC Score: 8 Post-Procedure Diagnosis Post-Procedure Diagnosis: Severe CAD, Successful PCI and Normal Intracardiac Pressures Procedure(s) Performed Procedure(s) Performed: Coronary Angiography, Left Heart Cath and Drug Eluting Stent Citizen Participation Specialist Colton Looney MD Aerographer(s) [place] Estimated Blood Loss Estimated Blood Loss: 15 Medication(s) Medication(s): Clopidogrel, Fentanyl, Heparin, Lidocaine 1%, Nicardipine, Nitroglycerin and Versed Summary of Findings Indication: High risk NSTEMI Access: 6 Fr slender right radial artery Catheters: AR-1 Brandon ramirez Findings: LM -Short, large caliber LAD -large caliber, angiographically normal, wraps around apex. First and second diagonal without significant disease. Faint collaterals from LAD to right PDA. Circumflex -medium caliber vessel, 30% mid segment disease. OM1, OM 2 without significant disease. RCA -dominant, large caliber vessel, mid segment mildly calcified with 95% acute thrombotic stenosis and JENNIFER II distal flow. LVEDP -11 -- PCI -- Antithrombotic therapy: Heparin, clopidogrel Procedure: RCA cannulated with AR-1 guide Dairy Nutrition Specialist 50 wire passed across lesion into distal vessel Mid RCA lesion predilated with 3.0 compliant balloon Dilated lesion stented with 4.0 x 22 mm [place] drug-eluting Stent post-dilated with 4.0 noncompliant balloon IC vasodilators administered for spasm Post procedure JENNIFER 3 flow, stent well expanded with minimal residual stenosis and no apparent cardiac complications. Arterial Closure: TR band Summary: 1. Severe single-vessel coronary artery disease -95% acute thrombotic mid RCA stenosis 2. Normal intracardiac filling pressure 3. Successful PCI of mid RCA with single drug-eluting stent (4.0 x 22 mm [place]). Recommendations: To PCU for continued monitoring Loaded with clopidogrel 600 mg in Theoretical Physicist Continue dual-antiplatelet therapy for at least 1 year Continue statin, and ASCVD risk factor modification Consult cardiac Rehab Hemodynamics Rest Ao:: 110/67/84 Final Ao: 123/66/88 LV: 121/11 Recommendations Recommendations: PCI without planned CABG Specimens Specimens: None Radiation Exposure (mGy) 717 Contrast (mls) 60 Fluids (cc crystalloids) Fluids (cc crystalloids): 69 Drains Drains: None Anesthesia Moderate Procedural Complication(s) None Disposition PCU I attest to the content of the Intraoperative Record and any orders documented therein. Any exceptions are noted below. [facility] Card Cath Procedure Codes Cardiac Catheterization Procedure 1: Cardiovascular Cath Procedures: 64892 Coronaries and LHC (+/-LV) Moderate Sedation Procedure 1: Sedation/Anesthesia: 65285 Mod Sedation by the same physician;Init15 Min Child Age 5 & Up Procedure 2: Sedation/Anesthesia: 12621 Mod Sedation by the same physician; Ea [id number] Minutes Stenting Procedure 1: Cardiovascular Stent Procedures: 14678 Perc transcatheter placement of intracoronary stent(s), with ang PG Care Time/CCT Total # of Minutes Spent Total Time Spent with Patient: Total time spent is greater than 50% in coordination of care (as documented) at patient's floor/unit and/or counseling patient:
[2019-11-23] MEDS: ATORVASTATIN 20 MG TAB PO SCH (15:41)
--- NOTE | 2019-11-23 16:43 | Electrocardiogram Report ---
Test Reason : Blood Pressure : / mmHG Vent. Rate : 051 BPM Atrial Rate : 051 BPM P-R Int : 160 ms QRS Dur : 106 ms QT Int : 528 ms P-R-T Axes : 060 -18 -51 degrees QTc Int : 486 ms Sinus bradycardia T wave abnormality, consider inferolateral ischemia Prolonged QT Abnormal ECG When compared with ECG of 23-NOV-2019 08:48, T wave inversion now evident in Lateral leads Confirmed by Ajith Jeffrey ([id number]) on 11/23/2019 4:42:46 PM Referred By: REFERRED SELF Confirmed By:Ajith Jeffrey
[2019-11-23 16:50] LABS: Partial Thromboplastin Ratio > 5.0
[2019-11-23 16:51] LABS: Partial Thromboplastin Time > 139.0 Seconds (21.0-31.0)
[2019-11-24 06:20] LABS: Basophils # (auto) 0.03 K/uL (0-0.2); Basophils % (auto) 0.4 %; Eosinophils # (auto) 0.24 K/uL (0-0.5); Eosinophils % (auto) 3.1 %; Hematocrit (blood only) 41.2 % (42-52); Hemoglobin 13.9 g/dL (14.0-18.0); Immature Granulocytes # (auto) 0.02 K/uL (0.00-0.02); Immature Granulocytes % (auto) 0.3 %; Lymphocytes # (auto) 1.77 K/uL (1.2-3.4); Lymphocytes % (auto) 22.6 %; Mean Corpuscular Hemoglobin 34.4 pg (25-34); Mean Corpuscular Hgb Conc 33.7 g/dL (32-36); Mean Platelet Volume 9.7 fL (7.4-10.4); Monocytes # (auto) 1.07 K/uL (0.11-0.59); Monocytes % (auto) 13.7 %; Neutrophils % (auto) 59.9 %; Platelet Count 200 K/uL (130-400); RDW Standard Deviation 48.8 fL (36.4-46.3); Red Blood Count 4.04 M/uL (4.7-6.1); White Blood Count 7.83 K/uL (4.8-10.8)
[2019-11-24 06:49] LABS: Est GFR (African American) 67.5; Potassium 4.2 mmol/L (3.5-5.1)
[2019-11-24 06:50] LABS: Albumin Level 3.2 gm/dl (3.4-5.0); BUN Creatinine Ratio 16.9 (10-20); Calcium 8.2 mg/dl (8.5-10.1); Creatinine Clr Calc Pharmacy 42.8 ml/min; Est GFR (Non-African American) 58.2
[2019-11-24 06:52] LABS: Bilirubin,Total 0.3 mg/dl (0.2-1); Globulin 3.3 gm/dl (2.5-4.0); Total Protein 6.5 gm/dl (6.4-8.2)
[2019-11-24] MEDS: LORazepam 0.5 MG TAB PO SCH (08:21)
[2019-11-24] MEDS: MONTELUKAST SODIUM 10 MG TABLET PO SCH (08:22)
[2019-11-24] MEDS ORDERED: CLOPIDOGREL BISULFATE 75 MG TAB PO SCH (09:00)
[2019-11-24] MEDS: AMLODIPINE BESYLATE 5 MG TAB PO SCH (09:31)
[2019-11-24] MEDS: BuPROPion SR 150 MG TABCR PO SCH (09:31)
[2019-11-24] MEDS: predniSONE 1 MG TAB PO SCH (09:31)
[2019-11-24] MEDS: ASPIRIN 81 MG ECTAB PO SCH (09:32)
[2019-11-24] MEDS: HYDROXYCHLOROQUINE SULFATE 200 MG TAB PO SCH (09:32)
[2019-11-24] MEDS: METOPROLOL TARTRATE 25 MG TAB PO SCH (09:32)
[2019-11-24] MEDS: ATORVASTATIN 20 MG TAB PO SCH (09:32)
--- NOTE | 2019-11-24 10:56 | Cardiology Progress Note ---
Date of Service November 24, 2019 Assessment & Plan (1) Acute non-ST elevation myocardial infarction (NSTEMI): Patient presented with an inferior non-ST segment elevation myocardial infarction, cardiac catheterization performed 11/23/2019 revealed single-vessel coronary heart disease with a 95% acute thrombotic stenosis of the mid right coronary artery. Successful PCI of mid RCA with single drug-eluting stent (4.0 x 22 mm [place]), 11/23/2019. Patient is stable for discharge on the following medications: Aspirin 81 mg daily, lifelong therapy Clopidogrel 75 mg daily,, at which time ongoing dual antiplatelet therapy will be reassessed. Metoprolol succinate 25 mg,one tablet daily (replaces twice a day dosing of metoprolol tartrate) Amlodipine 2.5 mg daily, which she has taken on a chronic basis for treatment of Raynauds phenomenon related to his scleroderma Atorvastatin 20 mg by mouth daily Continue prior to hospital treatment with Plaquenil, lorazepam, Singulair, prednisone. Outpatient cardiology follow-up in 2 to 4 weeks. Subjective Patient seen in follow-up having initially presented with chief complaint of chest discomfort. He tolerated cardiac catheterization well yesterday. He feels well without any recurrent chest discomfort overnight or this morning. His right wrist procedure site is pain-free today. Telemetry reveals sinus bradycardia in the 50s. Review of Systems Review of Systems: All systems reviewed & are unremarkable except as noted in HPI & below Physical Exam Physical Exam: Temp Pulse Resp BP Pulse Ox 36.4 C L 90 18 105/66 99 11/24/19 07:26 11/24/19 07:26 11/24/19 07:26 11/24/19 07:26 11/24/19 07:26 Constitutional: + thin No acute distress Respiratory: normal respiratory effort, lungs clear to auscultation Cardiovascular: RRR, no murmur, no edema Gastrointestinal (Abdomen): normal bowel sounds, soft, nontender, no hepatosplenomegaly Skin: Right wrist radial artery procedure access site clean dry and intact, no hematoma. Neurologic: PERRL, EOMI, accommodation nl, no face palsy, no dysarthria Results & Data Vital Signs (Past 12 Hours) Vital Signs Temp Pulse Pulse Resp BP Pulse Ox 11/24/19 07:26 36.4 C L 90 18 105/66 99 11/24/19 03:34 36.5 C 96 H 16 105/66 96 11/24/19 00:00 59 L 11/23/19 23:03 36.6 C 57 L 16 115/65 96 Laboratory Results Cardiac Enzymes 11/23/19 11/23/19 11/24/19 Range/Units 15:48 19:09 05:46 AST 43 H (15-37) U/L Troponin I 1.640 H* 1.970 H* (0-0.045) ng/ml Coagulation 11/23/19 Range/Units 15:48 APTT > 139.0 H* (21.0-31.0) Seconds CBC 11/24/19 Range/Units 05:46 WBC 7.83 (4.8-10.8) K/uL RBC 4.04 L (4.7-6.1) M/uL Hgb 13.9 L (14.0-18.0) g/dL Hct 41.2 L (42-52) % Plt Count 200 (130-400) K/uL Neut # (Auto) 4.70 (1.4-6.5) K/uL Lymph # (Auto) 1.77 (1.2-3.4) K/uL [place] # (Auto) 1.07 H (0.11-0.59) K/uL Eos # (Auto) 0.24 (0-0.5) K/uL Baso # (Auto) 0.03 (0-0.2) K/uL Comprehensive Metabolic Panel 11/24/19 Range/Units 05:46 Sodium 141 (136-145) mmol/L Potassium 4.2 (3.5-5.1) mmol/L Chloride 112 H (98-107) mmol/L Carbon Dioxide 26 (21-32) mmol/L BUN 22 H (7-18) mg/dl Creatinine 1.32 (0.6-1.4) mg/dl Glucose 83 (70-99) mg/dl Calcium 8.2 L (8.5-10.1) mg/dl AST 43 H (15-37) U/L ALT 24 (12-78) U/L Alkaline Phosphatase 47 (45-117) U/L Total Protein 6.5 (6.4-8.2) gm/dl Albumin 3.2 L (3.4-5.0) gm/dl Intake and Output 11/23/19 11/24/19 11/24/19 22:59 06:59 14:59 Intake Total 350 / 1509.6 1050 / 1509.6 Balance 350 / 1509.6 1050 / 1509.6 Intake: IV 1000 / 1109.6 Nss 1000ML 1,000 ml @ 80 mls/hr 1000 / 1000 IV .[id number] [facility] Rx#:[id number] Oral 350 / 400 50 / 400 Other: Weight 50.8 kg Medications Administered EKG performed this morning, 11/24/2019 and reviewed independently reveals sinus bradycardia 54 bpm with incomplete right bundle branch block, inferior T wave inversion, relatively unchanged compared to his pre-cardiac catheterization EKG.
--- NOTE | 2019-11-24 11:52 | Hospitalist Progress Note ---
Date of Service delayed entry date of service noted below November 24, 2019 Assessment & Plan (1) Acute non-ST elevation myocardial infarction (NSTEMI): per Dr. Partha Tavarez's notes (previous hospitalist): -This is a 59-year-old male who presents with chest pain and found to have elevated troponin. Patient reported prior to coming hospital he had 1 hour chest pain that lasted to 10:30 PM. -placed on IV Heparin 11/23/2019: s/p Cardiac Cath revealed single-vessel coronary heart disease with a 95% acute thrombotic stenosis of the mid right coronary artery Successful PCI of mid RCA with single drug-eluting stent (4.0 x 22 mm [place]), 11/23/2019. [facility] Dr. Herrera recommendations: Aspirin 81 mg daily, lifelong therapy Clopidogrel 75 mg daily, at which time ongoing dual antiplatelet therapy will be reassessed. Metoprolol succinate 25 mg,one tablet daily (replaces twice a day dosing of metoprolol tartrate) Amlodipine 2.5 mg daily, which she has taken on a chronic basis for treatment of Raynauds phenomenon related to his scleroderma Atorvastatin 20 mg by mouth daily ff up with [facility] in 2 weeks Acute kidney injury -Baseline creatinine around 1.1-1.25 and admission creatinine 1.7 -IV fluids were given, crea back to baseline Hypertension -Metoprolol changed to succinate continue amlodipine History of myelodysplastic syndrome and pernicious anemia. 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 - History of cardiac arrest with prolonged hospital secondary to PE as per the patient. scleroderma and CREST syndrome -on Plaquenil and prednisone. -Follows with a Dermatology clinic as outpatient - Speech Therapist consulted, instructions given advised to ff up with [facility] [employer] closely Disposition d/c home ff up with PCP as scheduled ff up with [facility] in 2 weeks f fup with GI, Derm as scheduled Admission and Anticipated Discharge Date Admission Date: November 23, 2019 Subjective ff up for NSTEMI seen resting in bed, comfortable not in distress states he feels fine overall denies chest pain, dyspnea, palpitations, dizziness ambulating with no problems has intermittent coughing with eating, chronic no other symptoms states he is ready and would like to be discharged today Review of Systems Review of Systems: All systems reviewed & are unremarkable except as noted in HPI & below Physical Exam Physical Exam: General- oriented x 3, not in distress, speaks in sentences with no effort or accessory muscle use Eyes- anicteric Neck- no JVD Lungs- clear breath sounds bilaterally, no rales/wheezes Heart- normal rate, regular rhythm; no murmurs Abdomen- normal bowel sounds, nondistended, soft, nontender Extremities- no pretibial edema, no calf tenderness Neuro- alert, oriented x 3; no gross focal neurologic deficits Skin- warm & dry Results & Data Results & Data ([facility]) Vital Signs (Past 12 Hours) Vital Signs Temp Pulse Pulse Resp BP Pulse Ox 11/24/19 11:09 36.7 C 48 L 18 116/74 99 11/24/19 07:26 36.4 C L 90 18 105/66 99 11/24/19 03:34 36.5 C 96 H 16 105/66 96 11/24/19 00:00 59 L Laboratory Results all noted and reviewed
--- NOTE | 2019-11-24 14:37 | Electrocardiogram Report ---
Test Reason : Blood Pressure : / mmHG Vent. Rate : 054 BPM Atrial Rate : 054 BPM P-R Int : 146 ms QRS Dur : 106 ms QT Int : 494 ms P-R-T Axes : 070 039 -56 degrees QTc Int : 468 ms Sinus bradycardia Incomplete right bundle branch block T wave abnormality, consider inferior ischemia Abnormal ECG When compared with ECG of 23-NOV-2019 15:19, T wave inversion no longer evident in Anterolateral leads Confirmed by Ajith Jeffrey ([id number]) on 11/24/2019 2:36:53 PM Referred By: REFERRED SELF Confirmed By:Ajith Jeffrey
[2019-11-25] MEDS ORDERED: METOPROLOL SUCC 25MG EXT REL TAB PO SCH (09:00)
--- NOTE | 2019-12-01 13:05 | Discharge Summary ---
Date of Service December 01, 2019 Admission HPI Per Admitting Provider HISTORY OF PRESENT ILLNESS: This is a 59-year-old male with past medical history significant for DVT/PE, cardiac arrest secondary to PE and prolonged stay in the ICU with PEG tube placement at that time, history of myelodysplastic disease, anemia with myelodysplastic syndrome, CREST syndrome, scleroderma, anxiety state, hx of nonischemic cardiomyopathy, ARDS, history of hypernatremia and hyperkalemia, EF was 20% in 2013 but improved to 54% as in November 2016, presents with chest pain. The patient says last night around 9:00, he noticed a burning kind of sensation going to his throat and is radiating to his both the hands, moderate in severity, which prompted him to come to the ER. In the ER, he received fentanyl, and aspirin and the pain improved to mild discomfort. ECG shows some T-wave inversions in inferior leads and troponin was 1.7. He was started on heparin drip. Currently resting comfortably and hemodynamically stable. The patient denies any headache. No blurred vision, no earache, no runny nose, no sore throat, no dysphagia, no loss of sense of smell or taste. Denies any shortness of breath. No sweating, no shortness of breath, no cough, no fevers, no abdominal pain. Normal bowel and bladder movements. No blood in the stools, no hematuria. No swelling in the legs, no rash. Admission Exam Per Admitting Provider HEENT: Head - normocephalic and atraumatic Pupils are equal, round, and reactive to light. Extraocular eye muscles are intact, and sclera are anicteric. Nose - moist nasal mucosa without discharge. Mouth - moist buccal mucosa. Oropharynx is nonerythematous and there is no tonsillar exudate or edema noted. Neck: Supple; no JVD, nuchal rigidity, cervical lymphadenopathy. Heart: Regular rate and rhythm. There is a normal S1 and S2 with no murmurs, clicks, or gallops appreciated. Lungs: Clear to auscultation bilaterally with no wheezes, rales, or rhonchi. Abdomen: Soft, completely nontender, nondistended, with good bowel sounds. There are no palpable pulsatile masses or hepatosplenomegaly. There is no guarding, rigidity, or rebound noted. Extremities: No evidence of cyanosis, clubbing, or edema. There are easily palpable peripheral pulses. Skin: warm and dry with good turgor and no rashes. Rectal exam: Stool was black in color but was Hemoccult negative Principal Diagnosis NON ST ELEVATION MYOCARDIAL INFARCTION, Successful PCI of mid RCA with single drug-eluting stent (4.0 x 22 mm [place]), 11/23/2019. Discharge Exam General- oriented x 3, not in distress, speaks in sentences with no effort or accessory muscle use Eyes- anicteric Neck- no JVD Lungs- clear breath sounds bilaterally, no rales/wheezes Heart- normal rate, regular rhythm; no murmurs Abdomen- normal bowel sounds, nondistended, soft, nontender Extremities- no pretibial edema, no calf tenderness Neuro- alert, oriented x 3; no gross focal neurologic deficits Skin- warm & dry Discharge Data Allergies Allergy/AdvReac Type Severity Reaction Status Date / Time Bactrim Allergy Severe ANAPHYLAXIS; Verified 01/05/18 05:45 VERY SICK; HOSPITALIZED celecoxib Allergy Severe hives/rash Verified 11/23/19 00:06 levofloxacin Allergy Severe "CAUSES Verified 11/23/19 00:06 FLARE-UP OF SCLERODERMA" sulfamethoxazole Allergy Severe ANAPHYLAXIS; Verified 11/23/19 00:06 VERY SICK; HOSPITALIZED trimethoprim Allergy Severe ANAPHYLAXIS; Verified 11/23/19 00:06 VERY SICK; HOSPITALIZED Consultations 11/23/19 01:19 ED Decision to Admit Stat 11/23/19 06:45 Consult Case Management - Discharge Planning Routine 11/23/19 08:00 Consult Cardiology Routine 11/23/19 14:29 Consult Cardiac Rehabilitation Routine Procedures Performed Operation Date: 11/23/19 11:00 Actual Procedures p Cath, Left with Cors and Vent - Lexx Looney MD s Drug Eluting Stent SGl Vessel - Lexx Looney MD s Cineradiography w/Routine Exam - Lexx Looney MD Ordered Studies 11/23/19 13:21 CL Cath Imgs for PACS use only Routine Hospital Course (1) Acute non-ST elevation myocardial infarction (NSTEMI): NSTEMI per Dr. Partha Tavarez's notes (previous hospitalist): -This is a 59-year-old male who presents with chest pain and found to have elevated troponin. Patient reported prior to coming hospital he had 1 hour chest pain that lasted to 10:30 PM. -placed on IV Heparin 11/23/2019: s/p Cardiac Cath revealed single-vessel coronary heart disease with a 95% acute thrombotic stenosis of the mid right coronary artery Successful PCI of mid RCA with single drug-eluting stent (4.0 x 22 mm [place]), 11/23/2019. Merchandise Complaint Adjuster Dr. Herrera recommendations: Aspirin 81 mg daily, lifelong therapy Clopidogrel 75 mg daily, at which time ongoing dual antiplatelet therapy will be reassessed. Metoprolol succinate 25 mg,one tablet daily (replaces twice a day dosing of metoprolol tartrate) Amlodipine 2.5 mg daily, which she has taken on a chronic basis for treatment of Raynauds phenomenon related to his scleroderma Atorvastatin 20 mg by mouth daily ff up with Merchandise Complaint Adjuster in 2 weeks Acute kidney injury -Baseline creatinine around 1.1-1.25 and admission creatinine 1.7 -IV fluids were given, crea back to baseline Hypertension -Metoprolol changed to succinate continue amlodipine History of myelodysplastic syndrome and pernicious anemia. 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 - History of cardiac arrest with prolonged hospital secondary to PE as per the patient. Scleroderma and CREST syndrome -on Plaquenil and prednisone. -Follows with a Dermatology clinic as outpatient - Speech Therapist consulted, instructions given advised to ff up with Internet Security Specialist closely Disposition d/c home ff up with PCP as scheduled ff up with Merchandise Complaint Adjuster in 2 weeks f fup with GI, Derm as scheduled Total Time Total Time Spent Total Time Spent (In Minutes): >30 MINUTES Discharge Plan Discharge Items Patient Disposition: Home - Self-Care Reason For Visit: CHEST PAIN Discharge Diagnosis: Non ST Elevation Myocardial Infarction Activity: As commented below Activity Comment: Gradually as tolerated, No heavy exertion Lifting: Wait until after follow-up appointment Exercise/Sports: Wait until after follow-up appointment Driving/Machine Use: No Driving until re-evaluated by Primary Care Physician Non-emergency contact: Primary Care Provider Call non-emergency contact if: you have any medication questions and you have a fever Follow-up/Referrals: Luís Herrera DO [Merchandise Complaint Adjuster] - Jeff Davis DO [Primary Care Provider] - 12/01/19 1:30 pm Diet: Heart Healthy Addtl Attending Provider Instructions: Please review your new medication list and follow instructions carefully. Your new medications include: Aspirin and Plavix- anti-platelets, to prevent hear attacks and cardiac stent occlusion - always take Aspirin with a full stomach Lipitor- for cholesterol lowering Change Metoprolol tartrate to Metoprolol succinate- long acting medication for blood pressure, and heart rate control Nitroglycerin- as needed for chest pain - take 1 dose promptly in response to chest pain. If pain is unrelieved or worsened 3 to 5 minutes after 1 dose, call immediately Please follow up with Primary Care Physician next week as outline below. Follow up with [facility] Merchandise Complaint Adjuster Dr. Luís Herrera in 2 weeks. His clinic will be calling you for the appointment. Call 911 immediately if with chest pain that is not relieved by 1 dose of Nitroglycerin. Call Primary Care Physician or return to the ER immediately if with dizziness, weakness, palpitations, shortness of breath, black or blood in the stools. Follow Speech Therapist recommendations. Pending Studies at Discharge: No Stand-Alone Forms: My [facility], Smoking Cessation Medications and DC Order Prescriptions: New atorvastatin 20 mg Tablet 20 mg PO QAM Qty: 30 RF: 2 clopidogrel 75 mg Tablet 75 mg PO QAM Qty: 30 RF: 2 nitroglycerin [Nitrostat] 0.4 mg Tablet, Sublingual 0.4 mg sublingual UD PRN (Reason: chest pain) Qty: 15 RF: 0 metoprolol succinate 25 mg Tablet Extended Release 24 Hr 25 mg PO QAM Qty: 30 RF: 2 aspirin 81 mg Tablet,Delayed Release (Dr/Ec) 81 mg PO QAM Qty: 30 RF: 2 Continued bupropion HCl 150 mg tablet sustained-release 12 hr 150 mg PO BID RF: 0 lorazepam 0.5 mg tablet 0.5 mg PO DAILY RF: 0 prednisone 1 mg tablet 2 mg PO QAM RF: 0 hydroxychloroquine 200 mg tablet 200 mg PO BID RF: 0 oxycodone 5 mg tablet 5 mg PO Q4 PRN (Reason: Pain) RF: 0 amlodipine 2.5 mg tablet 2.5 mg PO DAILY RF: 0 montelukast 10 mg tablet 10 mg PO DAILY RF: 0 Discontinued metoprolol tartrate 25 mg tablet 25 mg PO BID RF: 0 Discharge Orders: Discharge Order (Routine); Ordered 11/24/19 Ordered By: Trung Tavarez Admission Data Admit Date/Time: 11/23/19 05:36 Attending Provider: Trung Tavarez Admit Provider: Placido Ames Primary Care Provider: Jeff Davis Other Providers: Placido Ames ; Luís Herrera ; Partha Tavarez Other Interventions: Discharge Summary Assessment (RN) Last Done: 11/24/19 14:19 DC Date/Time DO NOT enter until pt leaves facility: 11/24/19 14:41
== END 2019-11-24 14:41 | disposition home or self-care (01) ==
LOC: ED 22:42 → SUATTDRO 11-23 05:36 → INTOOBSV 11-23 05:36 → 2S 11-23 05:36

== ENCOUNTER 2023-09-26 09:19 | Inpatient (IN) ==
--- NOTE | 2023-08-28 13:27 | PAT Medication Instructions ---
Medication Instructions Date of Service August 28, 2023 Home Medications Medication Instructions Recorded aspirin 81 mg tablet,delayed 81 mg PO QAM #30 tabs 11/24/19 release nitroglycerin 0.4 mg sublingual 0.4 mg sublingual UD PRN chest 11/24/19 tablet (Nitrostat) pain #15 tabs bupropion HCl 150 mg tablet,12 hr sustained-release 150 mg PO BID lorazepam 0.5 mg tablet 0.5 mg PO DAILY PRN oxycodone 5 mg tablet 5 mg PO BID PRN prednisone 1 mg tablet 2 mg PO QAM montelukast 10 mg tablet 10 mg PO QAM aspirin 81 mg tablet,delayed release 81 mg PO QAM nitroglycerin 0.4 mg sublingual tablet (Nitrostat) 0.4 mg sublingual UD PRN albuterol sulfate 90 mcg/actuation aerosol inhaler 2 puff inhalation Q4H PRN atorvastatin 20 mg tablet 20 mg PO Q OTHER DAY mycophenolate sodium 360 mg tablet,delayed release 360 mg PO BID nintedanib 150 mg capsule (Ofev) 150 mg PO Q12H pantoprazole 40 mg tablet,delayed release 40 mg PO QAM Continue as directed atorvastatin 20 mg tablet 20 mg PO Q OTHER DAY lorazepam 0.5 mg tablet 0.5 mg PO DAILY PRN(if needed) nitroglycerin 0.4 mg sublingual tablet (Nitrostat) 0.4 mg sublingual UD PRN(if needed) ASK your prescriber and surgeon aspirin 81 mg tablet,delayed release 81 mg PO QAM mycophenolate sodium 360 mg tablet,delayed release 360 mg PO BID nintedanib 150 mg capsule (Ofev) 150 mg PO Q12H Take morning of surgery With a small sip of water, OTHERWISE NOTHING TO EAT OR DRINK AFTER MIDNIGHT: bupropion HCl 150 mg tablet,12 hr sustained-release 150 mg PO BID oxycodone 5 mg tablet 5 mg PO BID PRN(if needed) prednisone 1 mg tablet 2 mg PO QAM montelukast 10 mg tablet 10 mg PO QAM albuterol sulfate 90 mcg/actuation aerosol inhaler 2 puff inhalation Q4H PRN(use if needed; please bring with you to hospital day of surgery if possible) pantoprazole 40 mg tablet,delayed release 40 mg PO QAM Take evening before surgery bupropion HCl 150 mg tablet,12 hr sustained-release 150 mg PO BID oxycodone 5 mg tablet 5 mg PO BID PRN(if needed) albuterol sulfate 90 mcg/actuation aerosol inhaler 2 puff inhalation Q4H PRN(if needed) Other Notes If you have any questions please call us at [phone] or [phone] or [phone] or [phone]
--- NOTE | 2023-09-04 10:56 | Anesthesiology Consultation ---
Date of Service September 04, 2023 Assessment & Plan (1) Encounter for pre-operative examination: - upcoming pulmonology appointment, Dr. Romero [facility] Tim. - awaiting [facility] cardiology clearance. Optimization form to be faxed to [facility] cardiology. - Case discussed in detail with Dr. Trotter who agreed with [facility] cardiology clearance, advised pulmonology clearance is not needed-just to obtain upcoming pulmonology office note. Surgeon's office made aware. - Outpatient joint assessment: Patient is currently scheduled for inpatient pathway. If re-evaluated and patient/surgeon requests outpatient pathway, patient is not a candidate for outpatient joint program from anesthesia standpoint. Chart Review Chart Review: Pending: Refer to Additional Notes / Consult section and Patient seen in Pre Admission Testing Teaching & Discussion Pre-Anesthesia Teaching/Discussion Notes: Instructed NPO after midnight before surgery, except medications with 15 cc of water. Medication instructions provided according to the PAT guidelines. History Surgery Operation Date: 09/26/23 07:00 Proposed Procedures p Right Total Knee Arthroplasty - Luís Morales MD Height/Weight Height: 5 ft 4 in Weight: 50.7 kg Allergies Allergy/AdvReac Type Severity Reaction Status Date / Time levofloxacin Allergy Severe Scleroderma Verified 08/22/23 09:15 flare sulfamethoxazole Allergy Severe Anaphylaxis, Verified 08/22/23 09:15 "very sick" trimethoprim Allergy Severe Anaphylaxis, Verified 08/22/23 09:15 "very sick" celecoxib Allergy Intermediate Hives, rash Verified 08/22/23 09:15 hydroxychloroquine AdvReac Severe toxicity Verified 09/04/23 11:33 cephalexin AdvReac Intermediate myalgias Verified 09/04/23 11:33 Medications Home Medications Medication Instructions Recorded Confirmed Last Taken bupropion HCl 150 mg tablet,12 hr 150 mg PO BID 06/26/18 08/22/23 06/19/21 08:00 sustained-release lorazepam 0.5 mg tablet 0.5 mg PO DAILY PRN anxiety/sleep 06/26/18 08/22/23 1 Week Ago ~06/13/21 oxycodone 5 mg tablet 5 mg PO BID PRN pain 06/26/18 08/22/23 06/19/21 15:00 prednisone 1 mg tablet 2 mg PO QAM 06/26/18 08/22/23 06/19/21 08:00 montelukast 10 mg tablet 10 mg PO QAM 11/23/19 08/22/23 06/19/21 08:00 aspirin 81 mg tablet,delayed 81 mg PO QAM #30 tabs 11/24/19 08/22/23 06/19/21 08:00 release nitroglycerin 0.4 mg sublingual 0.4 mg sublingual UD PRN chest 11/24/19 08/22/23 05/03/20 19:30 tablet (Nitrostat) pain #15 tabs 1 tablet albuterol sulfate 90 mcg/actuation 2 puff inhalation Q4H PRN sob 08/22/23 08/22/23 Unknown aerosol inhaler atorvastatin 20 mg tablet 20 mg PO Q OTHER DAY 08/22/23 08/22/23 Unknown mycophenolate sodium 360 mg 360 mg PO BID 08/22/23 08/22/23 Unknown tablet,delayed release nintedanib 150 mg capsule (Ofev) 150 mg PO Q12H 08/22/23 08/22/23 Unknown pantoprazole 40 mg tablet,delayed 40 mg PO QAM 08/22/23 08/22/23 Unknown release Past Medical History Medical History (Updated 09/04/23 @ 11:35 by Vianney Dia PA-C) Anxiety and depression CAD (coronary artery disease) PCI mid RCA with single JEANINE (10/2019) Mild to moderate non-obstructive coronary artery disease with widely patent mid RCA stent per 05/04/20 cardiac cath. Plavix discontinued by cardiology 11/2020 after completion of one year post stent placement. Sees Dr. Sharon Win [facility] Chronic steroid use CKD (chronic kidney disease) stage 3, GFR 30-59 ml/min COPD (chronic obstructive pulmonary disease) group B CREST syndrome DDD (degenerative disc disease) H/O cardiac arrest (~2014) 2014 s/p sustained VT, then symptomatic bradycardia, PEA arrest in setting of severe LV systolic dysfunction, Hyperkalemia, DVT/PE H/O steroid-induced myopathy History of blood transfusion 2014 History of CHF (congestive heart failure) History of DVT (deep vein thrombosis) right leg DVT/PE post-op (~2014) > IVC Filter placed History of migraine History of myocardial infarction (~10/2019) JEANINE x1 History of pulmonary embolism (~2014) post op > IVC Filter placed History of seizure (~2009) x 1, lost consciousness in [facility] ED, sent to [place], no further episodes, no neuro History of squamous cell carcinoma multiple, s/p excision Interstitial lung disease follow Pulm Dr. Romero 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 Hahn ([place]) Patient denies h/o stroke, or DM. Transplanted kidney is noted in [facility] EMR first entered by PCP 12/17/2021-patient denies any h/o kidney transplant. Exercise / Class Metabolic Activity II 4-5 Yardwork/Stairs/Walk up hill (denies chest discomfort or shortness of breath with 1 FOS) Past Family History Family History Other No family history of adverse response to anesthesia Past Surgical History Surgical History (Updated 09/04/23 @ 11:13 by Vianney Dia PA-C) H/O esophagogastroduodenoscopy H/O tracheostomy (~06/2014) (cardiac arrest that resulted in multiple intubations, trach, and PEG tube placement) > trach removed 09/2014 History of bone marrow transplant History of cardiac cath (~2019) x 2, drug eluding stent x 1 PCI mid RCA with single JEANINE (10/2019) Mild to moderate non-obstructive coronary artery disease with widely patent mid RCA stent per 05/04/20 cardiac cath- follows with Dr. 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[facility] Cardio records History of gastrointestinal surgery pt unsure-states was related to esophagus History of lumbar surgery History of Mohs micrographic surgery for skin cancer History of non-cataract eye surgery History of sinus surgery History of surgery (~2014) PEG tube, subsequent removal Hx of bilateral cataract extraction Hx of colonoscopy Hx of left inguinal hernia repair x 2, 2020 & 2021 S/P IVC filter S/P tonsillectomy Slow to wake up after anesthesia Past Anesthesia History No Family Hx of Anesthesia Complications and Other (slow to wake; h/o tracheostomy) History of PONV No Hx of PONV and No Hx of Motion Sickness Social History Smoking Status: Current every day smoker tobacco type: cigarettes Smoking cigarettes per day: 1/2 PPD (advised) Do You Dip or Chew Tobacco: No Hx Alcohol Use: Yes Alcohol type: beer alcohol intake frequency: a few times a week Hx Substance Use: No substance use type: does not use Review of Systems Patient denies chest pain, shortness of breath, dyspnea on exertion, snoring, witnessed apneas, reflux, fever, chills, cough, wheezing, or palpitations. Physical Exam Vital Signs Vitals BP 143/84 P 66 TEMP 98.3 SP02 98% on RA RESP 18 Physical Patient resting comfortably in chair in no acute distress, alert and oriented, responding appropriately throughout visit Full cervical extension range of motion without pain TMD 3.5 finger breadths Mallampati Score 3 Dentition: several caps/crowns; denies chipped or loose teeth, implants or bridges Lungs: normal respiratory effort. Good air movement, clear throughout to auscultation, no adventitious breath sounds Cardiac: regular rate and rhythm, no murmurs noted Carotid arteries: negative bruit bilat Lab Results Anesthesia Preop Results Results Anesthesia Widget: WBC 8.43 K/ul (4.8-10.8) 09/04/23 Hgb 12.9 g/dl (14.0-18.0) L 09/04/23 Hct 38.1 % (42.0-52.0) L 09/04/23 Plt 275 K/uL (130-400) 09/04/23 Na 135 mmol/L (136-145) L 09/04/23 K 4.4 mmol/L (3.5-5.1) 09/04/23 Cl 105 mmol/L (98-107) 09/04/23 CO2 23 mmol/L (21-32) 09/04/23 BUN 18 mg/dl (6-23) 09/04/23 Creat 1.41 mg/dl (0.6-1.4) H 09/04/23 Glucose Level 77 mg/dl (70-99(Fasting)) 09/04/23 PT 10.5 Seconds (9.0-12.0) 09/04/23 PTT 35 Seconds (21-31) H 09/04/23 INR 1.0 (0.9-1.1) 09/04/23 Blood Type O Positive 09/04/23 Antibody Screen NEGATIVE 09/04/23 Testing Electrocardiogram Date: 09/04/23 NSR, rate 62 bpm Incomplete RBBB T wave abnormality, consider inferior ischemia T wave inversion less evident in anterior leads vs 05/04/2020 EKG Echocardiogram Date: 07/09/23 EF 55-59% Small sized basal inferior and posterior wall motion abnormality with mild hypokinesis to hypokinesis of the segments Mild mitral regurgitation Mild tricuspid regurgitation No evidence of pulmonary hypertension Cardiac Catheterization Date: 05/04/20 LM -Short, large caliber LAD -large caliber, angiographically normal, wraps around apex. First and second diagonal without significant disease. Circumflex -medium caliber vessel, 40% mid segment disease. OM1, OM 2 without significant disease. RCA -dominant, large caliber vessel, mid RCA stent widely patent, distal vessel without significant disease. Mild to moderate non-obstructive coronary artery disease - 40% mid circumflex - Widely patent mid RCA stent Other Testing Chest CT 10/16/22 Pulmonary fibrotic changes in a UIP/IPF pattern.
--- NOTE | 2023-09-19 13:46 | History & Physical Report ---
Date of Service September 19, 2023 Assessment & Plan (1) Right knee DJD: 63-year-old gentleman with multiple medical comorbidities with right medial knee pain secondary to avascular necrosis medial femoral condyle and progressive knee arthritis previous failed conservative measures. He would like to have his righ t knee replaced. Plan: Leticia taken the operating do a right total knee replacement. The risks Mente this procedure explained the patient include but not limited to DVT PE infection neurological and vascular bleeding palm pain limb range of motion this is fairly of symptoms incomplete relief of symptoms excetra. Patient understands and desires to proceed. Informed consent was obtained. He does have multiple medical comorbidities. He is got a cardiac appointment today that ease can get clearance. Will see what they have to say. He is planned to be stay in the hospital least overnight. He is think about being discharged to rehab facility versus his sister coming assist in his care. He does have a history of a DVT in the past and has an IVC filter in place. Will use Xarelto for DVT prophylaxis along with the filter. History of Present Illness Chief Complaint: . Right medial knee pain and discomfort. Primary Care Provider: Jeff Davis DO . Patient is a 63-year-old gentleman friend of Dr. Walton who presents for jaycee gical treatment of his right knee. He has about a 3 to 4-year history of increasing right knee pain discomfort is gradually gotten worse over time. We have diagnosed with avascular necrosis medial femoral condyle and treated conservatively. This become less and less successful over time. Is got multiple medical issues. He is having trouble getting around due to pain. He gets swelling. Pain is all medial. Would like to have something done surgically. Shots have not been helpful lately. Allergies Allergy/AdvReac Type Severity Reaction Status Date / Time levofloxacin Allergy Severe Scleroderma Verified 08/22/23 09:15 flare sulfamethoxazole Allergy Severe Anaphylaxis, Verified 08/22/23 09:15 "very sick" trimethoprim Allergy Severe Anaphylaxis, Verified 08/22/23 09:15 "very sick" celecoxib Allergy Intermediate Hives, rash Verified 08/22/23 09:15 hydroxychloroquine AdvReac Severe toxicity Verified 09/04/23 11:33 cephalexin AdvReac Intermediate myalgias Verified 09/04/23 11:33 Home Medications Medication Instructions Recorded Confirmed Type bupropion HCl 150 mg tablet,12 hr 150 mg PO BID 06/26/18 08/22/23 History sustained-release lorazepam 0.5 mg tablet 0.5 mg PO DAILY PRN anxiety/sleep 06/26/18 08/22/23 History oxycodone 5 mg tablet 5 mg PO BID PRN pain 06/26/18 08/22/23 History prednisone 1 mg tablet 2 mg PO QAM 06/26/18 08/22/23 History montelukast 10 mg tablet 10 mg PO QAM 11/23/19 08/22/23 History aspirin 81 mg tablet,delayed 81 mg PO QAM #30 tabs 11/24/19 08/22/23 Rx release nitroglycerin 0.4 mg sublingual 0.4 mg sublingual UD PRN chest 11/24/19 08/22/23 Rx tablet (Nitrostat) pain #15 tabs albuterol sulfate 90 mcg/actuation 2 puff inhalation Q4H PRN sob 08/22/23 08/22/23 History aerosol inhaler atorvastatin 20 mg tablet 20 mg PO Q OTHER DAY 08/22/23 08/22/23 History mycophenolate sodium 360 mg 360 mg PO BID 08/22/23 08/22/23 History tablet,delayed release nintedanib 150 mg capsule (Ofev) 150 mg PO Q12H 08/22/23 08/22/23 History pantoprazole 40 mg tablet,delayed 40 mg PO QAM 08/22/23 08/22/23 History release Wheeled Walker #1 ea 09/15/23 Rx Past Med/Surg History Medical History CKD (chronic kidney disease) stage 3, GFR 30-59 ml/min COPD (chronic obstructive pulmonary disease) group B CREST syndrome History of blood transfusion 2013 History of seizure (~2009) x 1, lost consciousness in [facility], sent to [place], no further episodes, no neuro Interstitial lung disease follow Pulm Dr. Romero [facility] [place] Osteoporosis DDD (degenerative disc disease) Chronic steroid use Anxiety and depression History of migraine History of CHF (congestive heart failure) CAD (coronary artery disease) PCI mid RCA with single JEANINE (10/2019) Mild to moderate non-obstructive coronary artery disease with widely patent mid RCA stent per 05/04/20 cardiac cath. Plavix discontinued by cardiology 11/2020 after completion of one year post stent placement. Sees Dr. Sharon Flores History of myocardial infarction (~10/2019) JEANINE x1 Scleroderma follows with Dr. 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 Sharon Flores History of gastrointestinal surgery pt unsure-states was related to esophagus History of surgery (~2014) PEG tube, subsequent removal Slow to wake up after anesthesia History of non-cataract eye surgery History of Mohs micrographic surgery for skin cancer History of lumbar surgery H/O esophagogastroduodenoscopy S/P IVC filter H/O tracheostomy (~06/2014) (cardiac arrest that resulted in multiple intubations, trach, and PEG tube placement) > trach removed 09/2014 S/P tonsillectomy History of bone marrow transplant Family History Other No family history of adverse response to anesthesia Social History Smoking Status: Current every day smoker Tobacco Type: Cigarettes Cigarettes Per Day: 1/2 PPD (advised); Second Hand Exposure: No; Do You Dip or Chew Tobacco: No; Hx Alcohol Use: Yes Alcohol type: beer Hx Substance Use: No Preferred Language: Dutch Communication Ability: Effective Air Press Operator Required: No Beliefs That Will Affect Care: None Current Living Situation: Spouse Feels Safe at Home: Yes Assistive Devices: Glasses Review of Systems All systems reviewed & are unremarkable except as noted in HPI & below. Physical Exam . Physical examination reveals a thin pleasant middle-aged gentleman. Looks a little bit older than his stated age. Examination of the left knee arms are examination of the right knee reveals varus alignment to his knee. He ambulates with a bit of a limp he is got a little bit of a varus thrust with weightbearing. Small knee effusion. Range of motion about 5-1 25. No instability. No particular pain with hip motion. Constitutional WD/WN, vitals as above Neck trachea midline, no thyromegaly Respiratory normal respiratory effort, lungs clear to auscultation Cardiovascular RRR, no murmur, no edema Gastrointestinal (Abdomen) normal bowel sounds, soft, nontender, no hepatosplenomegaly Results & Data Results & Data Laboratory Results . Diagnostic Findings . X-rays of the right knee were reviewed. It shows a pretty significant area of avascular necrosis of the medial femoral condyle. Is got some degree of collap se. Other areas suggestive of osteonecrosis as well. PG Care Time/CCT Total # of Minutes Spent Total Time Spent with Patient: Total time spent is greater than 50% in coordination of care (as documented) at patient's floor/unit and/or counseling patient: Coding Level of Care Code None Diagnoses Right knee DJD M17.11
[~2023-09-26 09:19] MED LIST changes: -ALBINS/ INH; +BUPIVACAINE 0.5 % 5 MG/1 ML PF 10ML VIAL ONE; -BUPR-79 PO; -CALC500C70 PO; -HYDR200T5 PO; -LORA-741 PO; -MELA1TAB5 PO; -METO-478 PO; -METO5TAB2 PO; -ONDA-170 PO; -OXYC-90 PO; -PRD/1 PO; +ROPIVACAINE 0.5% 5 MG/ML 30 ML VIAL ONE; -SILD1TAB25 PO; -VNTHFA/IN INH
[2023-09-26] MEDS ORDERED: BUPIVACAINE 0.25% PF 30 ML VIAL ONE (09:24)
[2023-09-26] MEDS ORDERED: PHENYLEPHRINE 100MCG/ML 10ML SYR IV ONE (09:48)
[2023-09-26] MEDS ORDERED: PROPOFOL IV EMULSION 10 MG/ML 20 ML VIAL IV ONE (09:48)
[2023-09-26] MEDS ORDERED: MIDAZOLAM HCL 1 MG/ML 2ML VIAL ONE (09:48)
[2023-09-26] MEDS ORDERED: ePHEDrine sulfate 50 MG/5 ML SYR ONE (09:48)
[2023-09-26] MEDS ORDERED: ONDANSETRON INJ 2 MG/ML 2 ML VIAL ONE (09:48)
[2023-09-26] MEDS ORDERED: ATROPINE SULFATE 0.1 MG/ML 10ML SYR IV PRN (09:56)
[2023-09-26] MEDS ORDERED: ePHEDrine sulfate 50 MG/ML AMP IV PRN (09:56)
[2023-09-26] MEDS ORDERED: ONDANSETRON INJ 2 MG/ML 2 ML VIAL IV PRN (09:56)
[2023-09-26] MEDS ORDERED: fentaNYL citrate PF 100 MCG/2 ML VIAL IV PRN (09:56)
[2023-09-26] MEDS: METOCLOPRAMIDE HCL 10 MG TABLET PO SCH (10:05)
[2023-09-26] MEDS: FAMOTIDINE 20 MG TAB PO SCH (10:05)
[2023-09-26] MEDS: LR 500ML BOLUS, THEN 15ML/HR IV SCH (10:06)
[2023-09-26] MEDS: ACETAMINOPHEN 500 MG TAB PO SCH ×2 (10:06→15:28)
[2023-09-26] MEDS: LR 60ML/HR IV SCH (10:06)
--- NOTE | 2023-09-26 10:39 | History & Physical Bridge Note ---
Date of Service September 26, 2023 History & Physical Bridge Note I have examined the patient, reviewed the History & Physical and in the interval since the performance of the History & Physical I have noted the following changes of clinical significance: no changes noted
[2023-09-26] MEDS: ceFAZolin 2000MG 2,000 MG/15 ML SYR IV SCH (10:50)
[2023-09-26] MEDS ORDERED: DEXAMETHASONE SOD INJ 4 MG/ML VIAL ONE (11:18)
[2023-09-26] MEDS: ORTHO JOINT ANESTHETIC ONE (11:22)
[2023-09-26] MEDS: ROPIV 0.5% 246mg, Ketorolac 30mg, EPINEPHrine 0.5mg in NSS INFIL SCH (11:39)
[2023-09-26] MEDS: TRANEXAMIC ACID 1,000 MG **IV Intra-op IV SCH (11:52)
--- NOTE | 2023-09-26 12:46 | Operative Report ---
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 He had a large area of obviously necrotic area with collapse. Her varus deformity to his knee. Moderate-sized joint effusion. Specimens Right knee sent for pathology. 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 He did develop increased pain discomfort in his right knee over the years. He been treated conservatively which became less successful. X-rays show collapse of the medial femoral condyle consistent with a large area of AVN. He had a significant varus deformity to his knee. They failed conservative measures and elected proceed with total knee arthroplasty. Description of Procedure Operative implants consist of: 1. Biomet Vanguard size 67.5 right posterior stabilized femoral component. 2. Biomet size 71 tibial tray. 3. 10 mm posterior stabilized polyethylene insert. 4. 31 x 8 all poly patella. The patient was taken the operating, identified, placed on the operating table in the supine position. All contact areas were appropriately padded. IV antibiotics tried by anesthesia team. Spinal anesthetic had been implemented on the holding area along with an adductor canal block. A right thigh tourniquet was then placed. The right lower extremities then prepped and draped in usual sterile fashion. The right leg was elevated exsanguinated with use of an Esmarch and a turn was placed at 3 mmHg. An anterior approach to the right knee was then performed through a longitudinal incision centered over the patella. Sharp dissection carried through subcutaneous tissue down the extensor mechanism. A medial parapatellar arthrotomy incision was made. Some subperiosteal dissection was carried out medially. The fat pad was resected from Neath patella tendon. The lateral patellofemoral ligament was released. Patella subluxated laterally and the knee was flexed. The osteophytes taken on distal femur. The ACL and PCL were then released from distal femur and the tibia subluxated anteriorly. I tried to use the external tibial alignment jig but was then able to get it underneath the patella tendon due to the multiple ossicles. Therefore we had to go to an IM cutting guide. The tibial eminence was resected. The IM cutting daren was placed. The cutting guide was attached. The proximal tibial cut was made remove about 4 mm of bone from the medial side. The tibia was sized to a size 71. Attention drawn the femur. The distal femur examined the sharp drop with intramedullary canal was suction. A right 6 degree valgus cutting guide was placed. The distal femoral cutting block was pinned in place. Distal femoral cut was made take an additional 3 mm of bone off distal femur. The femur was then sized to a size 67.5. The AP cutting block was pinned parallel to the epicondylar axis which was 4 degrees of external rotation. The anterior cut, anterior chamfer, posterior cut, posterior chamfer cuts were made. The box cutting guide was placed in just slight lateral and the box cut was made. The knee was flexed. The remnants of the medial and lateral menisci were excised. The osteophytes taken off the posterior aspect the femur. Trial femoral component was placed. The tibial tray was pinned Catherine external rotation and the drill and stem punch used to create defect in proximal tibia for the tibial tray. Knee was then trialed the 10 mm insert fit most appropriately. Attention drawn the patella. The patella was cleaned of all soft tissues. Patella thickness measured 23 mm in thickness was cut down to 14. Was sized to a size 31 patella. The lug holes were drilled for the 31 patella. The lateral osteophyte was removed. Patella button was placed. Knee was taken through range of motion patella tracked nicely with no thumbs test. Attention drawn to placing permanent components. Nupathe all trial components were removed. Bone plug was placed in the distal femur limit blood loss. Double batch Palacos G cement was mixed. BiomShunra Software[employer] size 67.5 right posterior stabilized femoral component, size 71 tibial tray, 10 mm post stabilized polyethylene insert, and a 31 x 8 all poly patella then cemented in place. The knee was brought out into full extension till cement hardened. Final cement check was then performed. The pericapsular tissues were injected with total of 100 cc of orthopedic joint mix. Patient did receive 1 g tranexamic acid. The tourniquet was let down for final tourniquet time 57 minutes. Hemostasis assured use electrocautery. Extensor Meclomen closed with combination 1 PDS suture #1 Vicryl suture in a [id number] fashion. Extensor Meclomen checked found to be intact in the subcutaneous tissues then closed with 2 Dexon suture in a buried interrupted fashion skin was closed skin maximino. Leg was then cleaned and dried and sterile dressing with Xeroform, 4 fours, sterile cast padding, Joshua bandage were applied. Patient then transferred to the recovery room in stable condition. Patient tolerated procedure well and there were no complications. Edgar Wallace, my physician assistant director of admissions, was present for the entire procedure. His assistance was essential and required for appropriate patient positioning, prepping and draping, surgical exposure, performing the technical details of the operation, placement the implants, closure of the wound, and placement of the sterile bandage. I attest to the content of the Intraoperative Record and any orders documented therein. Any exceptions are noted below.
--- NOTE | 2023-09-26 13:14 | XRay Report ---
TWO VIEWS RIGHT KNEE CLINICAL HISTORY: Postoperative examination. FINDINGS: AP and crosstable lateral portable views of the right knee are obtained. A right knee arthr oplasty is in near anatomic alignment. There has been undersurface remodeling of the patella. No acut e fracture is seen. There are expected postoperative changes around the knee including skin clips, so ft tissue edema, and subcutaneous gas. IMPRESSION: Expected postoperative changes status post right knee arthroplasty. No acute fracture is seen. ACT 112: Negative or not required by law. Electronically signed by: Chaparro Cuenca M.D. 09/26/2023 1:13 PM
[2023-09-26] MEDS ORDERED: NO NSAIDS SCH (13:49)
[2023-09-26] MEDS ORDERED: bisacodyL 10 MG SUPP PR PRN (13:49)
[2023-09-26] MEDS ORDERED: NALOXONE HCL 0.4 MG/1 ML VIAL/CARP IV PRN (13:49)
[2023-09-26] MEDS ORDERED: TAMSULOSIN HCL 0.4 MG CAP PO PRN (13:49)
[2023-09-26] MEDS ORDERED: METOCLOPRAMIDE HCL INJ 5 MG/ML 2 ML VIAL IV PRN (13:49)
[2023-09-26] MEDS ORDERED: MAGNESIUM HYDROXIDE SUSP 30 ML UDC PO PRN (13:49)
[2023-09-26] MEDS ORDERED: NITROGLYCERIN SL 0.4 MG/TAB TAB SL PRN (13:49)
[2023-09-26] MEDS ORDERED: LORazepam 0.5 MG TAB PO PRN (13:49)
[2023-09-26] MEDS ORDERED: ALBUTEROL HFA 8 GM INHALER INH PRN (13:49)
[2023-09-26] MEDS ORDERED: ALUMINUM/MAGNESIUM SUSP 30 ML UDC PO PRN (13:49)
--- NOTE | 2023-09-26 14:02 | Anesthesiology Progress Note ---
Date of Service September 26, 2023 Anesthesia Post Procedure Vital Signs Vital Signs: Temp Pulse Pulse Resp BP Pulse Ox O2 Del Method 09/26/23 13:59 36.5 C 67 16 134/78 93 Room Air 09/26/23 13:30 36.3 C L 67 16 119/70 93 Room Air 09/26/23 13:05 36.3 C L 74 15 111/65 98 Room Air 09/26/23 12:55 69 21 108/64 94 Room Air 09/26/23 12:45 63 18 109/60 100 Oxymask 09/26/23 12:37 36.1 C L 68 16 105/62 100 Oxymask 09/26/23 09:53 36.4 C L 73 20 127/80 96 Room Air O2 Flow Rate 09/26/23 13:59 09/26/23 13:30 09/26/23 13:05 09/26/23 12:55 09/26/23 12:45 10 09/26/23 12:37 10 09/26/23 09:53 Transfer of Care Handoff Completed per policy Notes Mental Status: alert / awake / arousable and participated in evaluation Patient Amnestic to Procedure: Yes Nausea / Vomiting: adequately controlled Pain: adequately controlled Airway Patency, RR, SpO2: stable & adequate BP & HR: stable & adequate Hydration State: stable & adequate Neuraxial Anesthesia: was administered and sensory block is resolving Anesthetic Complications: no major complications apparent and Pt Satisfied with anesthetic care
[2023-09-26] MEDS: SODIUM CHLORIDE 0.9% 1,000 ML IV SCH (14:27)
[2023-09-26] MEDS: ALLERGY Noted to ORDERED Medication SCH (14:41)
[2023-09-26] MEDS: ASCORBIC ACID 500 MG TAB PO SCH (18:16)
[2023-09-26] MEDS: TRANEXAMIC ACID / 0.7% NACL 1,000 MG/100 ML BAG IV SCH (18:17)
[2023-09-26] MEDS: oxyCODONE HCL IR 5 MG TAB (IMMEDIATE RELEASE) PO PRN (18:24)
[2023-09-26] MEDS: ceFAZolin 1000MG 1,000 MG/7.5 ML SYR IV SCH (19:43)
[2023-09-26] MEDS ORDERED: NINTEDANIB ESYLATE 150 MG CAPSULE PO SCH ×2 (21:00)
[2023-09-26] MEDS: HYDROmorphone INJ 0.5 MG/0.5 ML SYR IV PRN (21:38)
[2023-09-26] MEDS: azaTHIOprine 50 MG TAB PO SCH (21:39)
[2023-09-26] MEDS: buPROPion SR 150 MG TABCR PO SCH (21:39)
[2023-09-26] MEDS: DOCUSATE SODIUM 100 MG CAP PO SCH (21:39)
[2023-09-26] MEDS: SENNA 8.6 MG TAB PO SCH (21:39)
[2023-09-26] MEDS: NINTEDANIB ESYLATE 100 MG CAPSULE PO SCH (22:51)
[2023-09-27 07:32] LABS: Hematocrit (blood only) 35.4 % (42.0-52.0); Hemoglobin 11.1 g/dl (14.0-18.0); Mean Corpuscular Hemoglobin 33.2 pg (25.0-34.0); Mean Corpuscular Hgb Conc 31.4 g/dL (32.0-36.0); Mean Platelet Volume 9.3 fL (9.4-12.4); Platelet Count 308 K/uL (130-400); RDW Standard Deviation 49.7 fL (36.4-46.3); Red Blood Count 3.34 M/uL (4.70-6.10); White Blood Count 13.45 K/ul (4.8-10.8)
[2023-09-27] MEDS: PANTOprazole 40 MG TAB PO SCH (07:36)
[2023-09-27] MEDS: ASPIRIN 81 MG ECTAB PO SCH (07:36)
[2023-09-27] MEDS: MULTIVITAMIN TAB PO SCH (07:36)
[2023-09-27] MEDS: azaTHIOprine 50 MG TAB PO SCH (07:37)
[2023-09-27] MEDS: MONTELUKAST SODIUM 10 MG TABLET PO SCH (07:37)
[2023-09-27] MEDS: dexAMETHasone 10 MG in SYRINGE 0 ML IV SCH (07:37)
[2023-09-27] MEDS: predniSONE 1 MG TAB PO SCH (07:37)
[2023-09-27 07:44] LABS: BUN Creatinine Ratio 11.6 (10-20); Calcium 8.2 mg/dl (8.6-10.3); Creatinine Clr Calc Pharmacy 47.8 ml/min
--- NOTE | 2023-09-27 08:17 | Surgery Progress Note ---
Date of Service September 27, 2023 Assessment & Plan (1) Status post right knee replacement: Plan: 63-year-old gentleman with multiple medical comorbidities postop day 1 from right knee replacement doing pretty well. Pain is controlled. He is neurologically intact. He does have a history of a DVT in the past. Plan: 1. DVT prophylaxis including thigh-high teds, SCDs, Xarelto to start 24 hours postop. 2. PT/OT. Weight-bear as tolerated right total knee protocol. 3. Pain control doing okay with current pain regimen. 4. Disposition he is hoping to be discharged to [facility]. Will get social media campaign manager working on that today. He may need a several nights stay in the hospital depending on insurance issues. (2) History of DVT (deep vein thrombosis): Admission and Anticipated Discharge Date Admission Date: September 26, 2023 Subjective 63-year-old gentleman postop day 1 from right knee replacement. He is doing pretty well. Pains controlled. Had pretty good night. He has been up walking the hallways. He is hoping to go to rehab as he lives alone. Physical Exam Physical Exam: Physical examination was a pleasant middle-age male. Sitting by his bed and looks quite comfortable this morning. Emanation the right leg reveals a dressi ng clean dry and intact he can dorsiflex and plantarflex his foot appropriately. He is neurologically intact. Respiratory: normal respiratory effort, lungs clear to auscultation Cardiovascular: RRR, no murmur, no edema Gastrointestinal (Abdomen): normal bowel sounds, soft, nontender, no hepatos plenomegaly Results & Data Vital Signs (Past 12 Hours) Vital Signs Temp Pulse Pulse Resp BP Pulse Ox O2 Del Method 09/27/23 07:26 36.5 C 74 18 142/77 H 97 Room Air 09/26/23 23:05 36.4 C 79 18 164/82 H 98 Room Air Laboratory Results Hemoglobin is 11.1. Hematocrit 35.4. Electrolytes are stable. PG Care Time/CCT Total # of Minutes Spent Total Time Spent with Patient: Total time spent is greater than 50% in coordination of care (as documented) at patient's floor/unit and/or counseling patient: Coding Level of Care Code 10045 Post Operative Follow-Up Diagnoses Status post right knee replacement Z96.651 History of DVT (deep vein thrombosis) Z86.718
--- NOTE | 2023-09-28 07:44 | Surgery Progress Note ---
Date of Service September 28, 2023 Assessment & Plan (1) Status post right knee replacement: Plan: 63-year-old gentleman with multiple medical comorbidities postop day 2 from right knee replacement. He is doing pretty well. Little bit more sore today which is an expected. Plan: 1. DVT prophylaxis including thigh-high teds, SCDs, and Xarelto for 30 days due to his history of a DVT in the past. 2. PT/OT. Weight-bear as tolerated. Right total knee protocol. 3. Pain control doing okay with current pain regiment 4. Disposition just wait for decision on rehab. Hopefully will know a lot tomorrow. Admission and Anticipated Discharge Date Admission Date: September 26, 2023 Subjective 63-year-old gentleman postop day 2 from right knee replacement. His knee is a bit more sore today. No new complaints. No chest pain or shortness of breath. Not feeling dizzy or lightheaded. Just waiting for decision on rehab placement. Physical Exam Physical Exam: Physical examination was a pleasant middle-age male. Sitting in his bedside chair looks pretty comfortable. Examination of the right leg reveals leg to be well aligned. Dressings clean dry and intact. No drainage. He can dorsiflex and plantarflex his foot appropriately. He is neurologically intact. Results & Data Vital Signs (Past 12 Hours) Vital Signs O2 Del Method 09/27/23 21:15 Room Air PG Care Time/CCT Total # of Minutes Spent Total Time Spent with Patient: Total time spent is greater than 50% in coordination of care (as documented) at patient's floor/unit and/or counseling patient: Coding Level of Care Code 98441 Post Operative Follow-Up Diagnoses Status post right knee replacement Z96.651
[2023-09-28] MEDS: ATORVASTATIN 20 MG TAB PO SCH (07:53)
--- OUTSIDE RECORDS SUMMARY | 2023-09-28 11:03 | External Medical Summary | Summary of Care ---
Author Name Unknown Organization [facility] Address [address] [facility] [place] [address] Phone [phone] Care Team Providers Care Ingot Passer Name Role Phone Ryan Jeff Sheramerica Primary Care Provider Reason for Visit * Reason Onset Date Comments Appointment 09/08/2023 Encounter Details Date Type Department Care Team (Late st Contact Info) Description 09/08/2023 Telephone Cardiology, [facility] [address] [place] [address] Mey Arzate PA-C [address] [place] [address] Appointment Allergies Active Allergy Reactions Criticality Noted Date Comments Sulfamethoxazole-Trimethopr im Rash 12/26/2010 Celecoxib 12/19/2010 Hives Cephalexin 11/11/2017 Body aches Hydroxychloroquine Other (Please comment) 08/05/2022 Redness and burning sensation to face and hands/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 Levofloxacin Other (Please comment) High 07/23/2017 Tendonitis, connective tissue problems Sulfa Antibiotics Edema Other 05/09/2014 documented as of this encounter (statuses as of 09/11/2023) Medications Medication Sig Dispensed Refills Start Date End Date Status PREDNISONE 10 MG PO TABSIndications:Acut e serous otitis media Take 5 tablets daily for 3d, 3 daily x 2d, 1daily x 2d 23 Tab 0 08/14/2011 Active Additional Information Patient not taking.Reported on 07/29/2023 PREDNISONE 20 MG PO TABSIndications:Scle roderma (HCC),Diffuse connective tissue disease (HCC) 3 daily x 5d, 2 daily x 5d, 1 daily x 5d 30 Tab 0 09/25/2012 Active Sildenafil Citrate 20 MG Oral Tablet Take 1 Tablet by mouth daily as needed for Erectile Dysfunction. 0 Active nitroglycerin (NITROSTAT) 0.[address] 1 Tablet under the tongue every 5 minutes as needed for Pain, Chest. 0 11/24/2019 Active Triamcinolone Acetonide 0.1 % External Cream (ARISTOCORT) Apply topically to affected area 2 times a day. Apply to trunk, arms and legs two weeks x then break 80 g 0 05/08/2020 Active Additional Information Patient taking differently:TopicalPRN, Apply to trunk, arms and legs two weeks x then break, Reported on 04/30/2023 Aspirin 81 MG Oral Tablet Delayed ReleaseIndications:N on-ischemic cardiomyopathy (HCC),H/O right coronary artery stent placement Take 1 Tab by mouth daily. 90 Tab 5 02/20/2021 Active Benzonatate 100 MG Oral Capsule (Tessalon Perles) Take 1 Cap by mouth 3 times a day as needed for Cough. Do not cut, crush, or chew. 50 Cap 1 02/20/2021 Active Additional Information Patient not taking.Reported on 07/29/2023 buPROPion HCl ER (SR) 150 MG Oral Tablet Extended Release 12 Hour (Wellbutrin SR)Indications:Adjus tment disorder with depressed mood Take 1 Tablet by mouth in the morning and 1 Tablet before bedtime. 180 Tablet 1 11/27/2022 Active Metoprolol Succinate ER 25 MG Oral Tablet Extended Release 24 Hour (toPROL XL)Indications:Non-i schemic cardiomyopathy (HCC),H/O right coronary artery stent placement,HTN, goal below 140/90,Coronary artery disease involving anvik coronary artery of anvik heart without angina pectoris TAKE ONE TABLET BY MOUTH EVERY DAY 90 Tablet 3 09/17/2022 Active Additional Information Patient taking differently: 25 mg Oral Daily(AM), Pt takes 1 tablet three times weekly., Reported on 07/29/2023 predniSONE 1 MG Oral Tablet (Deltasone) Take 3 Tablets by mouth in the morning. 270 Tablet 3 12/26/2022 Active NIFEdipine ER 30 MG Oral Tablet Extended Release 24 Hour (Adalat CC)Indications:HTN, goal below 140/90 TAKE ONE TABLET BY MOUTH EVERY DAY 90 Tablet 2 03/16/2023 4 Active Montelukast Sodium 10 MG Oral Tablet (Singulair)Indicatio ns:Acute sinusitis, recurrence not specified, unspecified location TAKE ONE TABLET BY MOUTH EVERY DAY 90 Tablet 2 03/16/2023 4 Active Albuterol Sulfate HFA 108 (90 Base) MCG/ACT Inhalation Aerosol SolutionIndications: Exacerbation of intermittent asthma, unspecified asthma severity INHALE 2 PUFFS BY MOUTH EVERY 4 HOURS NEEDED FOR COUGH OR WHEEZING. 54 g 2 03/16/2023 4 Active Pantoprazole Sodium 40 MG Oral Tablet Delayed Release (Protonix) TAKE ONE TABLET BY MOUTH EVERY DAY 90 Tablet 1 03/24/2023 Active Atorvastatin Calcium 20 MG Oral Tablet (Lipitor)Indications :Non-ischemic cardiomyopathy (HCC),H/O right coronary artery stent placement,Dyslipidem ia, goal LDL below 70 TAKE ONE TABLET BY MOUTH EVERY DAY 90 Tablet 3 03/24/2023 Active Ofev 150 MG Oral Capsule (Nintedanib Esylate) Take by mouth 2 times a day. 0 Active Cholecalciferol 25 MCG (1000 UT) Oral Tablet Take 1 Tablet by mouth in the morning. 0 Active LORazepam 0.5 MG Oral Tablet (Ativan)Indications: Low back pain with sciatica, sciatica laterality unspecified, unspecified back pain laterality, unspecified chronicity Take 1 Tablet by mouth daily as needed for Anxiety. 30 Tablet 0 08/13/2023 Active oxyCODONE HCl 5 MG Oral Tablet (Oxy IR)Indications:Diffu se connective tissue disease (HCC) Take 1 Tablet by mouth every 4 hours as needed for Pain, Severe. 120 Tablet 0 08/13/2023 Active Mycophenolic Acid 360 MG Oral Tablet Delayed ReleaseIndications:B one marrow transplant status (HCC),Stem cells transplant status (HCC) Take 1 Tablet by mouth in the morning and 1 Tablet before bedtime. 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 0 12/31/2022 Stem cells transplant status 12/31/2022 Gastro-esophageal reflux disease without esophag itis 12/31/2022 Depression, unspecified 06/20/2022 Recurrent major depressive disorder 06/20/2022 Recurrent left inguinal hernia 02/20/2022 COPD, group B, by GOLD 2017 classification 12/31 Overview: Per COPD GOLD Classification Bone marrow transplant status 12/17/2021 Major depressive disorder with single episode History of DC (myocardial infarction) 12/17/2021 Myoneural disorder, unspecified 12/17/2021 Transplanted kidney 12/17/2021 History of cardiac arrest 11/29/2021 History of DVT (deep vein thrombosis) 11/29/2021 History of pathological fracture of vertebra 11/2021 Overview: Compression fracture Food insecurity 11/05/2021 Overview: Per [facility] Protocol Esophageal dyskinesia 06/13/2021 Multiple sclerosis 06/13/2021 Chronic kidney disease, stage 3a 07/31/2020 Overview: Per CKD protocol H/O right coronary artery stent placement 2019 Coronary artery disease invo lving anvik coronary artery of anvik heart without angina pectoris 02/09/2020 Dyslipidemia, goal LDL below 70 02/09/2020 Anemia assoc with myelodyspl astic syndrome treated with erythropoietin 09/10/2018 CREST syndrome 12/08/2017 HTN, goal below 140/90 12/08/2017 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 Myelodysplastic disease 03/20/2009 Pernicious anemia 01/06/2009 Diffuse connective tissue disease 11/15/2008 documented as of this encounter (statuses as of 09/11/2023) Resolved Problems Problem Noted Date Diagnosed Date Resolved Date Stage 3 chronic kidney disease 06/20/2022 07/24/2023 Osteoporosis 12/17/2021 12/31/2022 Chronic obstructive pulmonary disease 06/13/2021 01/03/2022 Overview: Per COPD GOLD Classification Other osteoporosis with curr ent pathological fracture 06/11/2017 06/12/2022 Osteoporosis 11/07/2014 06/11/2017 Vertebral compression fracture 11/07/2014 11/29/2021 Tracheostomy status 09/06/2014 10/21/[address] 09/06/2014 019 Pulmonary embolism 08/15/2014 9 Cardiac arrest 07/16/2014 11/29/2021 Acute respiratory failure with hypoxia 07/16/2014 09/10/2018 Heart failure, systolic, wit h acute decompensation 07/16/2014 12/26/2016 CHEMA (acute kidney injury) 07/16/2014 DVT (deep venous thrombosis) 07/16/2014 11/29/2021 Bone marrow transplant status 11/16/2013 09/10/2018 Cellulitis of leg, right 06/15/2012 Edema 10/28/2008 08/06/2010 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 10/27/2008 09/10/2018 Anemia 10/27/2008 08/06/2010 RIGHT HEART FAILURE 10/27/2008 05/11/20 14 Acute respiratory distress syndrome 10/25/2008 07/24/2023 INTERFACED RESULT 10/24/2008 10/24/2011 Tobacco use disorder 012 documented as of this encounter (statuses as of 09/11/2023) Immunizations Name Administration Dates Next Due COVID-19 mRNA, LNP-s, No Pre serve, 2-Dose Series (Moderna) 10/12/2021,08/24/2020,07/26/2020 COVID-19, mRNA, LNP-s, PF, B ooster, 100mcg/0.5mg (Moderna) 10/12/2021,04/10/2021 PPD 01/16/2016,01/07/2016 Pneumococcal Conjugate Vacc, 13 Valent (Prevnar) 04/19/2017 Pneumococcal Polysaccharide PPV23 (Pneumovax) 06/29/2019,10/29/2008 Seasonal Influenza, PF, 6 M & above, IM , (FluLaval or Fluzone) 02/01/2022,02/24/2021,06/07/2020,07/2018,04/19/2017 Seasonal Influenza, Split, I IV3, With Preserve, Inj 03/09/2012,03/19/2010 TDAP (age 11 and older)(Adacel) 07/21/2009 Zoster Vaccine Recombinant (Shingrix) 12/07/2018 ,09/10/2018 11/10/2018 documented as of this encounter Social History Tobacco Use Types Packs/Day Years Used Date Smoking Tobacco: Every Day Cigarettes 0.3 30 Started: 05/26/1987; Last attempted to quit: 05/26/2017 Smokeless Tobacco: Never Alcohol Use Standard Drinks/Week Comments Yes 0 (1 standard drink = 0.6 oz pur e alcohol) occasionally PHQ-2 Answer Date Recorded PHQ Adult Total Score 1 12/17/2021 Hunger Vital Sign Answer Date Recorded Within the past 12 months, y ou worried that your food would run out before you got the money to buy more. Sometimes true Within the past 12 months, t he food you bought just didn't last and you didn't have money to get more. Never true Sex and Gender Information Value Date Recorded Sex Assigned at Male 06/29/2019 8:18 AM EST Gender Identity Male 06/29/2019 8:18 AM EST Sexual Orientation Straight 06/29/2019 8: 18 AM EST Job Start Date Occupation Industry Not on file Not on file Not on file documented as of this encounter Functional Status Functional Status Response Date of Assess ment Are you deaf or do you have serious difficulty h earing? No 07/16/2014 Are you blind or do you have serious difficulty seeing, even when wearing glasses? No 07/16/2014 Do you have serious difficul ty walking or climbing stairs? (5 years old or older) Yes 07/16/2014 Do you have difficulty dress ing or bathing? (5 years old or older) No 07/16/2014 Because of a physical, menta l, or emotional condition, do you have difficulty doing errands alone such as visiting a doctor s office or shopping? (15 years old or older) Yes 07/16/19 15 Cognitive Status Response Date of Assessm ent Because of a physical, menta l, or emotional condition, do you have serious difficulty concentrating, remembering, or making decisions? (5 years old or older) No 07/16/2014 documented as of this encounter Miscellaneous Notes * Telephone Encounter - Syed Hernandez OSA - 09/10/2023 8:52 AM EDT Patient has been called and is aware of the date and time, and I stated that the appt will also show-up on his portal. Appt is for: Friday Arrive by 2:15 PMAppt at 2:30 PM (30 min) * Telephone Encounter - Syed Hernandez OSA - 09/08/2023 1:11 PM EDT Will schedule when CLOS RET/REL are open * Telephone Encounter - [employer] LPN - 09/08/2023 11:07 AM EDT Fax received from [facility]. Patient with upcoming Right total knee replacement with Dr. Morales- tentatively scheduled 09/26/23. Patient needs a pre op appointment. Scheduling please assist. documented in this encounter Plan of Treatment Upcoming Encounters Date Type Department Care Team (Late st Contact Info) Description 09/19/2023 2:30 PM EDT Office Visit Cardiology, [facility] [address] [place] [address] Mey Arazte PA-C [address] [place] [phone] 03/02/2024 11:40 AM EDT Office Visit Family Practice [facility] [address] [place] [address] Jeff Davis, DO [address] [place] [address] 08/30/2024 12:00 PM EDT Office Visit [facility] [address] [place] [address] Jeff Davis, DO [address] [place] [id number] Health Maintenance Due Date Last Done Comments DISCUSS TOBACCO CESSATION (REFER TO SMARTSET #3291) 1960 Colonoscopy 2004 Sigmoidoscopy 2004 DTaP,Tdap,and Td Vaccines (2 - Td or Tdap) 07/21/2019 07/21/2009 COVID-19 Vaccine (3 - Moderna risk series) 11/09/2021 10/12/2021, 10/12/2021, 04/10/2021, Additional history exists GFR 01/13/2024 07/15/2023, 0807/2022, 06/17/2022, Additional history exists Influenza Vaccine (FLU shot) (Season Ended) 2024 02/01/2022, 02/24/2021, 06/07/2020, Additional history exists Fecal Occult Blood Test 02/13/2024 02/13/20, 02/12/2023, 01/25/2022, Additional history exists CKD PHOS USE SMARTSET 52047 05/07/202404/25, 12/14/2021, 02/28/2021, Additional history exists Pneumococcal Vaccine: Pediatrics (0 to 5 Years) and At-Risk Patients (6 to 64 Years) (4 of 4 - PPSV23 or PCV20) 06/29/2024 06/29/2019, 04/19/2017, 10/29/2008 Albumin/Creatinine Ratio 07/15/2024 024, 12/26/2022, 06/17/2022, Additional history exists CKD HGB USE SMARTSET 34950 07/15/202407/15, 07/15/2023, 12/26/2022, Additional history exists O2 ASSESSMENT COMPLETED IN PAST YEAR FOR COPD 07/28/2024 07/29/2023 Cologuard 08/17/2025 08/17/2022, 07/24, 08/07/2022, Additional history exists Colorectal Cancer Screening 08/17/2025 Zoster Vaccines Completed 12/07/2018, 09/10/2018 DXA Scan Discontinued 06/21/2020, 11/23, 11/30/2014, Additional history exists Alpha-1 Antitrypsin Completed 06/17/2022 GARDASIL-HPV IMMUNIZATION SERIES Aged Out No longer eligible based on patient's age to complete this topic Hepatitis B Aged Out No longer eligi ble based on patient's age to complete this topic MENINGOCOCCAL (MENACTRA/MENVEO) Aged Out No longer eligible based on patient's age to complete this topic documented as of this encounter Medical Devices Implanted Type Area Survey Supervisor Device Identifier Shelf Expiration Date Model / Serial / Lot Filter Vasc Femoral Celect - [id number] Implanted:Qty: 1 on 07/20/2014 by Ricky Rod[place]guez [place] [facility] [place] Groin COOK : [employer] 10/24/2016 [id number] / / [id number] Mesh 3dmax Mid Lg Lt 4x6in - [id number] Implanted:Qty: 1 on 02/20/2022 by Martín Rubio MD at OR [facility] Left: Groin CR BARD : DAVOL 07/23/2026 [id number] / / [id number] documented as of this encounter Advance Directives Latest Code Status on File Code Status Date Activated Date Inactivated Comments Full Code 02/20/2022 9:23 AM 02/20/2022 8:44 PM Question Answer Comments Discussion of Advance Directives occurred with: Not Discussed due to patient's condition Does the patient have a Marylin ng Will? No Does the patient have Health Care Power of Research Center Director? No Code Status History Code Status Date Activated Date Inactivated Comments No Code 08/02/2014 2:53 PM 08/14/2014 8:17 PM This order reflects the patients wishes and were consensually agreed upon with who is patient's POA. Question Answer Comments Discussion of Advance Directives occurred with: Family Does the patient have a Living Will? Yes, in chart and reviewed as current Does the patient have Health Care Power of Research Center Director? Yes, in chart and reviewed as current Full Code 07/16/2014 2:36 PM 08/02/2014 2:53 PM This order reflects the patients wishes and were consensually agreed upon. Question Answer Comments Discussion of Advance Directives occurred with: Not Discussed Does the patient have a Living Will? No Does the patient have Health Care Power of Research Center Director? No Full Code 06/15/2012 11:06 AM 06/17/2012 9:34 PM This order reflects the patients wishes and were consensually agreed upon. Question Answer Comments Discussion of Advance Directives occurred with: Patient Does the patient have a Living Will? No Does the patient have Health Care Power of Research Center Director? No Full Code 10/28/2008 3:52 AM 10/29/2008 6:28 PM This or keri reflects the patients wishes and were consensually agreed upon. Question Answer Comments Discussion of Advance Directives occurred with: Patient Does the patient have a Living Will? No Does the patient have Health Care Power of Research Center Director? No Care Teams Ingot Passer Relationship Specialty Start Date End Date Jeff Davis DO [address] [place] [address] PCP - General Family Medicine 12/08/17 documented as of this encounter
--- OUTSIDE RECORDS SUMMARY | 2023-09-28 11:03 | External Medical Summary | Summary of Care ---
Author Name Unknown Organization [facility] Address [address] [place] [address] Phone [phone] Care Team Providers Care [employer]iconductor Testing Group Leader Name Role Phone Jeff Davis DO Primary Care Provider Reason for Visit * Reason Comments Medication Refill Encounter Details Date Type Department Care Team (Late st Contact Info) Description 09/19/2023 Refill Cardiology, [facility] [address] [place] [address] Luís Herrera DO [address] [place] [address] Non-ischemic cardiomyopathy (HCC); H/O right coronary artery stent placement; HTN, goal below 140/90; Coronary artery disease involving [place] coronary artery of [place] heart without angina pectoris Allergies Active Allergy Reactions Criticality Noted Date [...] as of this encounter (statuses as of 09/19/2023) Medications Medication Sig Dispensed Refills Start Date End Date Status PREDNISONE 10 MG PO TABSIndications:Acu te serous otitis media Take 5 tablets daily for 3d, 3 daily x 2d, 1daily x 2d 23 Tab 0 08/14/2011 Active Additional Information Patient not taking.Reported on 07/29/2023 PREDNISONE 20 MG PO TABSIndications:Scl eroderma (HCC),Diffuse connective tissue disease (HCC) 3 daily [...] 04/30/2023 Aspirin 81 MG Oral Tablet Delayed ReleaseIndications: Non-ischemic cardiomyopathy (HCC),H/O right coronary artery stent placement [...] Oral Tablet Extended Release 12 Hour (Wellbutrin SR)Indications:Adju stment disorder with depressed mood Take 1 Tablet by mouth in the morning and 1 Tablet before bedtime. 180 Tablet 1 11/27/2022 Active predniSONE 1 MG Oral Tablet (Deltasone) Take 3 Tablets by mouth in the morning. 270 Tablet 3 12/26/2022 Active NIFEdipine ER 30 MG Oral Tablet Extended Release 24 Hour (Adalat CC)Indications:HTN, goal below 140/90 TAKE ONE TABLET BY MOUTH EVERY DAY 90 Tablet 2 03/16/2023 4 Active Montelukast Sodium 10 MG Oral Tablet (Singulair)Indicati ons:Acute sinusitis, recurrence not specified, unspecified location TAKE ONE TABLET BY MOUTH EVERY DAY 90 Tablet 2 03/16/2023 4 Active Albuterol Sulfate HFA 108 (90 Base) MCG/ACT Inhalation Aerosol SolutionIndications :Exacerbation of intermittent asthma, unspecified asthma severity INHALE 2 PUFFS BY MOUTH EVERY 4 HOURS NEEDED FOR COUGH OR WHEEZING. 54 g 2 03/16/2023 4 Active Pantoprazole Sodium 40 MG Oral Tablet Delayed Release (Protonix) TAKE ONE TABLET BY MOUTH EVERY DAY 90 Tablet 1 03/24/2023 Active Atorvastatin Calcium 20 MG Oral Tablet (Lipitor)Indication s:Non-ischemic cardiomyopathy (HCC),H/O right coronary artery stent placement,Dyslipide zeenat, goal LDL below 70 TAKE ONE TABLET BY MOUTH EVERY DAY 90 Tablet 3 03/24/2023 Active Ofev 150 MG Oral Capsule (Nintedanib Esylate) Take by mouth 2 times a day. 0 Active Cholecalciferol 25 MCG (1000 UT) Oral Tablet Take 1 Tablet by mouth in the morning. 0 Active LORazepam 0.5 MG Oral Tablet (Ativan)Indications :Low back pain with sciatica, sciatica laterality unspecified, unspecified back pain laterality, unspecified chronicity Take 1 Tablet by mouth daily as needed for Anxiety. 30 Tablet 0 08/13/2023 Active Mycophenolic Acid 360 MG Oral Tablet Delayed ReleaseIndications: Bone marrow transplant status (HCC),Stem cells transplant status (HCC) Take 1 Tablet by mouth in the morning and 1 Tablet before bedtime. 180 Tablet 3 08/28/2023 Active oxyCODONE HCl 5 MG Oral Tablet (Oxy IR)Indications:Diff use connective tissue disease (HCC) Take 1 Tablet by mouth every 4 hours as needed for severe Pain 120 Tablet 0 09/16/2023 Active Metoprolol Succinate ER 25 MG Oral Tablet Extended Release 24 Hour (toPROL XL)Indications:Non- ischemic cardiomyopathy (HCC),H/O right coronary artery stent placement,HTN, goal below 140/90,Coronary artery disease involving [place] coronary artery of [place] heart without angina pectoris TAKE ONE TABLET BY MOUTH EVERY DAY 90 Tablet 3 09/19/2023 5 Active Metoprolol Succinate ER 25 MG Oral Tablet Extended Release 24 Hour (toPROL XL)Indications:Non- ischemic cardiomyopathy (HCC),H/O right coronary artery stent placement,HTN, goal below 140/90,Coronary artery disease involving [place] coronary artery of [place] heart without angina pectoris TAKE ONE TABLET BY MOUTH EVERY DAY 90 Tablet 3 09/17/2022 Discontinu ed(Refill) documented as of this encounter (statuses as of 09/19/2023) Active Problems Problem Noted Date Diagnosed Date Systemic sclerosis with lung involvement 024 Systemic sclerosis 07/29/2023 ILD (interstitial lung disease) 07/29/2023 Hypertensive kidney disease with stage 3a chronic kidney disease 07/24/2023 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 0 12/31/2022 Stem cells transplant status 12/31/2022 Gastro-esophageal reflux disease without esophag itis 12/31/2022 Depression, unspecified 06/20/2022 Recurrent major depressive disorder 06/20/2022 Recurrent left inguinal hernia 02/20/2022 COPD, group B, by GOLD 2017 classification 12/31 Overview: Per COPD GOLD Classification Bone marrow transplant status 12/17/2021 Major depressive disorder with single episode History of [place] (myocardial infarction) 12/17/2021 Myoneural disorder, unspecified 12/17/2021 [...] placement 2019 Coronary artery disease invo lving [place] coronary artery of [place] heart without angina pectoris 02/09/2020 Dyslipidemia, goal [...] as of this encounter (statuses as of 09/19/2023) Resolved Problems Problem Noted Date Diagnosed Date [...] as of this encounter (statuses as of 09/19/2023) Immunizations Name Administration Dates Next Due COVID-19 mRNA, LNP-s, No Pre serve, 2-Dose Series (Moderna) 10/12/2021,08/24/2020,07/26/2020 COVID-19, mRNA, LNP-s, PF, B ooster, 100mcg/0.5mg (Moderna) 10/12/2021,04/10/2021 PPD 01/16/2016,01/07/2016 Pneumococcal Conjugate Vacc, 13 Valent (Prevnar) 04/19/2017 Pneumococcal Polysaccharide PPV23 (Pneumovax) 06/29/2019,10/29/2008 Seasonal Influenza, PF, 6 M & above, IM , (FluLaval or Fluzone) 02/01/2022,02/24/2021,06/07/2020,090 07/2018,04/19/2017 Seasonal Influenza, Split, I IV3, With Preserve, [...] encounter Miscellaneous Notes * Telephone Encounter - Rosalind Jeffers PA-C - 09/19/2023 11:40 AM EDT Signed Prescriptions: Disp Refills Metoprolol Succinate ER 25 MG Oral Tablet *90 Tab*3 Sig: TAKE ONE TABLET BY MOUTH EVERY DAY Authorizing Provider: ROSALIND JEFFERS * Telephone Encounter - Josey Pringle CMA - 09/19/2023 10:37 AM EDTPending Prescriptions: Disp Refills Metoprolol Succinate ER 25 MG Oral Tablet *90 Tab*3 Sig: TAKE ONE TABLET BY MOUTH EVERY DAY * Telephone Encounter - Josey Pringle CMA - 09/19/2023 10:37 AM EDT Did you pend patient's preferred pharmacy and medication before forwarding?yes Pharmacy: [facility] Pending Prescriptions: Disp Refills Metoprolol Succinate ER 25 MG Oral Tablet*90 Tab*3 Sig: TAKE ONE TABLET BY MOUTH EVERY DAY Last Visit: 04/30/2023 (in office), Visit date not found (telemedicine) Next Visit: 09/19/2023 If no future appointments scheduled, and last appointment is greater than a year ago, please schedule patient for a follow-up appointment Last date the medication was ordered: 09-17-2022 Is this request for a controlled substance?No Urine Drug Screen: Results for orders placed or performed in visit on 06/29/19 TOX SCREEN, URINE, W/ CONFIRMATION Result Value Amphetamine NEGATIVE Benzodiazepines NEGATIVE Cannabinoids POSITIVE (A) Cocaine Metabolite NEGATIVE HYDROCODONE NEGATIVE Morphine / Codeine NEGATIVE METHADONE METABOLITE NEGATIVE OXYCODONE POSITIVE (A) TOX COMMENT THE ABOVE SCREENING RESULTS ARE PRESUMPTIVE AND CAN ONLY BE USED FOR MEDICAL PURPOSES. POSITIVE RESULTS REFLEX TO CONFIRMATORY TESTING. Cutoff Concentration *Note: Due to a large number of results and/or encounters for the requested time period, some results have not been displayed. A complete set of results can be found in Results Review. Patient Phone Numbers Labs: Lab Results Component Value Date/Time CREAT 1.3 (H) 07/15/2023 01:08 PM CREAT 1.31 06/19/2021 12:00 AM CREAT 1.4 (H) 02/04/2020 10:13 AM POTASSIUM 4.1 07/15/2023 01:08 PM POTASSIUM 4.3 06/19/2021 12:00 AM POTASSIUM 4.8 02/04/2020 10:13 AM TSH 1.50 06/17/2022 04:45 PM TSH 1.20 10/14/2017 09:44 AM LDLCALC 77 07/15/2023 01:08 PM LDLCALC 60 02/04/2020 10:13 AM LDLDIRECT NOT APPLICABLE 02/04/2020 10:13 AM ALT 15 09/01/2023 01:29 PM ALT 22 02/04/2020 10:13 AM HGBA1C 5.4 06/17/2022 04:45 PM HGBA1C 5.3 06/29/2019 08:55 AM documented in this encounter Plan of Treatment Upcoming Encounters Date Type Department Care Team (Late st Contact Info) Description 09/19/2023 2:30 PM EDT Office Visit Cardiology, [facility] [address] [place] [address] Rosalind Jeffers PA-C [address] [place] [address] 09/19/2023 3:30 PM EDT Immunization/Injec tion Ancillary [facility] [address] [place] [address] Mark Nurse [facility] [address] [place] [address] 03/02/2024 11:40 AM EDT Office Visit Family [facility] [address] [place] [address] Jeff Daivs, [address] [place] [address] 08/30/2024 12:00 PM EDT Office Visit [facility] [address] [place] [address] Jeff Davis, [address] [place] [address] Health Maintenance Due Date Last Done Comments DISCUSS TOBACCO CESSATION (REFER TO SMARTSET #5738) 1960 Colonoscopy 2004 Sigmoidoscopy 2004 DTaP,Tdap,and Td Vaccines (2 - Td or Tdap) 07/21/2019 07/21/2009 COVID-19 Vaccine (3 - Moderna risk series) 11/09/2021 10/12/2021, 10/12/2021, 04/10/2021, Additional history exists GFR 01/13/2024 07/15/2023, 07/2022, 06/17/2022, Additional history exists Influenza Vaccine (FLU shot) (Season Ended) 2024 02/01/2022, 02/24/2021, 06/07/2020, Additional history exists Fecal Occult Blood Test 02/13/2024 02/13/20, 02/12/2023, 01/25/2022, Additional history exists CKD PHOS USE SMARTSET 62138 05/07/202404/25, 12/14/2021, 02/28/2021, Additional history exists Pneumococcal Vaccine: Pediatrics (0 to 5 Years) and At-Risk Patients (6 to 64 Years) (4 of 4 - PPSV23 or PCV20) 06/29/2024 06/29/2019, 04/19/2017, 10/29/2008 Albumin/Creatinine Ratio 07/15/2024 024, 12/26/2022, 06/17/2022, Additional history exists CKD HGB USE SMARTSET 12355 07/15/202407/15, 07/15/2023, 12/26/2022, Additional history exists O2 [...] this encounter Medical Devices Implanted Type Area Audio Production Manager Device Identifier Shelf Expiration Date Model / Serial / Lot Filter Vasc Femoral Celect - [id number] Implanted:Qty: 1 on 07/20/2014 by Ricky Rodríguez MD at OR [facility] [place] Right: Groin COOK : [employer] 10/24/2016 [id number] / / [id number] Mesh 3dmax Mid Lg Lt 4x6in - [id number] Implanted:Qty: 1 on 02/20/2022 by Martín Rubio MD at OR [facility] Left: Groin CR BARD : DAVOL 07/23/2026 [id number] / / [id number] documented as of this encounter Visit Diagnoses Diagnosis Non-ischemic cardiomyopathy (HCC) Other primary cardiomyopathies H/O right coronary artery stent placement Postsurgical percutaneous transluminal coronary angioplasty status HTN, goal below 140/90 Unspecified essential hypertension Coronary artery disease involving [place] coronary artery of [place] heart without angina pectoris documented in this encounter Advance Directives Latest Code Status on File Code Status Date Activated Date Inactivated Comments Full Code 02/20/2022 9:23 AM 02/20/2022 8:44 PM Question Answer Comments Discussion of Advance Directives occurred with: Not Discussed due to patient's condition Does the patient have a Marylin ng Will? No Does the patient have Health Care Power of Flight Purser? No Code Status History Code Status Date [...] the patient have Health Care Power of Flight Purser? Yes, in chart and reviewed as current Full Code 07/16/2014 2:36 PM 08/02/2014 2:53 PM This order reflects the patients wishes and were consensually agreed upon. Question Answer Comments Discussion of Advance Directives occurred with: Not Discussed Does the patient have a Living Will? No Does the patient have Health Care Power of Flight Purser? No Full Code 06/15/2012 11:06 AM 06/17/2012 9:34 PM This order reflects the patients wishes and were consensually agreed upon. Question Answer Comments Discussion of Advance Directives occurred with: Patient Does the patient have a Living Will? No Does the patient have Health Care Power of Flight Purser? No Full Code 10/28/2008 3:52 AM 10/29/2008 6:28 PM This or keri reflects the patients wishes and were consensually agreed upon. Question Answer Comments Discussion of Advance Directives occurred with: Patient Does the patient have a Living Will? No Does the patient have Health Care Power of Flight Purser? No Care Teams Sem[employer]ductor Testing Group Leader Relationship Specialty Start Date End Date Jeff Davis DO [address] [place] [address] PCP - General Family Medicine 12/08/17 documented as of this encounter
--- OUTSIDE RECORDS SUMMARY | 2023-09-28 11:03 | External Medical Summary | Summary of Care ---
Author Name Unknown Organization [facility] Address [address] [facility] [address] Phone [phone] Care Team Providers Care Equity Sales Assistant Name Role Phone Gaudencio Davis DO Primary Care Provider Reason for Visit * Reason Comments Medication Refill Encounter Details Date Type Department Care Team (Late st Contact Info) Description 09/14/2023 Refill Family Practice [facility] [address] [place] [address] Gaudencio Davis DO [address] [place] [address] Diffuse connective tissue disease (HCC) Allergies Active Allergy Reactions Criticality Noted Date [...] as of this encounter (statuses as of 09/16/2023) Medications Medication Sig Dispensed Refills Start Date End Date Status Sildenafil Citrate 20 MG Oral Tablet Take [...] placement,HTN, goal below 140/90,Coronary artery disease involving [place] coronary artery of [place] heart without angina pectoris TAKE ONE TABLET BY MOUTH EVERY DAY 90 Tablet 3 09/17/2022 4 Active Additional Information Patient taking differently: 25 [...] severe Pain 120 Tablet 0 09/16/2023 Active oxyCODONE HCl 5 MG Oral Tablet (Oxy IR)Indications:Diff use connective tissue disease (HCC) Take 1 Tablet by mouth every 4 hours as needed for Pain, Severe. 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 0 12/31/2022 Stem cells transplant status 12/31/2022 Gastro-esophageal reflux disease without esophag itis 12/31/2022 Depression, unspecified 06/20/2022 Recurrent major depressive disorder 06/20/2022 Recurrent left inguinal hernia 02/20/2022 COPD, group B, by GOLD 2017 classification 12/31 Overview: Per COPD GOLD Classification Bone marrow transplant status 12/17/2021 Major depressive disorder with single episode History of [place] (myocardial infarction) 12/17/2021 Myoneural disorder, unspecified 12/17/2021 [...] placement 2019 Coronary artery disease invo lving [place] coronary artery of [place] heart without angina pectoris 02/09/2020 Dyslipidemia, goal [...] as of this encounter (statuses as of 09/16/2023) Resolved Problems Problem Noted Date Diagnosed Date [...] as of this encounter (statuses as of 09/16/2023) Immunizations Name Administration Dates Next Due COVID-19 [...] encounter Miscellaneous Notes * Telephone Encounter - Gaudencio Davis DO - 09/16/2023 11:57 AM EDT Signed Prescriptions: Disp Refills oxyCODONE HCl 5 MG Oral Tablet (Oxy IR) 120 Ta*0 Sig: Take 1 Tablet by mouth every 4 hours as needed for Pain, Severe. Authorizing Provider: GAUDENCIO DAVIS * Telephone Encounter - Karma Stephens [facility] - 09/15/2023 8:41 PM EDT Pending Prescriptions: Disp Refills oxyCODONE HCl 5 MG Oral Tablet (Oxy IR) 120 Ta*0 Sig: Take 1 Tablet by mouth every 4 hours as needed for Pain, Severe. * Telephone Encounter - Karma Stephens [facility] - 09/15/2023 8:40 PM EDT I have reviewed the patients controlled substance dispensing history in the Prescription Drug Monitoring Program in compliance with the [facility] regulations before prescribing a controlled substance. PDMP checked on 09/15/2023. Pending Prescriptions: Disp Refills oxyCODONE HCl 5 MG Oral Tablet (Oxy IR) 120 Ta*0 Sig: Take 1 Tablet by mouth every 4 hours as needed for Pain, Severe. Last Visit: 07/29/2023 (in office), Visit date not found (telemedicine) Next Visit: 03/02/2024 Date medication was last filled: 08/15/23 Date medication is due for refill: 08/21/23 Pharmacy: [facility] Is this request for a controlled substance? Yes and Urine Drug Screen Not completed Toxicology results: Results for orders placed or performed in [...] results can be found in Results Review. Please approve if appropriate. Thank you, Karma Stephens, PharmD Clinical Pharmacist [facility] ([facility]) (Formerly Telepharmacy) [phone] 09/15/2023, 8:41 PM documented in this encounter Plan of Treatment Upcoming Encounters Date Type Department Care Team (Late st Contact Info) Description 09/19/2023 2:30 PM EDT Office Visit Cardiology, [facility] [address] [place] [address] [address] Mey Arzate PA-C [address] [place] [address] 03/02/2024 11:40 AM EDT Office Visit Family Practice [facility] [address] [place] [address] Gaudencio Davis, DO [address] [place] [address] 08/30/2024 12:00 PM EDT Office Visit Family Practice [facility] [address] [place] [address] Gaudencio Davis, DO [address] [place] [address] Health Maintenance Due Date Last Done Comments DISCUSS TOBACCO CESSATION (REFER TO SMARTSET #5315) 1960 Colonoscopy 2004 Sigmoidoscopy 2004 DTaP,Tdap,and Td [...] Additional history exists CKD PHOS USE SMARTSET 18627 05/07/202404/25, 12/14/2021, 02/28/2021, Additional history exists Pneumococcal Vaccine: Pediatrics (0 to 5 Years) and At-Risk Patients (6 to 64 Years) (4 of 4 - PPSV23 or PCV20) 06/29/2024 06/29/2019, 04/19/2017, 10/29/2008 Albumin/Creatinine Ratio 07/15/2024 024, 12/26/2022, 06/17/2022, Additional history exists CKD HGB USE SMARTSET 00216 07/15/202407/15, 07/15/2023, 12/26/2022, Additional history exists O2 [...] this encounter Medical Devices Implanted Type Area Hat Conditioner Device Identifier Shelf Expiration Date Model / Serial / Lot Filter Vasc Femoral Celect - [id number] Implanted:Qty: 1 on 07/20/2014 by Ricky Rodríguez MD at OR [facility] [place] Right: Groin COOK : [employer] 10/24/2016 [id number] / / [id number] Mesh 3dmax Mid Lg Lt 4x6in - [id number] Implanted:Qty: 1 on 02/20/2022 by Martín Rubio MD at OR [facility] Left: Groin CR BARD : DAVOL 07/23/2026 [id number] / / [id number] documented as of this encounter Visit Diagnoses Diagnosis Diffuse connective tissue disease (HCC) Unspecified diffuse connective tissue disease documented in this encounter Advance Directives Latest Code Status on File Code Status Date Activated Date Inactivated Comments Full Code 02/20/2022 9:23 AM 02/20/2022 8:44 PM Question Answer Comments Discussion of Advance Directives occurred with: Not Discussed due to patient's condition Does the patient have a Marylin ng Will? No Does the patient have Health Care Power of Digital Product Specialist? No Code Status History Code Status Date [...] the patient have Health Care Power of Digital Product Specialist? Yes, in chart and reviewed as current Full Code 07/16/2014 2:36 PM 08/02/2014 2:53 PM This order reflects the patients wishes and were consensually agreed upon. Question Answer Comments Discussion of Advance Directives occurred with: Not Discussed Does the patient have a Living Will? No Does the patient have Health Care Power of Digital Product Specialist? No Full Code 06/15/2012 11:06 AM 06/17/2012 9:34 PM This order reflects the patients wishes and were consensually agreed upon. Question Answer Comments Discussion of Advance Directives occurred with: Patient Does the patient have a Living Will? No Does the patient have Health Care Power of Digital Product Specialist? No Full Code 10/28/2008 3:52 AM 10/29/2008 6:28 PM This or keri reflects the patients wishes and were consensually agreed upon. Question Answer Comments Discussion of Advance Directives occurred with: Patient Does the patient have a Living Will? No Does the patient have Health Care Power of Digital Product Specialist? No Care Teams Equity Sales Assistant Relationship Specialty Start Date End Date Gaudencio Davis DO [address] [place] [address] [address] PCP - General Family Medicine 12/08/17 documented as of this encounter
--- OUTSIDE RECORDS SUMMARY | 2023-09-28 11:03 | External Medical Summary | Summary of Care ---
Author Name Unknown Organization [facility] Address [address] [address] Phone [phone] Care Team Providers Care Room Worker Name Role Phone Rob Davisr Anaid Primary Care Provider Reason for Visit * Reason Comments Nurse Documentation Encounter Details Date Type Department Care Team (Late st Contact Info) Description 09/19/2023 3:30 PM EDT Immunization/I njection Ancillary [facility] [address] [place] [address] [facility] just[facility] [address] [place] [address] Need for MMRV (dftsenx-bkwdn-dmpnq la-varicella) vaccine* Allergies Active Allergy Reactions Criticality Noted Date Comments Sulfamethoxazole-Trimethopr im Rash 12/26/2010 Celecoxib 12/19/2010 Hives Cephalexin 11/11/2017 Body aches Hydroxychloroquine Other (Please comment) 08/05/2022 Redness and burning sensation to face and hands/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 Levofloxacin Other (Please comment) High 07/23/2017 Tendonitis, connective tissue problems Mycophenolate Other (Please comment) 09/19/2023 Depression Sulfa Antibiotics Edema Other 05/09/2014 documented as [...] 07/29/2023 PREDNISONE 20 MG PO TABSIndications:Scle roderma ([facility]),Diffuse connective tissue disease ([facility]) 3 daily x 5d, 2 daily x [...] MG Oral Tablet Delayed ReleaseIndications:N on-ischemic cardiomyopathy ([facility]),H/O right coronary artery stent placement Take 1 Tab by mouth daily. 90 Tab 5 02/20/2021 Active buPROPion HCl ER (SR) 150 MG Oral [...] before bedtime. 180 Tablet 3 08/28/2023 Active Additional Information Patient not taking.Reported on 09/19/2023 oxyCODONE HCl 5 MG Oral Tablet (Oxy IR)Indications:Diffu se connective tissue disease ([facility]) Take 1 Tablet by mouth every 4 hours as needed for severe Pain 120 Tablet 0 09/16/2023 Active azaTHIOprine 50 MG Oral Tablet (Imuran) TAKE 2 TABS BY MOUTH IN THE MORNING AND 1 TAB IN THE EVENING DIRECTED 0 09/09/2023 Active documented as of this encounter (statuses as of 09/19/2023) Active Problems Problem Noted Date Diagnosed Date Systemic sclerosis with lung involvement 024 Systemic sclerosis 07/29/2023 ILD (interstitial lung disease) 07/29/2023 Hypertensive kidney disease with stage 3a chronic kidney disease 07/24/2023 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 0 12/31/2022 Stem cells transplant status 12/31/2022 Gastro-esophageal reflux disease without esophag itis 12/31/2022 Depression, unspecified 06/20/2022 Recurrent major depressive disorder 06/20/2022 Recurrent left inguinal hernia 02/20/2022 COPD, group B, by GOLD 2017 classification 12/31 Overview: Per COPD GOLD Classification Bone marrow transplant status 12/17/2021 Major depressive disorder with single episode History of [place] (myocardial infarction) 12/17/2021 Myoneural disorder, unspecified 12/17/2021 [...] placement 2019 Coronary artery disease invo [place]ving [place] coronary artery of [place] heart without angina pectoris 02/09/2020 Dyslipidemia, goal [...] LNP-s, PF, B ooster, 100mcg/0.5mg (Moderna) 10/12/2021,04/10/2021 MMR - Measles/Mumps/Rubella Vaccine 09/19/2023 PPD 01/16/2016,01/07/2016 Pneumococcal Conjugate Vacc, 13 Valent (Prevnar) 04/19/2017 Pneumococcal Polysaccharide PPV23 (Pneumovax) 06/29/2019,10/29/2008 Seasonal Influenza, PF, 6 M & above, IM , (FluLaval or Fluzone) 02/01/2022,02/24/2021,06/07/2020,09/0 07/2018,04/19/2017 Seasonal Influenza, Split, I IV3, With [...] No 07/16/2014 documented as of this encounter Plan of Treatment Upcoming Encounters Date Type Department Care Team (Late st Contact Info) Description 03/02/2024 11:40 AM EDT Office Visit Family Practice [facility] [address] [place] [id number] Jeff Davis, DO [address] [place] [address] 04/05/2024 2:30 PM EST Office Visit Cardiology, [facility] [address] [place] [address] Luís Herrera, DO [address] [place] [address] 08/30/2024 12:00 PM EDT Office Visit [facility] [address] [place] [address] Jeff Davis, DO [address] [place] [address] Health Maintenance Due Date Last Done Comments [...] Additional history exists CKD PHOS USE SMARTSET 63235 05/07/202404/25, 12/14/2021, 02/28/2021, Additional history exists Pneumococcal Vaccine: Pediatrics (0 to 5 Years) and At-Risk Patients (6 to 64 Years) (4 of 4 - PPSV23 or PCV20) 06/29/2024 06/29/2019, 04/19/2017, 10/29/2008 Albumin/Creatinine Ratio 07/15/2024 024, 12/26/2022, 06/17/2022, Additional history exists CKD HGB USE SMARTSET 67247 07/15/202407/15, 07/15/2023, 12/26/2022, Additional history exists O2 [...] this encounter Medical Devices Implanted Type Area Director Of Regulatory Affairs Device Identifier Shelf Expiration Date Model / Serial / Lot Filter Vasc Femoral Celect - [id number] Implanted:Qty: 1 on 07/20/2014 by Ricky Rodríguez [place] [facility] [place] Groin COOK : [employer] 10/24/2016 [id number] / / [id number] Mesh 3dmax Mid Lg Lt 4x6in - [id number] Implanted:Qty: 1 on 02/20/2022 by Martín Rubio MD at OR [facility] Left: Rajwinder FERRARA BARD : KSENIA 07/23/2026 [id number] / / [id number] documented as of this encounter Visit Diagnoses Diagnosis Need for MMRV (pymriyc-levys-ywnnoaa-varicella) vaccine- Primary Need for prophylactic vaccination and inoculation against other combinations of diseases documented in this encounter Advance Directives Latest Code Status on File Code Status Date Activated Date Inactivated Comments Full Code 02/20/2022 9:23 AM 02/20/2022 8:44 PM Question Answer Comments Discussion of Advance Directives occurred with: Not Discussed due to patient's condition Does the patient have a Marylin ng Will? No Does the patient have Health Care Power of [place] Supervisor? No Code Status History Code Status Date [...] the patient have Health Care Power of [place] Supervisor? Yes, in chart and reviewed as current Full Code 07/16/2014 2:36 PM 08/02/2014 2:53 PM This order reflects the patients wishes and were consensually agreed upon. Question Answer Comments Discussion of Advance Directives occurred with: Not Discussed Does the patient have a Living Will? No Does the patient have Health Care Power of [place] Supervisor? No Full Code 06/15/2012 11:06 AM 06/17/2012 9:34 PM This order reflects the patients wishes and were consensually agreed upon. Question Answer Comments Discussion of Advance Directives occurred with: Patient Does the patient have a Living Will? No Does the patient have Health Care Power of [place] Supervisor? No Full Code 10/28/2008 3:52 AM 10/29/2008 6:28 PM This or keri reflects the patients wishes and were consensually agreed upon. Question Answer Comments Discussion of Advance Directives occurred with: Patient Does the patient have a Living Will? No Does the patient have Health Care Power of [place] Supervisor? No Care Teams Room Worker Relationship Specialty Start Date End Date Jeff Davis DO [address] [place] [address] PCP - General Family Medicine 12/08/17 documented as of this encounter
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
--- OUTSIDE RECORDS SUMMARY | 2023-09-28 11:04 | External Medical Summary | Summary of Care ---
Author Name Unknown Organization [facility] Address [address] [facility] [address] Phone [phone] Care Team Providers Care Safe Expert Name Role Phone Jeff Davis Primary Care Provider Encounter Details Date Type Department Care Team (Late st Contact Info) Description 09/04/2023 Result Scan Unspecified Department <No scans attached> Allergies Active Allergy Reactions Criticality Noted Date [...] as of this encounter (statuses as of 09/09/2023) Medications Medication Sig Dispensed Refills Start Date [...] placement,HTN, goal below 140/90,Coronary artery disease involving [place] coronary artery of [place] heart without angina pectoris TAKE ONE TABLET [...] as of this encounter (statuses as of 09/09/2023) Active Problems Problem Noted Date Diagnosed Date Systemic sclerosis with lung involvement 024 Systemic sclerosis 07/29/2023 ILD (interstitial lung disease) 07/29/2023 Hypertensive kidney disease with stage 3a chronic kidney disease 07/24/2023 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 0 12/31/2022 Stem cells transplant status 12/31/2022 Gastro-esophageal reflux disease without esophag itis 12/31/2022 Depression, unspecified 06/20/2022 Recurrent major depressive disorder 06/20/2022 Recurrent left inguinal hernia 02/20/2022 COPD, group B, by GOLD 2017 classification 12/31 Overview: Per COPD GOLD Classification Bone marrow transplant status 12/17/2021 Major depressive disorder with single episode History of RI (myocardial infarction) 12/17/2021 Myoneural disorder, unspecified 12/17/2021 [...] placement 2019 Coronary artery disease invo lving [place] coronary artery of [place] heart without angina pectoris 02/09/2020 Dyslipidemia, goal [...] as of this encounter (statuses as of 09/09/2023) Resolved Problems Problem Noted Date Diagnosed Date [...] as of this encounter (statuses as of 09/09/2023) Immunizations Name Administration Dates Next Due COVID-19 [...] 03/02/2024 11:40 AM EDT Office Visit Family [facility] [address] [place] [address] Jeff Davis, DO [address] [place] [address] 08/30/2024 12:00 PM EDT Office Visit Family Practice [facility] [address] [place] [address] Jeff Davis, DO [address] [place] [address] Health Maintenance Due Date Last Done Comments DISCUSS TOBACCO CESSATION (REFER TO SMARTSET #4862) 1959 Colonoscopy 2004 Sigmoidoscopy 2004 DTaP,Tdap,and Td [...] Additional history exists CKD PHOS USE SMARTSET 26001 05/07/202404/25, 12/14/2021, 02/28/2021, Additional history exists Pneumococcal Vaccine: Pediatrics (0 to 5 Years) and At-Risk Patients (6 to 64 Years) (4 of 4 - PPSV23 or PCV20) 06/29/2024 06/29/2019, 04/19/2017, 10/29/2008 Albumin/Creatinine Ratio 07/15/2024 024, 12/26/2022, 06/17/2022, Additional history exists CKD HGB USE SMARTSET 73894 07/15/202407/15, 07/15/2023, 12/26/2022, Additional history exists O2 [...] this encounter Medical Devices Implanted Type Area Pocket Builder Device Identifier Shelf Expiration Date Model / Serial / Lot Filter Vasc Femoral Celect - [id number] Implanted:Qty: 1 on 07/20/2014 by Ricky Rodríguez MD at [place] [facility] [place] Right: Groin COOK : [employer] 10/24/2016 [id number] / / [id number] Mesh 3dmax Mid Lg Lt 4x6in - [id number] Implanted:Qty: 1 on 02/20/2022 by Martín Rubio MD at OR [facility] Left: Groin CR BARD : DAVOL 07/23/2026 [id number] / / [id number] documented as of this encounter Procedures Procedure Name Priority Date/Time Associated Diagnosis Comments EKG SCANNED RESULT 09/04/2023 documented in this encounter Results * EKG SCANNED RESULT (09/04/2023) 09/04/2023 No Physician Data Unknown EKG documented in this encounter Advance Directives Latest Code Status on File Code Status Date Activated Date Inactivated Comments Full Code 02/20/2022 9:23 AM 02/20/2022 8:44 PM Question Answer Comments Discussion of Advance Directives occurred with: Not Discussed due to patient's condition Does the patient have a Marylin ng Will? No Does the patient have Health Care Power of Vamp Stitcher? No Code Status History Code Status Date [...] the patient have Health Care Power of Vamp Stitcher? Yes, in chart and reviewed as current Full Code 07/16/2014 2:36 PM 08/02/2014 2:53 PM This order reflects the patients wishes and were consensually agreed upon. Question Answer Comments Discussion of Advance Directives occurred with: Not Discussed Does the patient have a Living Will? No Does the patient have Health Care Power of Vamp Stitcher? No Full Code 06/15/2012 11:06 AM 06/17/2012 9:34 PM This order reflects the patients wishes and were consensually agreed upon. Question Answer Comments Discussion of Advance Directives occurred with: Patient Does the patient have a Living Will? No Does the patient have Health Care Power of Vamp Stitcher? No Full Code 10/28/2008 3:52 AM 10/29/2008 6:28 PM This or keri reflects the patients wishes and were consensually agreed upon. Question Answer Comments Discussion of Advance Directives occurred with: Patient Does the patient have a Living Will? No Does the patient have Health Care Power of Vamp Stitcher? No Care Teams Safe Expert Relationship Specialty Start Date End Date Jeff Davis DO [address] [place] [address] PCP - General Family Medicine 12/08/17 documented as of this encounter
[2023-09-28] MEDS: RIVAROXABAN 10 MG TABLET PO SCH (13:07)
[2023-09-29] MEDS: ONDANSETRON INJ 2 MG/ML 2 ML VIAL IV PRN (06:36)
--- NOTE | 2023-09-29 07:35 | Surgery Progress Note ---
Date of Service September 29, 2023 Assessment & Plan (1) Status post right knee replacement: Plan: 63-year-old gentleman postop day 3 from a right knee replacement. He is doing reasonably well. Bit more painful today which is not too unusual. He is neurologically intact. Just waiting for placement. Plan 1. DVT prophylaxis including thigh-high teds, SCDs, Xarelto for 1 month. 2. PT/OT. Weight-bear as tolerated. Right total knee protocol. 3. Pain control doing okay with current pain regimen. 4. Disposition plan to discharge to rehab or senior care facility. Will hopefully hear about this today. He is really hoping not to go home. Admission and Anticipated Discharge Date Admission Date: September 28, 2023 Subjective 3-year-old gentleman now postoperative day 3 from right knee replacement. He is having a bit more pain this morning. Pain medicines does seem to help. No chest pain or shortness of breath. Mostly just waiting for placement. He lives alone and does not feel comfortable going home. Physical Exam Physical Exam: Physical examination is a pleasant middle-age male. He is lying in bed looks pretty comfortable this morning. Examination of the right leg reveals dressing be clean dry and intact. His leg is well aligned he can dorsiflex and plantarflex his foot appropriately. He is neurologically intact. Results & Data Vital Signs (Past 12 Hours) Vital Signs Temp Pulse Resp BP Pulse Ox O2 Del Method 09/29/23 07:12 36.5 C 70 18 114/70 96 Room Air 09/29/23 06:48 36.3 C L 66 16 113/69 94 Room Air 09/28/23 22:10 36.6 C 70 18 176/90 H 95 Room Air 09/28/23 21:20 Room Air PG Care Time/CCT Total # of Minutes Spent Total Time Spent with Patient: Total time spent is greater than 50% in coordination of care (as documented) at patient's floor/unit and/or counseling patient: Coding Level of Care Code 61888 Post Operative Follow-Up Diagnoses Status post right knee replacement Z96.651
--- NOTE | 2023-09-30 09:05 | Surgery Progress Note ---
Date of Service September 30, 2023 Assessment & Plan (1) Status post right knee replacement: Plan: 63-year-old gentleman postop day 4 from a right knee replacement doing reasonably well. He was hoping to go to rehab but got denied. He is now decided to go home with some home health. Pain seems to be a little bit better. He is neurologically intact. Plan: 1. DVT prophylaxis including thigh-high teds, SCDs, Xarelto for 1 month. 2. PT/OT. Weight-bear as tolerated. Right total knee protocol. 3. Pain control doing okay with current pain regimen. 4. Disposition plan to discharge to home with some home health later today. Admission and Anticipated Discharge Date Admission Date: September 28, 2023 Subjective 63-year-old gentleman postop day 4 from a right knee replacement. He is doing pretty well. Pain seems a little bit better today. No chest pain or shortness of breath. Not feeling dizzy or lightheaded. He was hoping to go to [facility] but got denied by insurance. Physical Exam Physical Exam: Physical examination was a pleasant middle-age male. He is walking in the hallways with a therapist and looks to be getting along pretty well. Examination of the right knee reveals just a slight bit of bloody drainage. Some moderate swelling. They can dorsiflex and plantarflex his foot appropriately. He is neurologically intact. Results & Data Vital Signs (Past 12 Hours) Vital Signs Temp Pulse Resp BP Pulse Ox O2 Del Method 09/30/23 07:17 36.7 C 78 16 145/74 H 93 Room Air PG Care Time/CCT Total # of Minutes Spent Total Time Spent with Patient: Total time spent is greater than 50% in coordination of care (as documented) at patient's floor/unit and/or counseling patient: Coding Level of Care Code 04309 Post Operative Follow-Up Diagnoses Status post right knee replacement Z96.651
== END 2023-09-30 11:44 | disposition home health service (06) | DRG 470 ==
LOC: 3N 09:19 → ASU 09:19